=== PATIENT | female | born 1960 | race Caucasian/White ===

== ENCOUNTER 2024-11-16 14:03 | Observation (INO) | payer OTHER, SELFPAY ==
[2024-11-16 14:03] VITALS: BP 120/67; PULSE 85; RESP 14; TEMP 36.4; O2SAT 95
[2024-11-16 14:21] LABS: Absolute Lymphocyte Count 1.75 X10^3/uL (0.83-4.51); Absolute Neutrophil Count 6.4 X10^3/uL (2.0-7.7); Basophil# 0.04 X10^3/uL; Basophil% 0.4 % (0-1); Eosinophil# 0.04 X10^3/uL; Eosinophils% 0.4 % (0-5); Hematocrit 34.3 % (37-47); Hemoglobin 11.8 g/dL (12.0-15.0); Lymphocyte # 1.75 X10^3/ul (0.83-4.51); Lymphocyte % 19.5 % (19-41); Mean Corp Hgb Conc 34.4 g/dL (32-36); Mean Corpuscular Hgb 30.9 pg (27.0-32.0); Mean Corpuscular Volume 89.8 fL (81-99); Mean Platelet Vol. 9.3 fl (6.2-12.0); Monocyte# 0.75 X10^3/uL; Monocyte% 8.4 % (0-10); NRBC Flagged by Analyzer 0 % (0-5); Neutrophil # 6.36 X10^3/uL (2.7-7.7); Neutrophil % 70.9 % (47-70); Platelet Count 433 K/mm3 (150-450); RBC Distribution Width CV 12.9 % (11.6-14.6); RBC Distribution Width SD 42.4 fl (35.1-43.9); Red Blood Count 3.82 M/mm3 (4.2-5.4)
--- NOTE | 2024-11-16 14:33 | ED.VIS.BACK ---
HPI History of Present Illness Chief Complaint: Back PFSH PFS Home Medications ?Medication ?Instructions ?Recorded ?Last Taken ?Type amlodipine 5 mg tablet 5 mg PO DAILY 11/16/24 11/16/24 History losartan 50 mg tablet 50 mg PO DAILY 11/16/24 11/16/24 History pravastatin 40 mg tablet 40 mg PO QHS 11/16/24 11/15/24 History Allergy/AdvReac Type Severity Reaction Status Date / Time No Known Allergies Allergy Verified 11/16/24 14:07 Social History Smoking Status: Never smoker EXAM Physical Exam Const Vital Signs: 11/16/24 14:03 11/16/24 16:04 11/16/24 16:55 Temperature 97.5 F L 98.7 F Temperature Source Oral Pulse Rate 85 83 84 Respiratory Rate 14 19 H 25 H Blood Pressure 120/67 124/67 H 127/71 H Blood Pressure Mean 84 86 89 Pulse Ox 95 94 94 Oxygen Delivery Method Room Air Room Air MDM MDM MDM Narrative Medical decision making narrative: HISTORY OF PRESENT ILLNESS: 64-year-old female presents with concern for right mid upper back pain. She notes she had an abdominal surgery (colostomy) done 3 weeks ago in [place]. She notes last evening the pain started. She further states also last night she had right-sided back pain is located in the mid upper back along the inferior scapula. Is worse with a deep breath. Also no shortness of breath. Denies cough fever chills Patient denies any saddle anesthesia, urinary retention, bowel or bladder incontinence, lower extremity weakness, fever or IV drug use, no recent spinal manipulation or surgery, no recent urinary catheterization. The patient denies immobilization in the last 3 days, denies previous diagnosis of DVT or PE, hemoptysis, unilateral leg swelling or malignancy with treatment the last 6 months or palliative. No estrogen use noted. Does not recent surgery. REVIEW OF SYSTEMS: Pertinent positives: Back pain, right posterior rib pain, pleuritic pain Pertinent negatives: Syncope PHYSICAL EXAM: Nursing triage notes reviewed, Vital signs reviewed Constitutional: please see mdm HENT: MMM Eyes: Pupils equal round and reactive to light, Extraocular muscles intact Neck: No stridor, no JVD, full neck ROM Lungs: Clear to auscultation, No wheezing or rales. No increased work of breathing, no conversational dyspnea, no accessory muscle use, no nasal flaring. No respiratory distress noted Heart: Regular rate and rhythm, No murmurs, No rubs and No gallops, 2+ distal pulses (radial, femoral, posterior tibial) in all extremities Abdomen: Soft, there is no tenderness, rigidity, rebound or guarding, no obvious peritoneal signs, no palpable pulsatile abdominal masses, no auscultated abdominal bruit : No CVAT Extremities: No edema Back: No rashes noted. No midline step-offs deformities to the CT or L-spine. There is some slight tenderness palpation the infrascapular region Neuro: intact sensation L1-S1 dermatomal distributions. Intact 5/5 strength in hip flexion (T12-L3). Knee extension (L2-L4). Ankle dorsiflexion (L4-L5). Ankle plantar flexion (S1). Great toe extension (L5). 2+ patellar and Achilles DTRs. Skin: No rash or lesions noted MEDICAL DECISION MAKING: Chief Complaint: Back pain External records reviewed: No prior imaging studies noted in [facility]'s EMR Factors affecting care: History of hypertension, hyperlipidemia, history of colostomy Social determinants of health: none History obtained from others: none Consults: Internal medicine (Dr. Parker) discussed admitting to PCU as a observation admission. MDM Narrative: The patient was initially hemodynamically stable, afebrile and nontoxic-appearing. Exam without focal cardiopulmonary abnormalities. No signs of focal lower extremity neurologic deficits. No midline step-offs deformities. No sign of trauma or rashes. I considered the following differential diagnosis: Musculoskeletal back pain, nephrolithiasis, pyelonephritis, postsurgical abnormality, PE There is no CVA tenderness to suggest nephrolithiasis or pyelonephritis Triage labs were placed including CBC, CMP and urinalysis I obtained a broad lab and imaging workup to further elucidate etiology of patient's complaints. Given recent surgery, pleuritic pain and shortness of breath I was most concerned about a pulmonary embolism. ALL IMAGES (IF OBTAINED) HAVE BEEN PERSONALLY REVIEWED AND INTERPRETED BY MYSELF. EKG with normal sinus rhythm rate of 90, normal axis, normal intervals, QTc 440, no sign of STEMI, no sign of WPW, ARVD or Brugada syndrome. No sign of right heart strain. CBC with no leukocytosis, mild anemia, no thrombocytopenia High-sensitivity troponin is negative, no evidence of myocardial ischemia BNP within normal suggestive no significant heart strain No coagulopathy noted on coagulation studies CMP without evidence of acute kidney injury, significant electrolyte abnormality, anion gap to suggest end organ hypo-perfusion, no evidence of metabolic acidosis with a normal bicarbonate, no evidence of hepatobiliary obstructive pathology. CT of the chest shows evidence of bilateral PEs, right heart strain The synthesis of the patient's history, physical exam, labs images suggest likely pulmonary emboli. Given his right heart strain will start on heparin and admit for observation overnight. Discussed hospitalist who agreed. The patient and/or family, caregivers express understanding. The patient and/or family, caregivers agrees with the plan. Shared decision making: I will have a discussion with the patient and or visitors regarding risk/benefits of further testing or admission. They will be made aware of of the risk/benefits inherent in this decision they will be given the opportunity to voice understanding. Total critical care time today provided was at least 35 minutes. This excludes separately billable procedures. Critical care time (if documented) is secondary to the patient having high probability of clinically significant/life threatening deterioration in the patient's condition which required my urgent intervention. Impression: 1. Acute back pain 2. Acute pulmonary emboli Dispo: Admit to PCU This note was generated with [employer] dictation software. It may contain incorrect words, spelling, and punctuation that were not noted in review of the chart prior to signing. Lab Data Labs: Laboratory Results - last 24 hr 11/16/24 11/16/24 14:14 16:11 WBC 9.0 RBC 3.82 L Hgb 11.8 L Hct 34.3 L MCV 89.8 MCH 30.9 MCHC 34.4 RDW Std Deviation 42.4 RDW Coeff of Sea 12.9 Plt Count 433 MPV 9.3 Immature Gran % (Auto) 0.400 Neut % (Auto) 70.9 H Lymph % (Auto) 19.5 Mobile % (Auto) 8.4 Eos % (Auto) 0.4 Baso % (Auto) 0.4 Absolute Neuts (auto) 6.4 Absolute Lymphs (auto) 1.75 Nucleated RBC % 0 PT 16.2 H INR 1.3 APTT 34.6 Sodium 139 Potassium 3.9 Chloride 103 Carbon Dioxide 21.2 Anion Gap 15 BUN 12 Creatinine 0.69 L Est GFR (MDRD) Non-Af 98 BUN/Creatinine Ratio 17.5 Glucose 94 Calcium 9.4 Total Bilirubin 0.44 AST 28 ALT 29 Alkaline Phosphatase 101 Troponin T High Sens < 6 NT pro BNP II < 36 Total Protein 7.8 Albumin 3.5 Globulin 4.3 H Albumin/Globulin Ratio 0.8 L Lipase 22 Radiography Diagnostic Testing: Clinical Impression(s) from Imaging Studies Chest CTA 11/16/24 14:52 IMPRESSION: 1. Lobar, segmental and subsegmental pulmonary emboli involving the lower lobes bilaterally, as well as a small segmental pulmonary embolus in the right middle lobe. 2. Right heart strain present with an increased RV/LV ratio. 3. Bibasilar consolidative airspace opacities, possibly due to pulmonary edema, pneumonia or pulmonary infarct. 4. Trace bilateral pleural effusions. Findings discussed with Dr. Ramirez at 1545 hours on 11/16/2024 Reading Location: [facility] Discharge Plan Triage Chief Complaint: Back ED Provider: Uriel Ramirez Dx/Rx/DC Orders Prescriptions: No Action losartan 50 mg tablet 50 mg PO DAILY pravastatin 40 mg tablet 40 mg PO QHS amlodipine 5 mg tablet 5 mg PO DAILY Primary Care Provider: Corbin Archer Referrals: Corbin Archer, [Primary Care Provider] - Print Language: Vietnamese
--- NOTE | 2024-11-16 14:52 | CT_ITS ---
PROCEDURE: CTA CHEST W/WO CONTRAST 11/16/2024 REASON FOR EXAM: RIGHT SIDED PLEURITIC PAIN RECENT SURGERY R/O PE TECHNIQUE: CTA axial imaging of the chest with intravenous contrast. Coronal and Sagittal reconstruction series were provided. 3D, 3D post processing, 3D reconstructions, Maximum intensity projection (MIPs) Volume rendering and Shaded surface rendering was provided. One or more dose reduction techniques were used (e.g., Automated exposure control, adjustment of the mA and/or kV according to patient size, use of iterative reconstruction technique). COMPARISON: None. FINDINGS: Lungs/pleura: There are large consolidative airspace opacities in the lung bases bilaterally.Trace bilateral pleural effusions are present. Pulmonary arteries: Lobar, segmental and subsegmental PE are present in bilateral lower lobes. There is a segmental pulmonary embolus in the right middle lobe. Cardiovascular: The heart is normal in size.The RV/LV ratio is increased measuring 1.16.The aorta is unremarkable. Pericardium: No effusion. Mediastinum: Unremarkable. Lymph nodes: No lymph node enlargement by CT size criteria. Bones: No acute osseous abnormality. Soft tissues: Unremarkable. Upper abdomen: Hepatic steatosis is present. CT/CTA Chest W/WO Contrast IMPRESSION: 1. Lobar, segmental and subsegmental pulmonary emboli involving the lower lobes bilaterally, as well as a small segmental pulmonary embolus in the right middle lobe. 2. Right heart strain present with an increased RV/LV ratio. 3. Bibasilar consolidative airspace opacities, possibly due to pulmonary edema, pneumonia or pulmonary infarct. 4. Trace bilateral pleural effusions. Findings discussed with Dr. Ramirez at 1545 hours on 11/16/2024 Reading Location[facility]
--- NOTE | 2024-11-16 14:53 | EKG12_ITS ---
Test Reason : Blood Pressure : */* mmHG Vent. Rate : 90 BPM Atrial Rate : 90 BPM P-R Int : 170 ms QRS Dur : 90 ms QT Int : 360 ms P-R-T Axes : 48 11 64 degrees QTcB Int : 440 ms Normal sinus rhythm Normal ECG Confirmed by VI RAMOS, LAKIA ([id number]), publishing editor JENNY BOWIE ([id number]) on 11/17/2024 8:24:15 AM Referred By: DERICK Confirmed By: LAKIA LEBRON MD
[2024-11-16] MEDS: 0.9% Normal Saline (500mL Bag) 500 ML 1000 ML IV (15:05)
[2024-11-16] MEDS: Ketorolac 15 MG/ML Vial IV (15:06)
[2024-11-16] MEDS: Ondansetron 4 MG/2 ML Vial IV (15:06)
[2024-11-16] MEDS: Morphine 2 MG/ML Syringe IV (15:06)
[2024-11-16 15:09] LABS: ALB/GLOB Ratio 0.8 RATIO (0.9-2.4); AST(SGOT) 28 U/L (<=31); Alanine Aminotransfer ALT/SGPT 29 U/L (<=34); Albumin, Serum 3.5 g/dL (3.4-4.8); Alkaline Phosphatase 101 U/L (35-104); Anion Gap 15 (5-15); BUN 12 mg/dL (4-19); BUN/Creat Ratio 17.5 RATIO (10-20); Calcium,Total 9.4 mg/dL (7.6-11.0); Carbon Dioxide 21.2 mmol/L (21.0-32.0); Chloride 103 mmol/L (98-108); Creatinine, Serum 0.69 mg/dL (0.70-1.20); EST Glomerular Filtration Rate 98 (>60); Globulin 4.3 g/dL (2.2-4.2); Glucose 94 mg/dL (70-99); Potassium 3.9 mmol/L (3.3-5.1); Protein, Total 7.8 g/dL (5.9-8.4); Sodium Level 139 mmol/L (133-145); Total Bilirubin 0.44 mg/dL (0.00-1.30)
[2024-11-16 16:04] VITALS: BP 124/67; PULSE 83; RESP 19; O2SAT 94
[2024-11-16 16:07] VITALS: BMI 33.7
[2024-11-16] MEDS: Heparin Injection (Vial) 5,000 UNIT/ML VIAL 4000 UNIT IV (16:25)
[2024-11-16 16:26] LABS: Lipase 22 U/L (13-75)
[2024-11-16] MEDS: HEPARIN/D5w 25,000 UNITS 25,000 UNITS/250 ML IV.SOLN. 10 UNITS CONT INF (16:26)
[2024-11-16 16:28] LABS: Pro- Brain NATRIURETIC PEPTIDE < 36 pg/mL (<=900)
[2024-11-16 16:39] LABS: Troponin T High Sensitivity < 6 ng/L (<=14)
[2024-11-16 16:55] VITALS: BP 127/71; PULSE 84; RESP 25; TEMP 37.1; O2SAT 94
--- NOTE | 2024-11-16 16:58 | PCM.HP.STD ---
HPI - General General Date of Admission: 11/16/24 Date of Service: 11/16/24 Chief Complaint: Pleuritic pain, difficulty taking deep breaths HPI Narrative TIBURCIO DEL REAL, is a 64-year-old female with history of hypertension hyperlipidemia and recent perforated diverticulum in [place] requiring colostomy 3 weeks ago presented [facility] ED 11/16/2024 due to back pain. She was vitally stable and labs unremarkable aside from a hemoglobin of 11.8 however upon further discussion with the ED provider patient did report pain was worse with inspiration and felt deeper than a superficial back pain. CTA was obtained which showed multiple bilateral pulmonary emboli with concern for right heart strain and bibasilar consolidative opacities which were possibly due to pulmonary edema, pneumonia, or pulmonary infarct as well as trace bilateral pleural effusions. BNP and troponin within normal limits however given this concerns and the multiple emboli hospitalist contacted to admit under observation on blood thinners. Patient evaluated at bedside. She reports that she had been in her usual health until last night when she suddenly had a deep back pain with difficulty taking a deep breath, reports today it was not improving prompting her to come to the ED, denies any abdominal pain or problems with her ostomy, reports a little bit of a dry cough/clearing of her throat if she gets a tickle but no productive cough, no fevers or chills. Patient denies any swelling in her legs or any other problems since she left [facility] Home Medications ?Medication ?Instructions ?Recorded ?Last Taken ?Type amlodipine 5 mg tablet 5 mg PO DAILY 11/16/24 11/16/24 History losartan 50 mg tablet 50 mg PO DAILY 11/16/24 11/16/24 History pravastatin 40 mg tablet 40 mg PO QHS 11/16/24 11/15/24 History Allergy/AdvReac Type Severity Reaction Status Date / Time No Known Allergies Allergy Verified 11/16/24 14:07 Social History Smoking Status: Never smoker ROS ROS Narrative General: Denies fever/chills HENT: Denies headache, denies stuffy nose, denies sore throat EYES: Denies changes in vision Resp: Slight dry cough, difficulty taking a deep breath Cardiac: Denies chest pain GI: Denies abdominal pain, denies problem with ostomy, denies nausea/vomiting : Denies changes in urination Extremity: Denies swelling in her legs MSK: Denies weakness Neuro: Denies any numbness/tingling Heme: Denies any bleeding or bruising Skin: Denies rashes Psychiatric: No complaints voiced Vital Signs Vital Signs Vital Signs: 11/16/24 14:03 11/16/24 16:04 11/16/24 16:55 Temperature 97.5 F L 98.7 F Temperature Source Oral Pulse Rate 85 83 84 Respiratory Rate 14 19 H 25 H Blood Pressure 120/67 124/67 H 127/71 H Blood Pressure Mean 84 86 89 Pulse Ox 95 94 94 Oxygen Delivery Method Room Air Room Air Weight Weight: 89.2 kg Body Mass Index (BMI) 33.7 Physical Exam Narrative General: Alert, oriented, HEENT: Atraumatic, normocephalic Eyes: Anicteric, normal conjunctiva, extraocular movements grossly intact Neck: Supple Respiratory: Patient is slightly tachypneic as she has pain with taking a deep breath, patient diminished at the bases, too difficult for her to take a deep breath to have adequate auscultation of bases but no overt crackles, wheezes, rhonchi in the upper lung arteaga Cardiovascular: Regular rate and rhythm GI: Soft, nontender, nondistended Extremities: No edema Musculoskeletal: Moving all extremities Neuro: No overt focal neurological deficits Skin: No rashes appreciated Psych: Cooperative Results Lab / Micro Data 11/16/24 14:14 11/16/24 14:14 Labs: Laboratory Results - last 24 hr 11/16/24 14:14: WBC 9.0, RBC 3.82 L, Hgb 11.8 L, Hct 34.3 L, MCV 89.8, MCH 30.9, MCHC 34.4, RDW Std Deviation 42.4, RDW Coeff of Sea 12.9, Plt Count 433, MPV 9.3, Immature Gran % (Auto) 0.400, Neut % (Auto) 70.9 H, Lymph % (Auto) 19.5, Chase % (Auto) 8.4, Eos % (Auto) 0.4, Baso % (Auto) 0.4, Absolute Neuts (auto) 6.4, Absolute Lymphs (auto) 1.75, Nucleated RBC % 0, Sodium 139, Potassium 3.9, Chloride 103, Carbon Dioxide 21.2, Anion Gap 15, BUN 12, Creatinine 0.69 L, Est GFR (MDRD) Non-Af 98, BUN/Creatinine Ratio 17.5, Glucose 94, Calcium 9.4, Total Bilirubin 0.44, AST 28, ALT 29, Alkaline Phosphatase 101, Troponin T High Sens < 6, NT pro BNP II < 36, Total Protein 7.8, Albumin 3.5, Globulin 4.3 H, Albumin/Globulin Ratio 0.8 L, Lipase 22 Imaging Radiology Impression Chest CTA 11/16/24 14:52 IMPRESSION: 1. Lobar, segmental and subsegmental pulmonary emboli involving the lower lobes bilaterally, as well as a small segmental pulmonary embolus in the right middle lobe. 2. Right heart strain present with an increased RV/LV ratio. 3. Bibasilar consolidative airspace opacities, possibly due to pulmonary edema, pneumonia or pulmonary infarct. 4. Trace bilateral pleural effusions. Findings discussed with Dr. Ramirez at 1545 hours on 11/16/2024 Reading Location: [facility] Assessment & Plan Assessment/Plan (1) Bilateral pulmonary embolism: (2) HTN (hypertension): (3) Hyperlipidemia: (4) Colostomy in place: PLAN: Plan # New bilateral pulmonary emboli - CTA was obtained which showed multiple bilateral pulmonary emboli with concern for right heart strain and bibasilar consolidative opacities which were possibly due to pulmonary edema, pneumonia, or pulmonary infarct as well as trace bilateral pleural effusions. -Patient placed on heparin drip in the ED, will continue -Troponin and BNP within normal limits, patient presently hemodynamically stable but CT was concerned for possible right heart strain -Given patient's multiple clots with trace effusions and questionable pulmonary edema versus other etiology we will obtain echo -If patient remains stable may be able to DC tomorrow on oral anticoagulation. -May need to consider walking pulse ox prior to DC to verify patient does not desaturate on ambulation given CT findings -Incentive spirometer -Patient without fever, no productive cough, no elevated white blood cell counts do not think patient has concomitant pneumonia, hold off on antibiotics unless any of these were to manifest and there was high suspicion # Recent abdominal surgery status post colostomy -Reportedly patient had a perforated diverticulum in [place] roughly 3 weeks ago and required colostomy #Hypertension -Given concern for right heart strain holding losartan and amlodipine, resume when able # Hyperlipidemia -Continue pravastatin #DVT ppx: SCDs Melania Parker MD Charges/Coding Visit Charges Inpatient E&M: 42250 Init Hosp L2
[2024-11-16 17:11] LABS: International Normalized Ratio 1.3; Prothrombin Time (Protime)PT. 16.2 SECONDS (11.7-14.9)
[2024-11-16 17:21] LABS: Partial Thromboplast Time 34.6 Seconds (24.1-36.2)
[2024-11-16 17:59] VITALS: BMI 33.0
[2024-11-16 18:00] VITALS: BP 136/75; PULSE 83; RESP 17; TEMP 36.7; O2SAT 97
[2024-11-16 20:24] LABS: Troponin T High Sens 2 HR 9 ng/L (<=14)
[2024-11-16 21:00] VITALS: BP 130/65; PULSE 92; RESP 16; TEMP 36.5; O2SAT 95
[2024-11-16] MEDS: Acetaminophen 500 MG Tablet 1000 MG PO (21:56)
[2024-11-16] MEDS: Pravastatin 40 MG Tablet PO (21:56)
[2024-11-16] MEDS: Fenofibrate 145 MG Tablet PO (21:57)
[2024-11-16 22:26] VITALS: O2SAT 95
[2024-11-16 23:43] LABS: Troponin T High Sens 4 HR 7 ng/L (<=14)
[2024-11-17 00:45] LABS: Partial Thromboplast Time 49.7 Seconds (24.1-36.2)
[2024-11-17 03:09] VITALS: BP 130/74; PULSE 70; RESP 17; TEMP 36.6; O2SAT 94
[2024-11-17] MEDS: Acetaminophen 500 MG Tablet 1000 MG PO (05:51)
--- NOTE | 2024-11-17 05:55 | ECHOCS_ITS ---
Reason For Study Reason For Study: PULMONARY EMBOLISM Procedure This was a 2D Doppler, Color Flow transthoracic echocardiogram. The study was technically difficult. Contrast injection was performed. Exam performed portable in ED. Left Ventricle Normal LV size. Mild concentric left ventricular hypertrophy. Left ventricular systolic function is normal. The estimated ejection fraction is 60 %. Stage 1 diastolic dysfunction. No regional wall motion abnormalities noted. Right Ventricle Normal RV size. Normal systolic function. Atria The left and right atria are normal. Mitral Valve The mitral valve is structurally normal. No prolapse or stenosis seen. Mild (1+) mitral valve insufficiency. Tricuspid Valve Normal tricuspid valve. Mild (1+) tricuspid valve insufficiency. Pulmonary artery systolic pressure is 27 mmHg. Aortic Valve Trisinus/trileaflet aortic valve. Mild focal aortic valve calcification. There is no aortic stenosis. Pulmonic Valve The pulmonic valve is not well visualized. Great Vessels Normal sized aortic root. Pericardium/Pleural No pericardial effusion. Left pleural effusion. Medication Diluted definity 2ml given slow IV push to enhance endocardial definition. MMode/2D Measurements & Calculations LVIDd: 3.9 cm IVSd: 1.1 cm Ao root diam: 2.8 cm LVIDs: 2.8 cm LVPWd: 1.2 cm RVDd: 3.9 cm FS: 27.3 % LAV(MOD-bp): 39.3 ml LVAd ap4: 33.9 cm2 SV(MOD-sp4): 75.3 ml LAV(MOD-bp) Indexed: 20.4 ml/m2 LVLd ap4: 8.9 cm SI(MOD-sp4): 39.2 ml/m2 LAV(MOD-sp2): 52.9 ml EDV(MOD-sp4): 106.3 ml LAV(MOD-sp4): 29.3 ml EDV(sp4-el): 110.1 ml LVAs ap4: 15.3 cm2 LVLs ap4: 6.5 cm ESV(MOD-sp4): 31.0 ml ESV(sp4-el): 30.6 ml EF(MOD-sp4): 70.8 % EF(sp4-el): 72.2 % SV(sp4-el): 79.5 ml LA A4 area: 14.4 cm2 LA dimension(2D): 3.2 cm RA A4 area: 13.7 cm2 Time Measurements MV dec time: 0.19 sec Doppler Measurements & Calculations MV E max armando: 61.3 cm/sec Lat Peak E' Armando: 11.3 cm/sec Med Peak E' Armando: 10.4 cm/sec MV A max armando: 70.6 cm/sec E/E' lat: 5.4 E/E' med: 5.9 MV E/A: 0.87 MV V2 max: 76.9 cm/sec MV dec slope: 320.2 cm/sec2 Ao V2 max: 187.0 cm/sec MV max P.4 mmHg Ao max P.0 mmHg MV V2 mean: 55.3 cm/sec Ao V2 mean: 127.9 cm/sec MV mean P.3 mmHg Ao mean P.5 mmHg MV V2 VTI: 24.5 cm Ao V2 VTI: 38.6 cm AV (velocity ratio): 0.80 LV V1 max: 146.8 cm/sec PA V2 max: 96.7 cm/sec TR max armando: 247.1 cm/sec LV V1 max P.6 mmHg PA V2 mean: 68.5 cm/sec TR max P.4 mmHg LV V1 mean P.5 mmHg LV V1 mean: 99.6 cm/sec LV V1 VTI: 30.9 cm ECHO/Echo Complete W/ Contrast Interpretation Summary The estimated ejection fraction is 60 %. Mild concentric left ventricular hypertrophy. Mild (1+) mitral valve insufficiency. Mild (1+) tricuspid valve insufficiency. Stage 1 diastolic dysfunction. Contrast injection was performed. Ordering Physician: Melania Parker Referring Physician: RANDAL VIDAL Performed By: Lary Renteria RCS
[2024-11-17 07:27] LABS: Absolute Lymphocyte Count 1.81 X10^3/uL (0.83-4.51); Absolute Neutrophil Count 5.3 X10^3/uL (2.0-7.7); Basophil# 0.05 X10^3/uL; Basophil% 0.6 % (0-1); Eosinophil# 0.06 X10^3/uL; Eosinophils% 0.8 % (0-5); Hematocrit 29.7 % (37-47); Hemoglobin 10.4 g/dL (12.0-15.0); Lymphocyte # 1.81 X10^3/ul (0.83-4.51); Lymphocyte % 23.1 % (19-41); Mean Corpuscular Hgb 30.7 pg (27.0-32.0); Mean Corpuscular Volume 87.6 fL (81-99); Mean Platelet Vol. 9.3 fl (6.2-12.0); Monocyte# 0.63 X10^3/uL; NRBC Flagged by Analyzer 0 % (0-5); Neutrophil # 5.27 X10^3/uL (2.7-7.7); Neutrophil % 67.1 % (47-70); Platelet Count 386 K/mm3 (150-450); RBC Distribution Width CV 12.8 % (11.6-14.6); RBC Distribution Width SD 40.5 fl (35.1-43.9); Red Blood Count 3.39 M/mm3 (4.2-5.4); White Blood Count 7.9 K/mm3 (4.4-11.0)
[2024-11-17 07:29] LABS: Partial Thromboplast Time 54.9 Seconds (24.1-36.2)
[2024-11-17 08:55] LABS: Anion Gap 11 (5-15); BUN 15 mg/dL (4-19); BUN/Creat Ratio 23.7 RATIO (10-20); Calcium,Total 9.3 mg/dL (7.6-11.0); Chloride 106 mmol/L (98-108); Creatinine, Serum 0.64 mg/dL (0.70-1.20); EST Glomerular Filtration Rate 100 (>60); Estimated Creatinine Clearance 97.41 ml/min (50-250); Glucose 133 mg/dL (70-99); Potassium 3.8 mmol/L (3.3-5.1); Sodium Level 139 mmol/L (133-145)
[2024-11-17 09:41] VITALS: BP 133/84; PULSE 76; RESP 17; TEMP 36.6; O2SAT 95
[2024-11-17] MEDS: APIXABAN 5 MG TABLET 10 MG PO (09:42)
--- NOTE | 2024-11-17 10:00 | WOUNDNOTE ---
Was asked to see patient for ostomy. pt states she had surgery in [place] approx 3 weeks ago. noticed a small leak laterally. removed the appliance. some mild redness noted to the to the peristomal skin. cleansed with warm water. pat dry. lightly dusted with stoma powder and skin prep. applied a new 2 piece flat Horacio appliance with a paste ring. stoma is flush with skin and pink. pt tolerated well.
--- NOTE | 2024-11-17 10:30 | CASEMGMT ---
Addendum entered by Ailyn Lin 11/17/24 11:54: Discussed cost of refills on Eliquis. They state they can afford to pay for refills. They may f/u with [facility] to inquire if they will reimburse for this. They were made aware if it does become too expensive for the refills to f/u with PCP to discuss other possible options. They voice understanding. Home O2 amb testing has been completed. Pt does not qualify for home O2. Original Note: MARE NAIR NOTE: MARE CM to room. Pt resting in bed, @ bedside. Introduced self and role. Pt's PCP is Dr Corbin Archer. She had a recent colostomy surgery in [place] on vacation [address] Moseley in [place]. She plans to return for a reversal in the future. She manages her own colostomy and has supplies for 3 months. Pt to discharge home on Eliquis. Pt and made aware of 30-day free trial offer card and made aware this is a [id number]-lifetime use card. They would like to get new Rx's from [facility] [place] and would like [id number]. They were made aware the Eliquis trial offer card will be applied. Pt to have home O2 amb testing done prior to discharge. Discussed possible need of home o2 @ dc. Questions answered. Pt has access to electricity and a generator. Verbal list of local DME co's provided. They choose [employer], should pt qualify for home O2. Pt and deny having other dc concerns, needs, or questions. Noted that Rx for Eliquis has been sent to [facility] in [place]. Call placed to Jenny in [facility] retail pharmacy and she was made aware pt would like to get meds from them. She states she will call [facility] and have Rx transferred. She was notified pt would like [id number] as well. Haylee ELLIOTT RN, CM
--- NOTE | 2024-11-17 10:34 | PCM.DC ---
Discharge Instructions Diet Discharge Diet: Low fat / Low cholesterol DC O2, CPAP, BIPAP needs Home O2 Discharge instructions: No Dressing / Incision Discharge Activity: Return to Normal Activity Dressing / Incision Call your doctor if you observe: Fever of 101 or Higher, Shortness of breath, Dizziness, Fainting spells, Swelling in the ankles, Chest pain and Increased palpitations (irregular heartbeat) Follow Up Care Test Results: Test results from this visit will be discussed in further detail at your follow-up appointment, if applicable. Discharge Plan Admission Admit Date/Time: 11/16/24 17:01 Attending Provider: Faizan Mckenzie Primary Care Provider: Corbin Archer Consulting Providers: Melania Parker Instructions Patient Instructions: Embolism Pulmonary Dc, DVT/PE Discharge instruction sheet Discharge Orders/Prescriptions Prescriptions: New Eliquis DVT-PE Treat 30D Start 5 mg (74 tabs) tablets,dose pack See Rx Instructions .ROUTE .COMPLEX Qty: 74 0RF Rx Instructions: orally per package directions Continued losartan 50 mg tablet 50 mg PO DAILY pravastatin 40 mg tablet 40 mg PO QHS amlodipine 5 mg tablet 5 mg PO DAILY fenofibrate 160 mg tablet 160 mg PO DAILY Referrals / Follow Up: Kristie Monique MD [Med Staff - Active Staff] - Within 3 Months Corbin Archer DO [Primary Care Provider] - Within 1 Week Disposition Disposition (needs filled in before D/C Order can be placed): Home, Self Care
[2024-11-17 11:00] VITALS: O2SAT 92; O2SAT 94
--- NOTE | 2024-11-17 13:08 | PCM.DC.SUM ---
Providers Date of Admission: 11/16/24 Primary Care Physician: Dr. 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 Comment: Reason for Consult:: pt has ostomy Reason For Visit: NEW BILATERAL PE Diagnosis Discharge Diagnosis (1) Bilateral pulmonary embolism: Status: Acute Code(s): I26.99 - Other pulmonary embolism without acute cor pulmonale (2) HTN (hypertension): Status: Chronic Code(s): I10 - Essential (primary) hypertension (3) Hyperlipidemia: Status: Acute Code(s): E78.5 - Hyperlipidemia, unspecified (4) Colostomy in place: Status: Acute Code(s): Z93.3 - Colostomy status Medications at Discharge Home Medications amlodipine 5 mg tablet 5 mg PO DAILY blood pressure 11/16/24 fenofibrate 160 mg tablet 160 mg PO DAILY cholesterol 11/16/24 losartan 50 mg tablet 50 mg PO DAILY blood pressure 11/16/24 pravastatin 40 mg tablet 40 mg PO QHS cholesterol 11/16/24 apixaban 5 mg (74 tabs) tablets in a dose pack (Eliquis DVT-PE Treat 30D Start) See Rx Instructions PO .COMPLEX #74 tabs 11/17/24 Hospital Course Operations None Procedures 2-D Echocardiogram Summary of Care Provided Minutes Spent on Discharge: 36 Hospital Course: Per HPI: TIBURCIO DEL REAL, is a 64-year-old female with history of hypertension hyperlipidemia and recent perforated diverticulum in [place] requiring colostomy 3 weeks ago presented [facility] ED 11/16/2024 due to back pain. She was vitally stable and labs unremarkable aside from a hemoglobin of 11.8 however upon further discussion with the ED provider patient did report pain was worse with inspiration and felt deeper than a superficial back pain. CTA was obtained which showed multiple bilateral pulmonary emboli with concern for right heart strain and bibasilar consolidative opacities which were possibly due to pulmonary edema, pneumonia, or pulmonary infarct as well as trace bilateral pleural effusions. BNP and troponin within normal limits however given this concerns and the multiple emboli hospitalist contacted to admit under observation on blood thinners. Patient evaluated at bedside. She reports that she had been in her usual health until last night when she suddenly had a deep back pain with difficulty taking a deep breath, reports today it was not improving prompting her to come to the ED, denies any abdominal pain or problems with her ostomy, reports a little bit of a dry cough/clearing of her throat if she gets a tickle but no productive cough, no fevers or chills. Patient denies any swelling in her legs or any other problems since she left [place]. Hospital Course: 1. Bilateral pulmonary embolism?64-year-old female presents to the hospital with increasing shortness of breath and back pain. She was found to have bilateral pulmonary embolisms on CTA that was demonstrating possible right heart strain despite no troponin elevation or tachycardia and a normal proBNP. This is likely provoked as she rode the bus from home down to [place] and then while in [place] had a perforated diverticulum that required colectomy and colostomy and then they flew back home. Colostomy was about 3 weeks ago. This morning she was on room air at rest and did not require any oxygen with ambulation. She denied any further chest pain, lightheadedness, dizziness. She was transitioned to p.o. Eliquis. I discussed with her the plan for possible discharge today and she and her expressed understanding of the risk and benefits to going home and would like to go home today. An echo is pending but I do not feel he will elucidate much given her stability. CTA does demonstrate possible pulmonary infarct versus pulmonary edema however given her stable vital signs and her being anticoagulated these will resolve in time. Will continue with incentive spirometry on discharge as well. She remains afebrile without a leukocytosis. I will have her follow-up with hematology as an outpatient in a couple months as well. 2. Essential hypertension, hyperlipidemia are all chronic medical conditions which complicate her care. Her home medications were continued where appropriate Physical Exam Narrative General: Alert, Oriented x3, Cooperative, No apparent distress HEENT: Atraumatic, PERRLA, EOMI, Normocephalic Oral: Moist Mucosa Neck: Supple, No JVD Lungs: Diminished, Normal air movement, No rhonchi, No wheeze, No rales Cardiovascular: Regular rate, Regular Rhythm, Normal S1, Normal S2, No murmurs Abdomen: Soft, Non Tender, Non-Distended, No Hepato-splenomegaly, colostomy Extremities: No edema, Capillary Refill Less than 3 Seconds Skin: No rashes, No breakdown Musculoskeletal: No Tenderness to Palpation of Joints or Extremities Neurological: No focal neurological deficits, Motor Exam 5/5 strength throughout, Sensory exam intact to light touch and pain Psych/Mental Status: Normal Affect, Appropriate Weight / BMI Weight Weight: 192 lb 3.889 oz Body Mass Index (BMI) 33.0 ABG / Lab / Microbiology Data 11/17/24 06:58 11/17/24 06:58 Laboratory: Laboratory Results - last 24 hr 11/16/24 14:14: WBC 9.0, RBC 3.82 L, Hgb 11.8 L, Hct 34.3 L, MCV 89.8, MCH 30.9, MCHC 34.4, RDW Std Deviation 42.4, RDW Coeff of Sea 12.9, Plt Count 433, MPV 9.3, Immature Gran % (Auto) 0.400, Neut % (Auto) 70.9 H, Lymph % (Auto) 19.5, [place] % (Auto) 8.4, Eos % (Auto) 0.4, Baso % (Auto) 0.4, Absolute Neuts (auto) 6.4, Absolute Lymphs (auto) 1.75, Nucleated RBC % 0, Sodium 139, Potassium 3.9, Chloride 103, Carbon Dioxide 21.2, Anion Gap 15, BUN 12, Creatinine 0.69 L, Est GFR (MDRD) Non-Af 98, BUN/Creatinine Ratio 17.5, Glucose 94, Calcium 9.4, Total Bilirubin 0.44, AST 28, ALT 29, Alkaline Phosphatase 101, Troponin T High Sens < 6, NT pro BNP II < 36, Total Protein 7.8, Albumin 3.5, Globulin 4.3 H, Albumin/Globulin Ratio 0.8 L, Lipase 22 11/16/24 16:11: PT 16.2 H, INR 1.3, APTT 34.6 11/16/24 18:55: Troponin T Hi Sens 2 Hr 9 11/16/24 22:59: Troponin T Hi Sens 4Hr 7 11/17/24 00:09: APTT 49.7 H 11/17/24 06:58: WBC 7.9, RBC 3.39 L, Hgb 10.4 L, Hct 29.7 L, MCV 87.6, MCH 30.7, MCHC 35.0, RDW Std Deviation 40.5, RDW Coeff of Sea 12.8, Plt Count 386, MPV 9.3, Immature Gran % (Auto) 0.400, Neut % (Auto) 67.1, Lymph % (Auto) 23.1, [place] % (Auto) 8.0, Eos % (Auto) 0.8, Baso % (Auto) 0.6, Absolute Neuts (auto) 5.3, Absolute Lymphs (auto) 1.81, Nucleated RBC % 0, APTT 54.9 H, Sodium 139, Potassium 3.8, Chloride 106, Carbon Dioxide 22.0, Anion Gap 11, BUN 15, Creatinine 0.64 L, Estim Creat Clear Calc 97.41, Est GFR (MDRD) Non-Af 100, BUN/Creatinine Ratio 23.7 H, Glucose 133 H, Calcium 9.3 Radiography Diagnostic Testing: Radiology Impression Chest CTA 11/16/24 14:52 IMPRESSION: 1. Lobar, segmental and subsegmental pulmonary emboli involving the lower lobes bilaterally, as well as a small segmental pulmonary embolus in the right middle lobe. 2. Right heart strain present with an increased RV/LV ratio. 3. Bibasilar consolidative airspace opacities, possibly due to pulmonary edema, pneumonia or pulmonary infarct. 4. Trace bilateral pleural effusions. Findings discussed with Dr. Ramirez at 1545 hours on 11/16/2024 Reading Location: [facility] Instructions Discharge Diet: Low fat / Low cholesterol Call your doctor if you observe: Fever of 101 or Higher, Shortness of breath, Dizziness, Fainting spells, Swelling in the ankles, Chest pain and Increased palpitations (irregular heartbeat) DC O2, CPAP, BIPAP Needs Home O2 Discharge instructions: No Meaningful Use Info Meaningful Use Meaningful Use Diagnoses (Choose all that apply): None applicable Ischemic Stroke Statin Dosing Therapy Reference: STATIN DOSE THERAPY REFERENCE: * Patients > 75 years receive moderate or high dose statin therapy. * Patients 75 years or YOUNGER should receive HIGH intensity statin dose unless contraindicated. You will be required to document reason for non-treatment if statin daily dose does not meet guidelines. HIGH DOSE STATIN THERAPY DAILY Atorvastatin > than or = to 40 mg Rosuvastatin > than or = to 20 mg Amlodipine + Atorvastatin > than or = to 2.5/40 mg Ezetimibe + Simvastatin 10/80 mg Simvastatin 80mg Discharge Plan Admission Admit Date/Time: 11/16/24 17:01 Attending Provider: Faizan Mckenzie Primary Care Provider: Corbin Archer Consulting Providers: Melania Parker Instructions Patient Instructions: DVT/PE Discharge instruction sheet, Embolism Pulmonary Dc Discharge Orders/Prescriptions Prescriptions: New Eliquis DVT-PE Treat 30D Start 5 mg (74 tabs) tablets,dose pack See Rx Instructions .ROUTE .COMPLEX Qty: 74 0RF Rx Instructions: orally per package directions Continued losartan 50 mg tablet 50 mg PO DAILY pravastatin 40 mg tablet 40 mg PO QHS amlodipine 5 mg tablet 5 mg PO DAILY fenofibrate 160 mg tablet 160 mg PO DAILY Referrals / Follow Up: Kristie Monique MD [Med Staff - Active Staff] - Within 3 Months Corbin Archer DO [Primary Care Provider] - Within 1 Week Disposition Disposition (needs filled in before D/C Order can be placed): Home, Self Care Charges/Coding Visit Charges Inpatient E&M: 13106 Disch Hosp >30min
--- NOTE | 2024-11-17 14:22 | CHAPLAIN ---
Type of Pastoral Visit ___ Initial Visit ___ Follow-up Visit ___ On-call Visit ___ General Patient Visit ___ Spiritual Assessment ___ Family Conference ___ Bereavement ___ Rapid Response ___ Code Blue ___ Other (describe below) Pastoral Care Referral From ___ Patient ___ Family ___ Nurse ___ Physician ___ Box Sealing Machine Operator ___ Outsole Beveler ___ Other (describe below) Sacrament/Intervention ___ Active listening ___ Anointing ___ Orthodox ___ Bereavement ___ Communion ___ Carole exploration ___ ___ Life review ___ Prayer ___ Reconciliation ___ Sacrament of Sick ___ Supportive presence ___ Wedding ___ Other (describe below) Pastoral Comments patient was discharged before seen by this glass inserter
== END 2024-11-17 10:40 | disposition home or self-care (01) ==
LOC: ED 14:40 → PCU 17:41
PROVIDERS: Admitting Provider Internal Medicine; Emergency Provider Emergency Medicine; PCP Family Medicine; Visit Provider Family Medicine
DX: I26.99 Other pulmonary embolism without acute cor pulmonale (principal); Z93.3 Colostomy status; I26.94 Multiple subsegmental thrombotic pulmonary emboli without acute cor pulmonale; T81.718A Complication of other artery following a procedure, not elsewhere classified, initial encounter; I10 Essential (primary) hypertension; E78.5 Hyperlipidemia, unspecified; M54.9 Dorsalgia, unspecified; Y83.8 Other surgical procedures as the cause of abnormal reaction of the patient, or of later complication, without mention of misadventure at the time of the procedure
CPT/HCPCS: 36415; 71275; 80048; 80053; 83690; 83880; 84484; 85025; 85610; 85730; 93005; 93306; 96365; 96366; 96375; 99283; Q9957; Q9967; A4216; C8929; J2405

== ENCOUNTER 2024-12-29 09:23 | Emergency (ER) | payer OTHER, SELFPAY ==
[2024-12-29 09:24] VITALS: BP 134/82; PULSE 71; RESP 19; TEMP 36.6; O2SAT 98; BMI 33.6
--- NOTE | 2024-12-29 10:59 | CT_ITS ---
EXAM: CT Abdomen and Pelvis With Intravenous Contrast CLINICAL INDICATION: COLOSTOMY ABNORMALITY TECHNIQUE: Axial computed tomography images of the abdomen and pelvis with intravenous contrast. This CT exam was performed using one or more of the following dose reduction techniques: automated exposure control, adjustment of the mA and/or kV according to patient size, and/or use of iterative reconstruction technique. COMPARISON: No relevant prior studies available. FINDINGS: LUNG BASES: Left basilar atelectasis or scarring. ABDOMEN: LIVER: Hepatomegaly with fatty infiltration. GALLBLADDER AND BILE DUCTS: Cholelithiasis. No ductal dilation. PANCREAS: Unremarkable. No mass. No ductal dilation. SPLEEN: Unremarkable. No splenomegaly. ADRENALS: Unremarkable. No mass. KIDNEYS AND URETERS: Unremarkable. No solid mass. No hydronephrosis. STOMACH AND BOWEL: Fecal retention in the colon consistent with constipation. Left lower abdominal quadrant colostomy. No obstruction. No mucosal thickening. PELVIS: APPENDIX: No findings to suggest acute appendicitis. BLADDER: Unremarkable. No mass. REPRODUCTIVE: Unremarkable as visualized. ABDOMEN and PELVIS: INTRAPERITONEAL SPACE: Unremarkable. No free air. No significant fluid collection. BONES/JOINTS: No acute fracture. No dislocation. SOFT TISSUES: Umbilical hernia containing fat. VASCULATURE: Scattered calcified atherosclerotic disease of aorta. No abdominal aortic aneurysm. LYMPH NODES: Unremarkable. No enlarged lymph nodes. CT/Abdomen/Pelvis WITH Contrast IMPRESSION: 1. Hepatomegaly with fatty infiltration. 2. Cholelithiasis. 3. Fecal retention in the colon consistent with constipation. 4. Umbilical hernia containing fat. Reading [facility]
[2024-12-29 11:36] LABS: Absolute Lymphocyte Count 2.73 X10^3/uL (0.83-4.51); Absolute Neutrophil Count 2.8 X10^3/uL (2.0-7.7); Basophil# 0.03 X10^3/uL; Basophil% 0.5 % (0-1); Eosinophil# 0.11 X10^3/uL; Eosinophils% 1.8 % (0-5); Hematocrit 34.5 % (37-47); Lymphocyte # 2.73 X10^3/ul (0.83-4.51); Lymphocyte % 44.8 % (19-41); Mean Corp Hgb Conc 34.8 g/dL (32-36); Mean Corpuscular Volume 89.1 fL (81-99); Mean Platelet Vol. 9.2 fl (6.2-12.0); Monocyte% 6.6 % (0-10); NRBC Flagged by Analyzer 0 % (0-5); Neutrophil # 2.82 X10^3/uL (2.7-7.7); Neutrophil % 46.1 % (47-70); Platelet Count 300 K/mm3 (150-450); RBC Distribution Width CV 13.5 % (11.6-14.6); RBC Distribution Width SD 44.5 fl (35.1-43.9); Red Blood Count 3.87 M/mm3 (4.2-5.4); White Blood Count 6.1 K/mm3 (4.4-11.0)
[2024-12-29 11:37] VITALS: BP 124/69; PULSE 57; RESP 14; O2SAT 99
[2024-12-29 11:57] LABS: Anion Gap 10 (5-15); BUN 17 mg/dL (4-19); Calcium,Total 9.5 mg/dL (7.6-11.0); Carbon Dioxide 22.9 mmol/L (21.0-32.0); Chloride 108 mmol/L (98-108); Creatinine, Serum 0.73 mg/dL (0.70-1.20); EST Glomerular Filtration Rate 93 (>60); Estimated Creatinine Clearance 86.21 ml/min (50-250); Glucose 98 mg/dL (70-99); Potassium 3.8 mmol/L (3.3-5.1); Sodium Level 141 mmol/L (133-145)
--- NOTE | 2024-12-29 12:47 | EDS_ITS ---
HPI History of Present Illness Chief Complaint: Wound Informant: patient Narrative Narrative: Patient is a 64-year-old female with history of PE (on Eliquis) as well as perforated diverticulitis status post resection and anastomosis with colostomy. This was performed and [facility] in October of this year. She is presenting today for of this last week her who normally changes her bags noticed that her stoma is getting smaller. Her stools have been more like ribbon. She feels that she is maybe had some decrease stool output but is still passing stool and gas. She started to feel little bloated but nothing too bad. No associated nausea and vomiting. Came in for further evaluation. She is hopeful to have her ostomy reversed in May. Came in for further evaluation. Denies any fever or chills. Denies any black or blood in her stool. Has no abdominal pain. Notes that last week she did take some MiraLAX. [facility] Medical History History of diverticulitis of colon Colostomy in place Hyperlipidemia HTN (hypertension) Home Medications ?Medication ?Instructions ?Recorded ?Last Taken ?Type amlodipine 5 mg tablet 5 mg PO DAILY blood pressure 11/16/24 11/16/24 History fenofibrate 160 mg tablet 160 mg PO DAILY cholesterol 11/16/24 Unknown History losartan 50 mg tablet 50 mg PO DAILY blood pressur e 11/16/24 11/16/24 History pravastatin 40 mg tablet 40 mg PO QHS cholesterol 11/15/24 History apixaban 5 mg (74 tabs) tablets in See Rx Instructions PO .COMPLEX 11/17/24 Unknown Rx a dose pack (Eliquis DVT-PE Treat #74 tabs 30D Start) Allergy/AdvReac Type Severity Reaction Status Date / Time No Known Allergies Allergy Verified 12/29/24 09:24 Social History Smoking Status: Never smoker ROS ROS ED Constitutional Constitutional ED: Denies chills or fever(s) Respiratory/Chest Respiratory/Chest: Denies cough Gastrointestinal Gastrointestinal: Reports other Details: Narrowing of her stoma, slightly decreased stool output ; Denies abdominal pain, diarrhea, nausea or vomiting Musculoskeletal Musculoskeletal: Denies arthralgias or myalgias Neurologic Neurologic: Denies weakness Hematologic/Lymphatic Hematologic/Lymphatic: Reports easy bleeding, easy bruising and other Details: On Eliquis EXAM Physical Exam Const Vital Signs: 12/29/24 09:24 12/29/24 11:37 12/29/24 13:00 Temperature 97.8 F Temperature Source Oral Pulse Rate 71 57 L 60 Respiratory Rate 19 H 14 15 Blood Pressure 134/82 H 124/69 H 125/78 H Blood Pressure Mean 99 87 93 Pulse Ox 98 99 98 Oxygen Delivery Method Room Air Room Air 12/29/24 15:00 Temperature Temperature Source Pulse Rate 60 Respiratory Rate 14 Blood Pressure 119/78 Blood Pressure Mean 91 Pulse Ox 99 Oxygen Delivery Method Positive well nourished and well developed General Appearance ED: well developed and NAD HEENT Reports moist mucous membranes Neck supple Chest Wall inspection of chest normal and palpation of chest normal Resp normal respiratory effort and clear to auscultation bilaterally Cardio regular rate and regular rhythm GI non-tender and non-distended GI Narrative: Colostomy in place on the left side of the abdomen. Bag is removed. The stoma appears slightly prolapsed and is quite narrow. I cannot even fit my pinky through it. There is brown stool in her ostomy bag. It is nontender. No active bleeding. Surrounding skin is soft and nontender. Abdomen is soft and nontender. Neuro oriented x3 Sensorium / Orientation: alert Motor Exam: Negative for general weakness Psych mental status grossly normal Skin no rashes or lesions noted and no wounds MDM MDM MDM Narrative Medical decision making narrative: Patient evaluated for concern of closure of her stoma at her colostomy site. She continues stool output but has had decreased output and states it has been more ribbonlike. The colostomy was placed in October of this year so relatively new. She does not have associated tenderness. Physical exam largely benign however the stoma is very tight. I did speak with Dr. Woo, general surgery. He requested CT abdomen pelvis with IV and oral contrast to ensure there is no obstruction. He will come down into evaluate the patient. CT shows degree of constipation with no signs of obstruction or other acute process. He evaluated the patient at the bedside. He is able to dilate her stoma. Will have her follow-up with colorectal at [facility], Dr. Cisneros. She will follow-up this coming Wednesday. In the meantime stick to a liquid diet. Counseled on return precautions including decreased stool output, abdominal pain, nausea, vomiting or any other concerns. They are in agreement. Discharged home in stable condition. Lab Data Attestation: I reviewed the patient's lab results. Labs: Laboratory Results - last 24 hr 12/29/24 11:13 WBC 6.1 RBC 3.87 L Hgb 12.0 Hct 34.5 L MCV 89.1 MCH 31.0 MCHC 34.8 RDW Std Deviation 44.5 H RDW Coeff of Sea 13.5 Plt Count 300 MPV 9.2 Immature Gran % (Auto) 0.200 Neut % (Auto) 46.1 L Lymph % (Auto) 44.8 H [place] % (Auto) 6.6 Eos % (Auto) 1.8 Baso % (Auto) 0.5 Absolute Neuts (auto) 2.8 Absolute Lymphs (auto) 2.73 Nucleated RBC % 0 Sodium 141 Potassium 3.8 Chloride 108 Carbon Dioxide 22.9 Anion Gap 10 BUN 17 Creatinine 0.73 Estim Creat Clear Calc 86.21 Est GFR (MDRD) Non-Af 93 BUN/Creatinine Ratio 23.0 H Glucose 98 Calcium 9.5 Radiography Diagnostic Testing: Clinical Impression(s) from Imaging Studies Abdomen/Pelvis CT 12/29/24 10:59 IMPRESSION: 1. Hepatomegaly with fatty infiltration. 2. Cholelithiasis. 3. Fecal retention in the colon consistent with constipation. 4. Umbilical hernia containing fat. Reading Location: [facility] Discharge Plan Triage Chief Complaint: Wound ED Provider: Taylor Sanz Dx/Rx/DC Orders Clinical Impression: Colostomy dysfunction Prescriptions: No Action losartan 50 mg tablet 50 mg PO DAILY pravastatin 40 mg tablet 40 mg PO QHS amlodipine 5 mg tablet 5 mg PO DAILY fenofibrate 160 mg tablet 160 mg PO DAILY Eliquis DVT-PE Treat 30D Start 5 mg (74 tabs) tablets,dose pack See Rx Instructions .ROUTE .COMPLEX Qty: 74 0RF Rx Instructions: orally per package directions Primary Care Provider: Corbin Archer Referrals: Corbin Archer DO [Primary Care Provider] - Anastacio Cisneros MD [Non-Staff] - Activity Restrictions/Additional Instructions: Please follow-up with colorectal surgery on Wednesday as discussed with Dr. Woo. If you develop any abdominal pain, difficulty passing stool, nausea or vomiting please return to the emergency room. In the meantime stick to a liquid diet. Print Language: Portuguese Disposition Disposition: Home, Self Care
[2024-12-29 13:00] VITALS: BP 125/78; PULSE 60; RESP 15; O2SAT 98
[2024-12-29 15:00] VITALS: BP 119/78; PULSE 60; RESP 14; O2SAT 99
[2024-12-29 16:52] VITALS: BP 127/74; PULSE 77; RESP 17; TEMP 36.1; O2SAT 99
--- NOTE | 2024-12-29 16:53 | HP.PCM_ITS ---
HPI - General General Date of Service: 12/29/24 Chief Complaint: Decreasing size of colostomy HPI Narrative TIBURCIO DEL REAL, is a 64 F who presents to [facility] ER with complaints of rapidly decreasing stoma size. She presents today with her and he shares that over the last 4 days he observed a rapid decrease in the size of her stoma as he is the primary person that performs the ostomy care. Mrs. Del Real reports that she has had ongoing bowel movements but the overall size has seemed smaller. Patient reports that she underwent a colon resection with a colostomy creation on 10/28/2024 after she had perforated diverticulitis while in [place]. She unfortunately experienced a perioperative pulmonary embolus and was placed on Eliquis. I was contacted by emergency department after emergency medicine was unable to digitize the stoma with their little finger. I requested CT imaging of the abdomen pelvis be performed with both oral and IV contrast. This study showed fecal retention in the distal colon but no evidence of obstruction. [facility] Medical History History of diverticulitis of colon Colostomy in place Hyperlipidemia HTN (hypertension) Home Medications ?Medication ?Instructions ?Recorded ?Last Taken ?Type amlodipine 5 mg tablet 5 mg PO DAILY blood pressure 11/16/24 11/16/24 History fenofibrate 160 mg tablet 160 mg PO DAILY cholesterol 11/16/24 Unknown History losartan 50 mg tablet 50 mg PO DAILY blood pressur e 11/16/24 11/16/24 History pravastatin 40 mg tablet 40 mg PO QHS cholesterol 11/15/24 History apixaban 5 mg (74 tabs) tablets in See Rx Instructions PO .COMPLEX 11/17/24 Unknown Rx a dose pack (Eliquis DVT-PE Treat #74 tabs 30D Start) Allergy/AdvReac Type Severity Reaction Status Date / Time No Known Allergies Allergy Verified 12/29/24 09:24 Social History Smoking Status: Never smoker Vital Signs Vital Signs Vital Signs: 12/29/24 09:24 12/29/24 11:37 12/29/24 13:00 Temperature 97.8 F Temperature Source Oral Pulse Rate 71 57 L 60 Respiratory Rate 19 H 14 15 Blood Pressure 134/82 H 124/69 H 125/78 H Blood Pressure Mean 99 87 93 Pulse Ox 98 99 98 Oxygen Delivery Method Room Air Room Air 12/29/24 15:00 12/29/24 16:52 Temperature 96.9 F L Temperature Source Pulse Rate 60 77 Respiratory Rate 14 17 Blood Pressure 119/78 127/74 H Blood Pressure Mean 91 91 Pulse Ox 99 99 Oxygen Delivery Method Weight Weight: 195 lb 12.8 oz Body Mass Index (BMI) 33.6 Physical Exam Const alert, oriented x3, no apparent distress and well nourished Resp normal respiratory effort GI GI Narrative: Mildly obese, well-healed midline laparotomy incision, no visible herniation, nondistended, soft, left lower quadrant colostomy located with exceptionally small stoma estimated no more than 2 cm in diameter. Mucosa is visible but there is certainly an appearance of stomal retraction. I attempted to digitized the opening with my little finger but was unable to completely intubate the area. Thin ribbonlike stool was witnessed coming from the ostomy at several points during the exam. Results Lab / Micro Data 12/29/24 11:13 12/29/24 11:13 Labs: Laboratory Results - last 24 hr 12/29/24 11:13: WBC 6.1, RBC 3.87 L, Hgb 12.0, Hct 34.5 L, MCV 89.1, MCH 31.0, MCHC 34.8, RDW Std Deviation 44.5 H, RDW Coeff of Sea 13.5, Plt Count 300, MPV 9.2, Immature Gran % (Auto) 0.200, Neut % (Auto) 46.1 L, Lymph % (Auto) 44.8 H, Martin % (Auto) 6.6, Eos % (Auto) 1.8, Baso % (Auto) 0.5, Absolute Neuts (auto) 2.8, Absolute Lymphs (auto) 2.73, Nucleated RBC % 0, Sodium 141, Potassium 3.8, Chloride 108, Carbon Dioxide 22.9, Anion Gap 10, BUN 17, Creatinine 0.73, Estim Creat Clear Calc 86.21, Est GFR (MDRD) Non-Af 93, BUN/Creatinine Ratio 23.0 H, Glucose 98, Calcium 9.5 Imaging Radiology Impression Abdomen/Pelvis CT 12/29/24 10:59 IMPRESSION: 1. Hepatomegaly with fatty infiltration. 2. Cholelithiasis. 3. Fecal retention in the colon consistent with constipation. 4. Umbilical hernia containing fat. Reading Location: [facility] Assessment & Plan Assessment/Plan (1) Colostomy dysfunction: PLAN: Patient is 64-year-old female 2-month status post Lind's procedure who presents with evidence of stomal retraction and contraction of the skin about the site such that it no longer accommodates even the breath of the little finger. This has resulted in some caliber loss for the stool coming through the ostomy appliance but there is no evidence of obstruction. When I was unsuccessful in digitizing the ostomy I first performed limited dilation using a lubricated 16 Lebanese Gutierrez catheter and inflating the balloon with saline. However, this did not fully work as the balloon stopped either proceed further into the stoma or back out depending on its location relative to the stenotic area. Therefore I requested ureteral sound dilators and using these tools I very gently serially dilated the opening starting at 16 Lebanese slowly advancing until I was able to reliably obtain passage of the 24 Lebanese dilator. A small amount of mucosal bleeding was noted superior medially but the bleeding stopped after the stimulus was removed. Outside of the above I found no emergent indication for inpatient admission and given both the unique situation presented above as well as patient's concurrent anticoagulation therapy for her pulmonary embolus I recommended evaluation at a tertiary center with colorectal expertise. I believe Mrs. Del Real may be a candidate for colostomy reversal but that this process may be more complex than usual given the above situation. I felt that although the patient did not require inpatient admission she should be evaluated rather urgently on an outpatient basis. With this in mind I contacted [facility] colorectal surgery office and presented the situation. Their master scheduler worked with me to establish a clinic visit for patient on January [address] Cisneros. Process was further set in motion by beginning financial clearance for the appointment through social work. Patient was made aware of this appointment and I then spent some time discussing red flag warning signs which they should he did not present to emergency attention if witnessed in the interim before their appointment. They confirmed understanding and comfort with the plan. Stu Woo MD General Surgery Endocrine Surgery Pager: [facility] [address] [place] [address], [facility], [address] [place] [address] Office: [phone] Charges/Coding Visit Charges Office Visits / Consults: 85034 ED Visit; Moderate Severity
--- NOTE | 2024-12-29 17:17 | CM.ED ---
Social work This SW was approached by Dr. Woo with request to start the process for patient to gain financial clearance with [facility] due to patient needing to have a procedure done next 01/03/25. This SW called Natty [facility] [employer] Liaison, to make sure Natty was not already involved and Natty confirmed this. Per Natty, the [employer] should be accepted at many of the local facilities. Called [facility]'s Metal Pourer (ph: [phone]) to receive financial clearance. Provided the financial quantitative analyst with necessary patient information who stated the [employer] is in network with both [facility] and [facility]. This financial quantitative analyst forwarded this SW to [facility] scheduling line to help register patient for appointment (ph: [phone]). Per this [facility] staff, patient would need to be registered with the colorectal department, but they were closed for the day. Patient's appointment reportedly not scheduled until Wednesday01/03/25 so there is time to verify financial coverage. Plan: this SW or Nat[facility] [employer] [facility]ia[facility], to follow up with [facility] on Wednesday01/01/25. Mehreen Reyes, LEAD MEDICAL TECHNOLOGIST, SOLUTION DESIGNER
== END 2024-12-29 16:52 | disposition home or self-care (01) ==
PROVIDERS: Emergency Provider Emergency Medicine; PCP Family Medicine; Visit Provider Emergency Medicine
DX: Z93.3 Colostomy status (principal); I10 Essential (primary) hypertension; E78.5 Hyperlipidemia, unspecified; Z79.899 Other long term (current) drug therapy; Z79.01 Long term (current) use of anticoagulants
CPT/HCPCS: 74177; 80048; 85025; 99283; Q9967; A4216

== ENCOUNTER 2025-07-11 12:39 | Emergency (ER) | payer OTHER, SELFPAY ==
[2025-07-11 12:40] VITALS: BP 151/85; PULSE 66; RESP 18; TEMP 36.1; O2SAT 100
--- NOTE | 2025-07-11 12:57 | RAD_ITS ---
PROCEDURE: KNEE 4 OR MORE VIEWS 07/11/2025 REASON FOR EXAM: INJURY TECHNIQUE: Procedure Code: RADKN Modality: DX Procedure: KNEE 4 OR MORE VIEWS Laterality: Left COMPARISON: None FINDINGS: Bones: No fracture. No suspicious bone lesion. Joints: Mild degree of joint space narrowing involving the medial compartment of the knee joint. Effusion: No effusion. Soft tissues: Soft tissues are unremarkable. Other: RAD/Knee 4 or More Views IMPRESSION: Mild degree of joint space narrowing involving the medial compartment of the kn ee joint. Reading Location: [id number]
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
--- NOTE | 2025-07-11 13:00 | RAD_ITS ---
PROCEDURE: KNEE 4 OR MORE VIEWS 07/11/2025 REASON FOR EXAM: INJURY TECHNIQUE: Procedure Code: RADKN Modality: DX Procedure: KNEE 4 OR MORE VIEWS Right knee three views COMPARISON: None FINDINGS: There is linear lucency in the lateral tibial plateau which may represent nondisplaced or slightly impacted fracture. Minimal spurring is noted at the medial femoral condyle. There is a visible joint effusion. Mineralization is normal. There is no visible atherosclerosis. RAD/Knee 4 or More Views IMPRESSION: There is linear lucency in the lateral tibial plateau which may represent nondi splaced or slightly impacted fracture. There is a visible joint effusion. Critical results were discussed with Dr. Rapp by Dr. Pete at the time o f dictation. Reading Location: [facility]
--- NOTE | 2025-07-11 13:15 | RAD_ITS ---
PROCEDURE: FEMUR MIN 2 VIEWS 07/11/2025 REASON FOR EXAM: INJURY TECHNIQUE: Procedure Code: RADFEM Modality: DX Procedure: FEMUR MIN 2 VIEWS Laterality: Right femur. COMPARISON: None FINDINGS: Bones: No fracture is seen. Joints: Normal alignment at the hip and knee. Soft tissues: Soft tissues are unremarkable. Other: RAD/Femur Min 2 Views IMPRESSION: No acute abnormality is seen. Reading Location: [id number]
[2025-07-11 13:49] VITALS: O2SAT 98; BMI 36.6
--- NOTE | 2025-07-11 13:57 | CT_ITS ---
PROCEDURE: EXTREMITY LOWER WITHOUT CONTRA 07/11/2025 REASON FOR EXAM: TIBIAL PLATEAU FRACTURE TECHNIQUE: Procedure Code: CTELWO Modality: CT Procedure: EXTREMITY LOWER WITHOUT CONTRA Coronal and Sagittal reconstruction series were provided. One or more dose reduction techniques were used (e.g., Automated exposure control, adjustment of the mA and/or kV according to patient size, use of iterative reconstruction technique). RADIATION DOSE SUMMARY: CTDlvol: 15.35 mGy DLP: 484.25 mGycm COMPARISON: Right humeral x-ray 07/11/2025. FINDINGS: Bones: Acute 1 x 1.5 cm fractures at the lateral aspect of the medial plate. Acute cortical fracture at the posterior medial aspect of the lateral tibial plate. No compression of the tibial plate. Joints: Small knee effusion. Soft Tissues: No soft tissue abnormalities. CT/Extremity Lower without Contra IMPRESSION: Acute 1 x 1.5 cm fractures at the lateral aspect of the medial plate. Acute cortical fracture at the posterior medial aspect of the lateral tibial pl ate. No compression of the tibial plate. Reading Location: [id number]
[2025-07-11 15:14] VITALS: BP 143/73; PULSE 116; RESP 18; TEMP 37.1; O2SAT 98
--- OUTSIDE RECORDS SUMMARY | 2025-07-11 15:26 | XMS RPT_ITS | CCD ---
Author Organization [facility] Care Team Providers Care Director Orange Name Role Phone Dr. Corbin Vidal DO Primary Care Provider Dr. Uriel Ramirez DO Emergency Provider [phone] Keith RAMOS, Dr. Velázquez Attending Provider Keith RAMOS, Dr. Velázquez Admit Provider Dr. Melania Parker MD Other Provider Jonah RAMOS, Dr. Faizan Lazo Attending Provider Dr. Luzma Morel MD Attending Provider Dr. Faizan Mckenzie MD Other Provider Dr. Taylor Sanz DO Emergency Provider Anastacio Cisneros MD Unavailable [facility] Primary [facility] Provider Pradip RAMOS, [place] [facility] Luzma Morel MD Attending Provider Dr. Taylor Sanz DO Attending Provider Dr. Taylor Sanz DO Referring Provider [phone] Chilo RAMOS, Dr. Peraza Attending Provider Dr. Jamie Castañeda MD Attending Provider Dr. Faizan Mckenzie MD Referring Provider Dr. Jamie Castañeda MD Referring Provider [phone] Corbin Vidal DO Referring Provider Suzi, Corbin Primary Care Unavailable Adriel Alfredomarcia Attending Unavailable Melania Parker Attending Unavailable Suzi, Corbin Primary Care Unavailable Faizan Mckenzie Attending Unavailable Melania Parker Admitting Unavailable Parker, Melania Consulting Unavailable Suzi, Corbin Primary Care Unavailable Faizan Mckenzie Consulting Unavailable Suzi, Corbin Primary Care Unavailable Stu Woo Attending Unavailable Taylor Sanz Referring Unavailable Pramirna, Jamie Attending Unavailable Suzi, Corbin Referring Unavailable Suzi, Corbin Primary Care Unavailable Prah, Jamie Attending Unavailable Suzi, Corbin Referring Unavailable Suzi, Corbin Primary Care Unavailable Suzi, Corbin Primary Care Unavailable Taylor Sanz Attending Unavailable Maddy, Jamie Attending Unavailable Pramirna, Jamie Referring Unavailable Suzi, Corbin Primary Care Unavailable Faizan Mckenzie Attending Unavailable Keith, Melania Admitting Unavailable Parker, Melania Consulting Unavailable Suzi, Corbin Primary Care Unavailable ANASTACIO CISNEROS Admitting Unavailabl e BRANDSTETTER, ANASTACIO Attending Unavailabl e BRANDSTETTER, ANASTACIO Referring Unavailabl e MOSELEY, HARRISON Primary Care Unavailable [facility]STACIO PARK [facility] Unav ailable BRANDSTNUR, ANASTACIO Attending Unavailabl e BRANDSTETTER, ANASTACIO Referring Unavailabl e MOSELEY, HARRISON Primary Care Unavailable BRANDSTETTER, ANASTACIO Attending Unavailabl e MOSELEY, HARRISON Primary Care Unavailable Medications Current Medications Medication Drug Class(es) Dates Sig (Normalized) Sig (Original) amLODIPine 5 mg oral tablet (13 sources) Dihydropyridine Calcium Channel Samy Start: 10-09-2024 take 1 tablet by mouth once daily amLODIPine (NORVASC) 5 mg tablet Take 1 tablet by mouth once daily. 10/09/2024 Active apixaban 5 mg oral tablet (14 sources) Factor Xa Inhibitor Start: 02-01-2025 take 1 tablet by mouth twice daily Apixaban (Eliquis) 5 mg tablet Active 5 mg PO TWICE A DAY February 01, 2025 12:00am Start: 01-12-2025 take 1 tablet by tutu th every twelve hours ELIQUIS 5 mg tab(s) Take 1 tablet by mouth every 12 hours. Patient should start on January 12, 2025. 01/12/2025 Active Start: 12-07-2024 take 1 tablet by tutu th every twelve hours ELIQUIS 5 mg tab(s) Take 1 tablet by mouth every 12 hours. 12/07/2024 Active Start: 11-17-2024 End: 02-01-2025 take 1 tablet by mouth once Apixaban (Eliquis Dvt-Pe T reat 30d Start) 5 mg (74 tabs) tablets,dose pack Discontinued 0 PO .COMPLEX 74 November 17, 2024 12:00am February 01, 2025 3:00pm orally per package directions fenofibrate 160 mg oral tablet (5 sources) Peroxisome Proliferator Receptor alpha Agonist Start: 11-16-2024 take 1 tablet by mouth once daily Fenofibrate 160 mg tablet Active 160 mg PO DAILY November 16, 2024 12:00am take 1 tablet by mouth once matthew y fenofibrate nanocrystallized (TRICOR) 48 mg tablet Take 48 mg by mouth once daily. Pt unsure of dose Active losartan potassium 50 mg oral tablet (18 sources) Angiotensin 2 Receptor Samy Start: 10-09-2024 take 1 tablet by mouth once daily losartan (COZAAR) 50 mg tablet Take 1 tablet by mouth once daily. 10/09/2024 Active Start: 08-25-2016 End: 11-16-2024 take 1 tablet by mouth once daily Losartan 25 MG tablet Discontinued 25 mg PO DAILY August 25, 2016 1:00am November 16, 2024 4:36pm polyethylene glycol 3350 [id number] mg / potassium chloride 2970 mg / sodium bicarbonate 6740 mg / sodium chloride 5860 mg / sodium sulfate 25961 mg powder for oral solution (3 sources) Osmotic Laxative Start: 01-03-2025 End: 01-03-2025 peg 3350-Electrolytes (GOLYTELY) 236-22.74-6.74 -5.86 gram suspension Indications: Diverticulitis Take 4,000 mL by mouth one time only for 1 dose. Refer to printed prep instructions from your provider. 4000 mL 01/03/2025 01/03/2025 Active Polyethylene Glycols (8 sources) polyethylene gly col 3350 (MIRALAX ORAL) Take by mouth as needed. Active polyethylene gly col 3350 (MIRALAX ORAL) Take by mouth. Active pravastatin sodium 40 mg oral tablet (18 sources) HMG-CoA Reductase Inhibitor Start: 10-09-2024 take 1 tablet by mouth once daily at bedtime pravastatin (PRAVACHOL) 40 mg tablet Take 40 mg by mouth daily at bedtime. 10/09/2024 Active Start: 08-25-2016 End: 11-16-2024 take 1 tablet by mouth at bedtime Pravastatin 20 MG tablet Discontinued 20 mg PO AT BEDTIME August 25, 2016 1:00am November 16, 2024 4:37pm Completed/Discontinued Medications Medication Drug Class(es) Dates Sig (Normalized) Sig (Original) calcium chloride 0.0014 meq/ml / potassium chloride 0.004 meq/ml / sodium chloride 0.103 meq/ml / sodium lactate 0.028 meq/ml injectable solution (1 source) Start: 04-16-2025 End: 04-16-2025 take 30 mL intravenously every hour 30 mL/hr, INTRAVENOUS, CONTINUOUS, Starting on Wed04/16/25 at 0930, Until Wed04/16/25 at 1138, Preprocedure Problems Active Problems Problem Classification Problem Date Documented Da te Episodic/Chronic Complications of surgical procedures or medical care (8 sources) Colostomy malfunction; Translations: [Colostomy malfunction] Onset: 01-10-2025 12-29-2024 Chronic Disorders of lipid metabolism (14 sources) Hyperlipidemia; Translations: [Hyperlipidemia, unspecified] Onset: 11-17-2024 11-16-2024 Chronic Diverticulosis and diverticulitis (4 sources) Diverticulitis; Translations: [Diverticulitis of intestine, part unspecified, without perforation or abscess without bleeding] Onset: 01-03-2025 01-03-2025 Chronic Essential hypertension (14 sources) Hypertensive disorder; Translations: [Essential (primary) hypertension] Onset: 11-17-2024 11-16-2024 Chronic Other gastrointestinal disorders (15 sources) Colostomy present; Translations: [Colostomy status] Onset: 01-10-2025 11-16-2024 Chronic Other gastrointestinal disorders (2 sources) Colostomy status; Translations: [Colostomy status] Onset: 11-17-2024 Chronic Other gastrointestinal disorders (1 source) Encounter for attention to colostomy; Translations: [Attention to colostomy (HCC)] Onset: 01-10-2025 Chronic Other nutritional; endocrine; and metabolic disorders (9 sources) Obese class I; Translations: [Obesity, Class I, BMI 30-34.9] Onset: 01-03-2025 01-03-2025 Chronic Other screening for suspected conditions (not mental disorders or infectious disease) (4 sources) Patient encounter status; Translations: [Encounter for screening for malignant neoplasm of colon] Onset: 04-16-2025 02-02-2025 Episodic Phlebitis; thrombophlebitis and thromboembolism (3 sources) Personal history of other venous thrombosis and embolism; Translations: [H/O: Deep vein thrombosis] Onset: 04-16-2025 04-16-2025 Episodic Pulmonary heart disease (15 sources) Pulmonary embolism; Translations: [Other pulmonary embolism without acute cor pulmonale] Onset: 02-15-2025 11-16-2024 Episodic Comment on above: Provoked, had Bilate ral lung involvement.Discussed Provoked PE, bilateral lung disease, Provoked, had Bilate ral lung involvement.Discussed Provoked PE, bilateral lung disease, patient wants to stop after 3 months.D-dimers are normal. Unclassified (1 source) Obesity, Class I, BMI 30-34.9; Translations: [Obesity, Class I, BMI 30-34.9] Onset: 01-03-2025 Past or Other Problems Problem Classification Problem Date Documented Da te Episodic/Chronic Unclassified (2 sources) Patient encounter status 02-02-2025 Results Test Name Value Interpretation Reference Range Facility ANES POSTPROC EVALon 025 ANES POSTPROC EVAL HNO ID: [id number] Author: JANESSA MCKEE MD Service: Anesthesiology Author Type: Anesthesiologist Type: Anesthesia Postprocedure Evaluation Filed: 04/16/2025 10:57 Note Text: POST ANESTHESIA EVALUATION NOTE : 1960 Procedure Summary Date: 04/16/25 Room / Location: [facility] Anesthesia Start: 1012 Anesthesia Stop: 1045 Procedure: COLONOSCOPY SCREENING Diagnosis: Colon cancer screening (Screening for colorectal malignant neoplasm) Scheduled Providers: Anastacio Cisneros MD Responsible Provider: Janessa Mckee MD Anesthesia Type: MAC ASA Status: 2 Anesthesia Type: MAC Last Vitals Vitals Value Taken Time BP 111/68 04/16/25 10:45 Temp 36.5 ?C (97.7 ?F) 04/16/25 10:45 Pulse 59 04/16/25 10:57 Resp 19 04/16/25 10:57 SpO2 98 % 04/16/25 10:57 Vitals shown include unfiled device data. Post Anesthesia Patient Status Patient Evaluation: bedside. Neurological Status: aware and responsive. Pulmonary Status: breathing comfortably on room air Airway Control: returned to baseline unsupported. Cardiovascular Status: stable. Pain Management: clinically adequate Postoperative Hydration: acceptable. Intraoperative Events: no significant anesthesia events Post Operative Nausea/Vomiting Status: no significant post operative nausea or vomiting Recommendation: continue current plan of care. Anesthesia Observations No Documentation SIGNATURE: Janessa Mckee MD PATIENT NAME: Reina Malloy DATE: April 16, 2025 TIME: 10:57 AM CSN: [id number] [facility] ANES PRE-OPon 04-16-2025 ANES PRE-OP HNO ID: [id number] Author: JANESSA MCKEE MD Service: Anesthesiology Author Type: Anesthesiologist Type: Anesthesia Preprocedure Evaluation Filed: 04/16/2025 09:49 Note Text: ANESTHESIOLOGY DAY OF SURGERY NOTE : 1960 Procedure Information Date/Time: 04/16/25929 Scheduled providers: Anastacio Cisneros MD Procedure: COLONOSCOPY SCREENING Location: [facility] Estimated body mass index is 34.37 kg/m? as calculated from the following: Height as of 01/31/25: 160 cm (5' 3). Weight as of 01/31/25: 88 kg (194 lb). Most recent hematocrit and potassium results: Hematocrit 32.9 01/11/2025 Potassium 3.8 01/11/2025 Hx of provoked DVT - off of eliquis now HTN - on amlodipine and losartan (last took both yesterday). Relevant Problems CARDIO (+) HTN (hypertension) Cardiovascular (+) HLD (hyperlipidemia) Other (+) Obesity, Class I, BMI 30-34.9 I - PHYSICAL EVALUATION AIRWAY Patient intubated: No. Tracheostomy tube not present Mallampati: II. TM distance: >3 FB. Neck ROM: full ROM without neurological symptoms. Mouth opening: adequate. Short neck: no. Thick neck: no DENTAL Dentures, upper: complete. Dentures, lower: complete. II - ANESTHESIA PLAN ASA Score: 2 Anesthetic Plan: MAC NPO Status: adequate Beta Samy Monitoring Plan Monitoring plan: standard ASA. Post Procedure Analgesic Plan Postoperative analgesic plan: multimodal analgesia. Informed Consent Anesthetic risks, benefits, alternatives, personnel and consent discussed: yes. Patient / Responsible [employer] Party agrees to proceed: yes Patient / Surrogate agrees to blood products: blood products not planned Potential Anesthesia issues that may suggest increased risk of complications or contraindication to planned procedure: none. No vitals data found for the desired time range. Outpatient Medications as of 04/16/2025 Medication Sig amLODIPine (NORVASC) 5 mg tablet Take 1 tablet by mouth once daily. ELIQUIS 5 mg tab(s) Take 1 tablet by mouth every 12 hours. Patient should start on January 12, 2025. losartan (COZAAR) 50 mg tablet Take 1 tablet by mouth once daily. pravastatin (PRAVACHOL) 40 mg tablet Take 40 mg by mouth daily at bedtime. polyethylene glycol 3350 (MIRALAX ORAL) Take by mouth as needed. No current facility-administered medications on file as of 04/16/2025. I have interviewed and examined the patient. I have reviewed the medical record and/or the pre-anesthesia evaluation, pertinent labs, and test results. This contains updated information obtained within 48 hours of Surgery/Procedure. SIGNATURE: Janessa Mckee MD PATIENT NAME: Reina Malloy DATE: April 16, 2025 TIME: 9:02 AM CSN: [id number] Normal [facility] Colonoscopyon 04-16-2025 Colonoscopy [facility] Gastrointestinal Endoscopy Patient Name: Reina Malloy Procedure Date: 04/16/2025 10:00 AM Date of : 1960 Admit Type: Outpatient Room: [place] [address] Gender: Female Note Status: Finalized Attending MD: Anastacio Cisneros MD, [id number] Procedure: Colonoscopy Indications: Screening for colorectal malignant neoplasm Providers: Anastacio Cisenros MD Patient Profile: This is a 64 year old female. Refer to note in patient chart for documentation of history and physical. Last Colonoscopy: none. The patient's first colonoscopy is today. Referring Physician: Anastacio Cisneros MD (Referring MD) Medicines: Monitored Anesthesia Care Complications: No immediate complications. Procedure: Pre-Anesthesia Assessment: - Prior to the procedure, a History and Physical was performed, and patient medications and allergies were reviewed. The patient's tolerance of previous anesthesia was also reviewed. The risks and benefits of the procedure and the sedation options and risks were discussed with the patient. All questions were answered, and informed consent was obtained. Prior Anticoagulants: The patient has taken Eliquis (apixaban), last dose was 2 days prior to procedure. ASA Grade Assessment: I - A normal, healthy patient. After reviewing the risks and benefits, the patient was deemed in satisfactory condition to undergo the procedure. After I obtained informed consent, the scope was passed under direct vision. Throughout the procedure, the patient's blood pressure, pulse, and oxygen saturations were monitored continuously. The Colonoscope was introduced through the anus and advanced to the end of the rebeka's pouch at 22 cm. After careful withdrawal with retroflexion, it was inserted in the descending colostomy and advanced to the terminal ileum, with identification of the appendiceal orifice and IC valve. I was present and participated during the entire procedure, including non-weldon portions, and during the administration and monitoring of Moderate Sedation. The colonoscopy was performed without difficulty. The patient tolerated the procedure well. The patient tolerated the procedure well. The terminal ileum, ileocecal valve, appendiceal orifice, and rectum were photographed. The quality of the bowel preparation was good. Scope Withdrawal Time: 0 hours 8 minutes 18 seconds Moderate Sedation: Exam was performed under monitored anesthesia care (MAC) Findings: The perianal and digital rectal examinations were normal. The entire examined colon appeared normal on direct and retroflexion views. Estimated Blood Loss: Estimated blood loss: none. Impression: - The entire examined colon is normal on direct and retroflexion views. - No specimens collected. Recommendation: - Discharge patient to home. - Resume previous diet. - Continue present medications. - Repeat colonoscopy in 10 years for surveillance. - Patient has a contact number available for emergencies. The signs and symptoms of potential delayed complications were discussed with the patient. Return to normal activities tomorrow. Written discharge instructions were provided to the patient. - Resume Eliquis (apixaban) at prior dose tomorrow. Procedure Code(s): --- Professional --- 56119, Colonoscopy, flexible; diagnostic, including collection of specimen(s) by brushing or washing, when performed (separate procedure) --- Technical --- 75948, Colonoscopy, flexible; diagnostic, including collection of specimen(s) by brushing or washing, when performed (separate procedure) Diagnosis Code(s): --- Professional --- Z12.11, Encounter for screening for malignant neoplasm of colon --- Technical --- Z12.11, Encounter for screening for malignant neoplasm of colon CPT copyright 2020 [employer]. All rights reserved. The codes documented in this report are preliminary and upon admissions manager review may be revised to meet current compliance requirements. Attending Participation: I personally performed the entire procedure. Scope In: 10:19:08 AM Scope Out: 10:38:59 AM MD Anastacio Brown MD 04/16/2025 10:55:44 AM This report has been signed electronically by Anastacio Cisneros MD Number of Addenda: 0 Note Initiated On: 04/16/2025 10:00 AM Normal [facility] Colonoscopy Study observatio non 04-16-2025 [facility] Gastrointestinal Endoscopy Patient Name: Reina Malloy Procedure Date: 04/16/2025 10:00 AM Date of : 1960 Admit Type: Outpatient Room: [place] [address] Gender: Female Note Status: Finalized Attending MD: Anastacio Cisneros MD, [id number] Procedure: Colonoscopy Indications: Screening for colorectal malignant neoplasm Providers: Anastacio Cisneros MD Patient Profile: This is a 64 year old female. Refer to note in patient chart for documentation of history and physical. Last Colonoscopy: none. The patient's first colonoscopy is today. Referring Physician: Anastacio Cisneros MD (Referring MD) Medicines: Monitored Anesthesia Care Complications: No immediate complications. Procedure: Pre-Anesthesia Assessment: - Prior to the procedure, a History and Physical was performed, and patient medications and allergies were reviewed. The patient's tolerance of previous anesthesia was also reviewed. The risks and benefits of the procedure and the sedation options and risks were discussed with the patient. All questions were answered, and informed consent was obtained. Prior Anticoagulants: The patient has taken Eliquis (apixaban), last dose was 2 days prior to procedure. ASA Grade Assessment: I - A normal, healthy patient. After reviewing the risks and benefits, the patient was deemed in satisfactory condition to undergo the procedure. After I obtained informed consent, the scope was passed under direct vision. Throughout the procedure, the patient's blood pressure, pulse, and oxygen saturations were monitored continuously. The Colonoscope was introduced through the anus and advanced to the end of the rebeka's pouch at 22 cm. After careful withdrawal with retroflexion, it was inserted in the descending colostomy and advanced to the terminal ileum, with identification of the appendiceal orifice and IC valve. I was present and participated during the entire procedure, including non-weldon portions, and during the administration and monitoring of Moderate Sedation. The colonoscopy was performed without difficulty. The patient tolerated the procedure well. The patient tolerated the procedure well. The terminal ileum, ileocecal valve, appendiceal orifice, and rectum were photographed. The quality of the bowel preparation was good. Scope Withdrawal Time: 0 hours 8 minutes 18 seconds Moderate Sedation: Exam was performed under monitored anesthesia care (MAC) Findings: The perianal and digital rectal examinations were normal. The entire examined colon appeared normal on direct and retroflexion views. Estimated Blood Loss: Estimated blood loss: none. Impression: - The entire examined colon is normal on direct and retroflexion views. - No specimens collected. Recommendation: - Discharge patient to home. - Resume previous diet. - Continue present medications. - Repeat colonoscopy in 10 years for surveillance. - Patient has a contact number available for emergencies. The signs and symptoms of potential delayed complications were discussed with the patient. Return to normal activities tomorrow. Written discharge instructions were provided to the patient. - Resume Eliquis (apixaban) at prior dose tomorrow. Procedure Code(s): --- Professional --- 42907, Colonoscopy, flexible; diagnostic, including collection of specimen(s) by brushing or washing, when performed (separate procedure) --- Technic (more content not included)... [employer]OVATION [facility] Radiology Study observation (narrative) [facility] HISTORY PHYSICALon HISTORY PHYSICAL HNO ID: [id number] Author: DEYANIRA HUBER APRN.DIRECT MAIL COORDINATOR Service: ? Author Type: Nurse Practitioner Type: H&P Filed: 04/16/2025 09:13 Note Text: HISTORY AND PHYSICAL EXAMINATION SERVICE DATE: 04/16/2025 SERVICE TIME: 8:31 AM PRIMARY CARE PHYSICIAN: Harrison Moseley MD REASON FOR VISIT: Reina Malloy is a 64 year old female who is scheduled for colonoscopy at the request of Dr. Cisneros for routine HANDP. The reason for this visit is to perform a comprehensive review of the patient's past medical history, assess their current health status and obtain any additional testing required based on anesthesia guidelines. We will also identify any potential anesthesia problems or contraindications to the planned procedure. The patient has the following: ACTIVE PROBLEM LIST Obesity, Class I, Bmi 30-34.9 Colostomy Stenosis (Hcc) Attention to Colostomy (Hcc) Preop Examination Htn (Hypertension) Hld (Hyperlipidemia) History of Dvt (Deep Vein Thrombosis) Colon Cancer Screening Subjective CHIEF COMPLAINT: screening for colorectal cancer HPI: Patient is a 64 year old female who presents to [facility] for the above procedure. Pt has a history of diverticulitis with perforation, sigmoid colectomy with colostomy. This is her first colonoscopy. Denies family history of colon cancer. No issues with colostomy. Denies abdominal pain, Nausea, vomiting, constipation, diarrhea, hemtochezia at this time. Patient agrees to proceed with procedure. PAST MEDICAL HISTORY Diagnosis Date Diverticulitis 11/2024 w/ perforation requiring simoid colectomy DVT (deep venous thrombosis) (HCC) after surgery and travel 12/2024 HLD (hyperlipidemia) HTN (hypertension) Known medical problems 10/2024 blood clot in lung, started on eliquis per pt PAST SURGICAL HISTORY Procedure Laterality Date COLOSTOMY 10/28/2024 [place] No family history on file. SOCIAL HISTORY: SOCIAL HISTORY[1] Prior to Admission medications as of 04/16/25 0904 Medication Sig Last Dose Taking fenofibrate nanocrystallized (TRICOR) 48 mg tablet Take 48 mg by mouth once daily. Pt unsure of dose 04/15/2025 Evening Yes amLODIPine (NORVASC) 5 mg tablet Take 1 tablet by mouth once daily. 04/15/2025 Evening Yes losartan (COZAAR) 50 mg tablet Take 1 tablet by mouth once daily. 04/15/2025 Morning Yes pravastatin (PRAVACHOL) 40 mg tablet Take 40 mg by mouth daily at bedtime. 04/15/2025 Evening Yes ELIQUIS 5 mg tab(s) Take 1 tablet by mouth every 12 hours. Patient should start on January 12, 2025. polyethylene glycol 3350 (MIRALAX ORAL) Take by mouth as needed. No medication comments found. ALLERGIES No Known Allergies REVIEW OF SYSTEMS: PAIN ASSESSMENT: Pain Pain Assessment: Assessment Tool: Verbal (Numeric Rating or Visual Analog Scale) General: Denies fever, chills, and unexpected weight change. Neuro: Denies dizziness and headaches. Respiratory: Denies SOB or productive cough Cardiovascular: Denies CP and palpitations. +HTN, +HLD GI: see HPI : Denies dysuria. Endocrine: No history of diabetes or thyroid conditions. Hematology: Denies history of bleeding or clotting disorder. No known autoimmune disorders H/O DVT Musculoskeletal: Denies joint pain and swelling. Skin: Denies open sores and rashes. Objective PHYSICAL EXAM: VITALS: BP 124/70 Pulse 63 Temp (Src) 98.4 (Temporal) Resp 15 SpO2 96% O2 Therapy: Room Air General: NAD. Cooperative. Skin: Skin is warm, no rashes, and no open sores. HEENT: Normocephalic. Cardiovascular: Normal S1 AND S2. RRR, No murmur. Lungs: CTA Bilaterally. No respiratory distress. Abdomen: Soft, nontender, non-distended. Bowel sounds normal in all four quadrants. Extremities: No edema. Neurological: Alert and oriented to person, place, and time. Pulses: radial pulses +2 Diagnostic tests reviewed for today's visit: Lab Value Units Date High Low HB 11.4 g/dL 01/11/2025 15.5 11.5 HCT 32.9 % 01/11/2025 46.0 36.0 WBC 8.70 k/uL 01/11/2025 11.00 3.70 PLT 271 k/uL 01/11/2025 400 150 NA 140 mmol/L 01/11/2025 144 136 K 3.8 mmol/L 01/11/2025 5.1 3.7 GLUC 167 mg/dL 01/11/2025 99 74 BUN 14 mg/dL 01/11/2025 21 7 CREAT 0.60 mg/dL 01/11/2025 0.96 0.58 PTSEC No results within date range. INR No results within date range. APTT No results within date range. ALT No results within date range. AST No results within date range. TBILI No results within date range. TSH No results within date range. Lab Value Units Date High Low HCGQT No results within date range. UHCG No results within date range. HCG, BODY* No results within date range. Lab Value Units Date High Low ABORHD No results within date range. ABSCREEN No results within date range. Assessment/Plan ANESTHESIA FINDINGS: Significant Anesthesia Considerations: None Patient has the following medical conditions which may affect adria-operative course Problem List Items Addressed This Visit Car (more content not included)... Normal [facility] Oncology Visit Reporton 01-22 Oncology Visit Report [facility] [address] [place] [address] OFFICE VISIT Date of Service: 02/15/25 1246 MR#: [id number] Acct: [id number] Name: REINA MALLOY Rep #: [id number] : 1960 From: Jamie Castañeda MD Age/Sex: 64/F Location: [facility] Status: Signed HPI Subjective Date of Service 02/15/25 Chief Complaint F/u for PE. History of Present Illness 64y.o.woman had colostomy done on 10/28/2024 in [place] for perforated bowel. She returned to [place], developed difficulty breathing and chest pain on 11/16/2024. CTA showed bilateral pulmonary emboli with consolidation in the lower lobes. She was started on IV heparin and then changed to Eliquis 5 mg twice daily. She came to the clinic to assess if she should continue Eliquis beyond 3 months. Had D-dimers done and comes for follow up. She feels well, denies shortness of breath, weight loss fever or night sweats. Has no family history of clots. [facility] Medical History History of diverticulitis of colon Hyperlipidemia HTN (hypertension) Surgical History H/O section Colostomy in place Social History Smoking Status: Never smoker alcohol intake: never substance use type: does not use Intake Vital Signs 02/01/25 15:03 02/15/25 12:46 Height 5 ft 4 in 5 ft 4 in Weight: 90.775 kg BMI 34.3 BP 118/69 Blood Pressure Location Lt brachial Position Sitting Respiration 16 Pulse 77 Pulse Source Monitor Temp 96.9 F L Temperature Source Temporal Artery Pulse Oximetry (%) 97 Oxygen Delivery Method room air Intake Is patient in pain?: No Allergies No Known Allergies Allergy (Verified 02/15/25 12:50) Medications ???Medication ???Instructions ???Recorded ???Confirmed ???Type amlodipine 5 mg tablet 5 mg PO DAILY blood pressure 11/1602/15/25 History fenofibrate 160 mg tablet 160 mg PO DAILY cholesterol 02/15/25 History losartan 50 mg tablet 50 mg PO DAILY blood pressure 10/2202/15/25 History pravastatin 40 mg tablet 40 mg PO QHS cholesterol 11/16/24 02/15/25 History apixaban 5 mg tablet (Eliquis) 5 mg PO BID 02/01/25 02/15/25 Hist ory Central Venous Access Central Venous Access: No Laboratory Tests 02/01/25 15:44 D-Dimer Quant (PE/DVT) 0.27 Exam Physical Exam Const alert, oriented x3, no apparent distress and average body habitus Coding Level of Care Code Off vis,est,level 3 Exam Problem Focused Diagnoses Bilateral pulmonary embolism I26.99 Assessment and Plan Assessment and Plan (1) Bilateral pulmonary embolism: Status: Chronic Comment: Provoked, had Bilateral lung involvement. Discussed Provoked PE, bilateral lung disease, patient wants to stop after 3 months. D-dimers are normal. Plan: To change to Prophylactic Dose of Eliquis 2.5mg bid. Follow up with PCP. 02/15/25 2125 Date Jamie Liang Signature: Date (if applicable) CC: Dr. Corbin Vidal, DO [facility] 02-02-2025 [facility] Telephone (AGGENS3) REINA MALLOY ([id number]) 1960 F Date Time Provider Department 02/02/25 ANASTACIO CISNEROS During your visit today, we recorded the following information about you: Charity Schaefer 02/02/2025 11:30 AM Signed Surgery Checklist Type: COLONOSCOPY Admission Type: outpatient Anesthesia: MAC Date: 04/16/25 Arrival Time: 9:00 AM Surgery Time: 10:00 AM Location: [facility] Colonoscopy Prep mailed to the patient. Charity Schaefer Allergies As of Date: 02/02/2025 (No Known Allergies) Date Reviewed: 01/31/2025 Reviewed by: Anastacio Cisneros MD - Fully Assessed Reason for Visit: Procedure [88] Cmt: COLONOSCOPY Prescriptions as of 02/06/2025 - ELIQUIS 5 mg tab(s) Take 1 tablet by mouth every 12 hours. Patient should start on January 12, 2025. - amLODIPine (NORVASC) 5 mg tablet Take 1 tablet by mouth once daily. - losartan (COZAAR) 50 mg tablet Take 1 tablet by mouth once daily. - pravastatin (PRAVACHOL) 40 mg tablet Take 40 mg by mouth daily at bedtime. - polyethylene glycol 3350 (MIRALAX ORAL) Take by mouth as needed. 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 Performed By: #### L 300.8000 #### [facility] [address] [place], [address] Oncology Visit Reporton 01-21 Oncology Visit Report [facility] [address] [place] [address] OFFICE VISIT Date of Service: 02/01/25 1458 MR#: [id number] Acct: [id number] Name: REINA MALLOY Rep #: [id number] : 1960 From: Jamie Castañeda MD Age/Sex: 64/F Location: [facility] Status: Signed HPI Subjective Date of Service 02/01/25 Chief Complaint Referred for PE. History of Present Illness 64y.o.woman had colostomy done on 10/28/2024 in [place] for perforated bowel. She returned to [place], developed difficulty breathing and chest pain on 11/16/2024. CTA showed bilateral pulmonary emboli with consolidation in the lower lobes. She was started on IV heparin and then changed to Eliquis and now on 5 mg twice daily. She comes to the clinic today to assess if she should continue Eliquis beyond 3 months. She feels well, denies shortness of breath, weight loss fever or night sweats. Has no family history of clots. [facility] Medical History History of diverticulitis of colon Hyperlipidemia HTN (hypertension) Surgical History H/O section Colostomy in place Social History Smoking Status: Never smoker alcohol intake: never substance use type: does not use ROS Constitutional Constitutional: Reports systems reviewed and no addt'l complaints, except as documented Eyes Eyes: Reports systems reviewed and no addt'l complaints, except as documented ENT HEENT: Reports systems reviewed and no addt'l complaints, except as documented Cardiovascular Cardiovascular: Reports systems reviewed and no addt'l complaints, except as documented Respiratory/Chest Respiratory/Chest: Reports systems reviewed and no addt'l complaints, except as documented Gastrointestinal Gastrointestinal: Reports systems reviewed and no addt'l complaints, except as documented Genitourinary Genitourinary: Reports systems reviewed and no addt'l complaints, except as documented Musculoskeletal Musculoskeletal: Reports systems reviewed and no addt'l complaints, except as documented Integumentary Integumentary: Reports systems reviewed and no addt'l complaints, except as documented Neurologic Neurologic: Reports systems reviewed and no addt'l complaints, except as documented Psychiatric Psychiatric: Reports systems reviewed and no addt'l complaints, except as documented Endocrine Endocrinology: Reports systems reviewed and no addt'l complaints, except as documented Hematologic/Lymphatic Hematologic/Lymphatic : Reports systems reviewed and no addt'l complaints, except as documented Allergic/Immunologic Allergic/Immunologic: Reports systems reviewed and no addt'l complaints, except as documented Intake Vital Signs 11/16/24 17:59 12/29/24 09:24 02/01/25 14:58 02/01/25 15:03 Height 5 ft 4 in 5 ft 4 in 5 ft 4 in 5 ft 4 in Weight: 90.747 kg BMI 34.3 BP 105/66 Blood Pressure Location Lt brachial Position Sitting Respiration 18 Pulse 74 Pulse Source Monitor Temp 98.9 F Temperature Source Temporal Artery Pulse Oximetry (%) 97 Oxygen Delivery Method room air Intake Accompanied by: Is patient in pain?: No Allergies No Known Allergies Allergy (Verified 02/01/25 14:59) Medications ???Medication ???Instructions ???Recorded ???Confirmed ???Type amlodipine 5 mg tablet 5 mg PO DAILY blood pressure 11/1602/01/25 History fenofibrate 160 mg tablet 160 mg PO DAILY cholesterol 02/01/25 History losartan 50 mg tablet 50 mg PO DAILY blood pressure 10/2202/01/25 History pravastatin 40 mg tablet 40 mg PO QHS cholesterol 11/16/24 02/01/25 History apixaban 5 mg tablet (Eliquis) 5 mg PO BID 02/01/25 02/01/25 Hist ory Central Venous Access Central Venous Access: No Exam Physical Exam Const alert, oriented x3 and no apparent distress HEENT normocephalic, external ears normal and external nose normal Eyes PERRL, EOMs intact bilaterally and conjunctivae normal Neck supple Resp normal respiratory effort and clear to auscultation bilaterally Cardio regular rate, regular rhythm, S1 normal heart sound and S2 normal heart sound GI normal to inspection, nondistended, normoactive bowel sounds no CVA tenderness Back/Spine thoracic and lumbar spine normal to inspection Extremity no clubbing, cyanosis or edema Skin no rashes or lesions noted Neuro oriented x3, CN's II-XII intact bilaterally and moves all extremities Psych mental status grossly normal Coding Level of Care Code Off vis,new,level 3 Exam Problem Focused Diagnoses Bilateral pulmonary embolism I26.99 Assessment and Plan Assessment and Plan (1) Bilateral pulmonary embolis (more content not included)... [facility] (AGGENS3) REINA MALLOY ([id number]) 1960 F Date Time Provider Department 01/31/25 11:00 AM ANASTACIO CISNEROS3 During your visit today, we recorded the following information about you: Pulse Blood pressure Weight Height 64/minute 123/82 88 kg 1.6 m Anastacio Cisneros MD 01/31/2025 12:01 PM Signed Anastacio Cisneros M.D. Colon AND Rectal Surgery [address] [facility], [address] [place] [id number] SUBJECTIVE Reina Triston Mellissa is a 64 year old White female s/p colostomy revision HPI She is generally doing well noting that the ostomy is open like it was after the first surgery with good output. She still has some discomfort in the abdomen and going back and both flanks which is bothersome but not severe. She also describes some bleeding from the ostomy which has sometimes been a significant amount but is intermittent. She has not yet had a colonoscopy. Review of Systems Constitutional: Negative for chills and fever. HENT: Negative for congestion, ear pain, hearing loss, sinus pain and sore throat. Eyes: Negative for blurred vision, double vision and pain. Respiratory: Negative for cough, shortness of breath and wheezing. Cardiovascular: Negative for chest pain, palpitations and leg swelling. Gastrointestinal: Negative for abdominal pain, constipation, diarrhea, heartburn, nausea and vomiting. Genitourinary: Negative for dysuria, frequency and urgency. Musculoskeletal: Negative for back pain, joint pain and neck pain. Skin: Negative for itching and rash. Neurological: Negative for dizziness, weakness and headaches. Endo/Heme/Allergies: Negative for environmental allergies. Does not bruise/bleed easily. Psychiatric/Behaviora l: Negative for depression and memory loss. The patient is not nervous/anxious and does not have insomnia. PAST MEDICAL HISTORY Diagnosis Date Diverticulitis 11/2024 w/ perforation requiring simoid colectomy HLD (hyperlipidemia) HTN (hypertension) Known medical problems 10/2024 blood clot in lung, started on eliquis per pt PAST SURGICAL HISTORY Procedure Laterality Date COLOSTOMY 10/28/2024 [place] Social History Tobacco Use Smoking status: Former Types: Cigarettes Passive exposure: Past Smokeless tobacco: Never Substance Use Topics Alcohol use: Not Currently Drug use: Never No family history on file. The ROS, medical, surgical, family, and social history were reviewed by Anastacio Cisneros MD ALLERGIES No Known Allergies Current Outpatient Medications Medication Sig ELIQUIS 5 mg tab(s) Take 1 tablet by mouth every 12 hours. Patient should start on January 12, 2025. amLODIPine (NORVASC) 5 mg tablet Take 1 tablet by mouth once daily. losartan (COZAAR) 50 mg tablet Take 1 tablet by mouth once daily. pravastatin (PRAVACHOL) 40 mg tablet Take 40 mg by mouth daily at bedtime. polyethylene glycol 3350 (MIRALAX ORAL) Take by mouth as needed. No current facility-administered medications for this visit. OBJECTIVE BP 123/82 (BP Site: Right Arm, BP Cuff Size: Large Adult) Pulse 64 Ht 160 cm (5' 3) Wt 88 kg (194 lb) BMI 34.37 kg/m? BMI 34.37 kg/(m2) Physical Exam Constitutional: General: She is not in acute distress. Appearance: Normal appearance. She is not ill-appearing. Abdominal: General: There is no distension. Palpations: Abdomen is soft. Tenderness: There is no abdominal tenderness. Neurological: Mental Status: She is alert and oriented to person, place, and time. Psychiatric: Mood and Affect: Mood and affect normal. Judgment: Judgment normal. Hemoglobin (g/dL) Date Value 01/11/2025 11.4 Hematocrit (%) Date Value 01/11/2025 32.9 WBC (k/uL) Date Value 01/11/2025 8.70 Platelet Count (k/uL) Date Value 01/11/2025 271 Creatinine Date Value Ref Range Status 01/11/2025 0.60 0.58 - 0.96 mg/dL Final No results found for: AST No results found for: ALT WBC (k/uL) Date Value 01/11/2025 8.70 RBC (m/uL) Date Value 01/11/2025 3.65 (L) %DIG,%DBS Plan ASSESSMENT/PLAN: 1. Diverticulitis - ICD9: 562.11, ICD10: K57.92 She is doing well, no stenosis at this point and she does need a colonoscopy before she would have reversal surgery in the fall and would like to do this here so we will set this up in March. Risks, alternatives and benefits of the planned procedure were fully discussed with the patient. Risks include but are not limited to perforation, bleeding potentially requiring transfusion with inherent risks, enteric leak, and . Also discussed cardiovascular risks and pulmonary risks. The patient seems to understand and agrees to proceed. All questions answered. Informed consent obtained. Follow up: Return for Colonoscopy. Anastacio Cisneros M.D. Please Note: This office note has been created using Sjapper (more content not included)... Normal [facility] Basic metabolic 2000 panelon 01-11-2025 Anion gap [Moles/Vol] 12 mmol/L Normal 8-15 [facility] Comment on above: Order Comment: Speci men Type: BLOOD SPECIMEN Ordering Facility: [facility] Address: [address] [place] [address] Performed By: #### 2 4321-2 #### [facility] CLIA [id number] 1 [place] [address] [place] Calcium [Mass/Vol] 8.7 mg/dL Normal 8.5-10.2 [facility] Comment on above: Order Comment: Speci men Type: BLOOD SPECIMEN Ordering Facility: [facility] Address: [address] [place] [address] Performed By: #### 2 4321-2 #### [facility] CLIA [id number] [address] [place] Chloride [Moles/Vol] 108 mmol/L High 98-107 [facility] Comment on above: Order Comment: Speci men Type: BLOOD SPECIMEN Ordering Facility: [facility] Address: [address] [place] [address] Performed By: #### 2 4321-2 #### [facility] CLIA [id number] [address] [place] CO2 [Moles/Vol] 20 mmol/L Low 22-30 [facility] Comment on above: Order Comment: Speci men Type: BLOOD SPECIMEN Ordering Facility: [facility] Address: [address] [place] [address] Performed By: #### 2 4321-2 #### [facility] CLIA [id number] [address] [place] Creatinine [Mass/Vol] 0.60 mg/dL Normal 0.58-0.96 [facility] Comment on above: Order Comment: Speci men Type: BLOOD SPECIMEN Ordering Facility: [facility] Address: [address] [place] [address] Performed By: #### 2 4321-2 #### [facility] CLIA [id number] [address] [place] Creatinine and Glomerular filtration rate.predicted panel (S/P/Bld) 102 mL/min/1.73m??? Normal >=60 [facility] Comment on above: Order Comment: Speci men Type: BLOOD SPECIMEN Ordering Facility: [facility] Address: [address] [place] [address] Result Comment: Treasure mated Glomerular Filtration Rate (eGFR) is calculated using the 2020 CKD-EPI creatinine equation. This equation utilizes serum creatinine, sex, and age as parameters. The creatinine assay has traceable calibration to isotope dilution-mass spectrometry. Refer to KDIGO guidelines for clinical interpretation. In patients with unstable renal function, e.g. those with acute kidney injury, the eGFR may not accurately reflect actual GFR. Performed By: #### 2 4321-2 #### [facility] CLIA [id number] 1 [place] [address] [place] Glucose [Mass/Vol] 167 mg/dL High 74-99 [facility] Comment on above: Order Comment: Speci men Type: BLOOD SPECIMEN Ordering Facility: [facility] Address: [address] [place] [address] Result Comment: The Citizen [place] Diabetes Association (ADA) provides guidance for cutoff values for fasting glucose and random glucose. The ADA defines fasting as no caloric intake for at least 8 hours. Fasting plasma glucose results between 100 to 125 mg/dL indicate increased risk for diabetes (prediabetes). Fasting plasma glucose results greater than or equal to 126 mg/dL meet the criteria for diagnosis of diabetes. In the absence of unequivocal hyperglycemia, results should be confirmed by repeat testing. In a patient with classic symptoms of hyperglycemia or hyperglycemic crisis, random plasma glucose results greater than or equal to 200 mg/dL meet the criteria for diagnosis of diabetes. Reference: Standards of Medical Care in Diabetes 2016, Citizen [place] Diabetes Association. Diabetes Care. 2016.39(Suppl 1). Performed By: #### 2 4321-2 #### [facility] CLIA [id number] [address] [place] [address] [place] Potassium [Moles/Vol] 3.8 mmol/L Normal 3.7-5.1 [facility] Comment on above: Order Comment: Chrisi men Type: BLOOD SPECIMEN Ordering Facility: [facility] Address: [address] [place] [id number] Performed By: #### 2 4321-2 #### [facility] CLIA [id number] [address] [place] Sodium [Moles/Vol] 140 mmol/L Normal 136-144 [facility] Comment on above: Order Comment: Speci men Type: BLOOD SPECIMEN Ordering Facility: [facility] Address: [address] [place] [address] Performed By: #### 2 4321-2 #### [facility] CLIA [id number] [address] [place] [facility] Urea nitrogen [Mass/Vol] 14 mg/dL Normal 7-21 [facility] Comment on above: Order Comment: Speci men Type: BLOOD SPECIMEN Ordering Facility: [facility] Address: [address] [place] [address] Performed By: #### 2 4321-2 #### [facility] CLIA [id number] [address] CBC panel Auto (Bld)on 01-11 Erythrocyte distribution width (RBC) [Ratio] 12.7 % Normal 11.5-15.0 [facility] Comment on above: Order Comment: Speci men Type: BLOOD SPECIMEN Ordering Facility: [facility] Address: [address] [place] [address] Performed By: #### 5 8410-2 #### [facility] CLIA [id number] [address] Hematocrit (Bld) [Volume fraction] 32.9 % Low 36.0-46.0 [facility] Comment on above: Order Comment: Speci men Type: BLOOD SPECIMEN Ordering Facility: [facility] Address: [address] [place] [address] Performed By: #### 5 8410-2 #### [facility] CLIA [id number] [address] Hemoglobin (Bld) [Mass/Vol] 11.4 g/dL Low 11.5-15.5 [facility] Comment on above: Order Comment: Speci men Type: BLOOD SPECIMEN Ordering Facility: [facility] Address: [address] [place] [address] Performed By: #### 5 8410-2 #### [facility] CLIA [id number] [address] MCH (RBC) [Entitic mass] 31.2 pg Normal 26.0-34.0 [facility] Comment on above: Order Comment: Speci men Type: BLOOD SPECIMEN Ordering Facility: [facility] Address: [address] [place] [address] Performed By: #### 5 8410-2 #### [facility] CLIA [id number] [address] MCHC (RBC) [Mass/Vol] 34.7 g/dL Normal 30.5-36.0 [facility] Comment on above: Order Comment: Speci men Type: BLOOD SPECIMEN Ordering Facility: [facility] Address: [address] [place] [address] Performed By: #### 5 8410-2 #### [facility] CLIA [id number] [address] MCV (RBC) [Entitic vol] 90.1 fL Normal 80.0-100.0 [facility] Comment on above: Order Comment: Speci men Type: BLOOD SPECIMEN Ordering Facility: [facility] Address: [address] [place] [address] Performed By: #### 5 8410-2 #### [facility] CLIA [id number] [address] Nucleated RBC (Bld) [#/Vol] 10*3/uL Normal <0.01 [facility] Comment on above: Order Comment: Speci men Type: BLOOD SPECIMEN Ordering Facility: [facility] Address: [address] [place] [address] Performed By: #### 5 8410-2 #### [facility] CLIA [id number] [address] Platelet mean volume (Bld) [Entitic vol] 9.4 fL Normal 9.0-12.7 [facility] Comment on above: Order Comment: Speci men Type: BLOOD SPECIMEN Ordering Facility: [facility] Address: [address] [place] [address] Performed By: #### 5 8410-2 #### [facility] CLIA [id number] [address] Platelets (Bld) [#/Vol] 271 10*3/uL Normal 150-400 [facility] Comment on above: Order Comment: Speci men Type: BLOOD SPECIMEN Ordering Facility: [facility] Address: [address] [place] [address] Performed By: #### 5 8410-2 #### [facility] CLIA [id number] [address] RBC (Bld) [#/Vol] 3.65 10*6/uL Low 3.90-5.20 [facility] Comment on above: Order Comment: Speci men Type: BLOOD SPECIMEN Ordering Facility: [facility] Address: [address] [place] [address] Performed By: #### 5 8410-2 #### [facility] CLIA [id number] [address] WBC (Bld) [#/Vol] 8.70 10*3/uL Normal 3.70-11.00 [facility] Comment on above: Order Comment: Speci men Type: BLOOD SPECIMEN Ordering Facility: [facility] Address: [address] [place] [address] Performed By: #### 5 8410-2 #### [facility] CLIA [id number] [address] CNDSon 01-11-2025 [facility] HNO ID: [id number] Author: ANASTACIO CISNEROS MD Service: General Surgery Author Type: Resident Type: Discharge Summary Filed: 01/11/2025 11:12 Note Text: Attestation signed by Anastacio Cisneros MD at 01/11/2025 11:12 AM I reviewed resident's discharge summary note. I agree with his assessment, plan and recommendations unless otherwise noted. Anastacio Cisneros MD 11:12 AM 01/11/25 DISCHARGE SUMMARY PATIENT NAME: Reina Malloy Code Status: Not on file Highest Readmission Risk Score: 6 The 30 day readmissions risk score is derived from an internally validated risk model which evaluates patient level characteristics, utilization history, medication orders and lab results up until the day of discharge. Patients with a score of 39 or above are considered highest risk for readmission. Specific patient level drivers will be listed at the bottom of the summary. Activity When You Leave the Hospital Go home and rest. Resume normal activity after: 24 hrs May bathe and shower May use stairs No driving for: While on pain medications. No prolonged bedrest, longer than 8 hours in a 24 hour period No walking restrictions Diet Instructions After general anesthetic, your stomach may be sensitive. Begin slowly by drinking water, then clear liquids, and then a light meal Drink 6 to 8 glasses of fluids per day Resume your pre-hospital diet For Pain When You Leave the Hospital Continue taking previously prescribed pain medications as directed If you become constipated, you may use any frex-bza-ueozyjf treatment such as Milk of Magnesia, Sennakot, Prune Juice, Suppositories, etc. in addition to the stool softener/fiber supplement No alcohol or driving while on pain medication Some muscle ache can be expected for a day or two Use acetaminophen (Tylenol) as recommended on the bottle Use the dispensed medication (see prescription) You should use an uycs-scs-rcbygrz stool softener (Docusate sodium) and/or a fiber supplement (Metamucil, Fiber Con) every day while taking prescribed pain medication Call Your Doctor If There is severe pain at the operative site You have persistent nausea/vomiting over 24 hours You have persistent or heavy bleeding You have redness, swelling, pus or drainage from the wound Your temperature is greater than 101F Follow Up Appointments Follow-up Appointment When: In 2 weeks Patient/Parents to call for appointment?: Yes Anastacio Cisneros MD [phone] [address] PCP Requested Referral Additional Provider to Provider Information: No notes on file Exogenous Class 1 Obesity Treatment Team: Attending Provider: Anastacio Cisneros MD FINAL DIAGNOSIS: None Active Hospital Problems Diagnosis POA Attention to colostomy (HCC) Yes Colostomy stenosis (HCC) Unknown Obesity, Class I, BMI 30-34.9 Unknown Resolved Hospital Problems No resolved problems to display. Transitions of Care Critical Issues: None LABS AND PROCEDURES PENDING AT DISCHARGE: No pending results. FOLLOW-UP APPOINTMENTS ALREADY SCHEDULED WITH A [facility] PROVIDER: Future Appointments Date Time Provider Department Center 01/31/2025 11:00 AM Anastacio Cisneros MD AGGENS3 [facility] ALLERGIES No Known Allergies DISCHARGE MEDICATION: Medication List START taking these medications traMADol 50 mg tablet Commonly known as: ULTRAM Take 1 tablet by mouth every 8 hours as needed for pain for up to 3 days. CHANGE how you take these medications ELIQUIS 5 mg tab(s) Generic drug: apixaban Take 1 tablet by mouth every 12 hours. Patient should start on January 12, 2025. Start taking on: January 12, 2025 What changed: how much to take CONTINUE taking these medications amLODIPine 5 mg tablet Commonly known as: NORVASC losartan 50 mg tablet Commonly known as: COZAAR MIRALAX ORAL pravastatin 40 mg tablet Commonly known as: PRAVACHOL Where to Get Your Medications These medications were sent to [facility] [address] [place] [address] Hours: Wednesday-Wednesday, 8am-7pm, Wednesday 9am-1pm traMADol 50 mg tablet See progress note for physical exam The patient's risk for 30-day readmission is determined using the following contributing factors: Predictive Model Details 6% (Low) Factor Value Calculated 01/11/2025 05:21 -17% Diagnosis Count 3 [facility] READMISSION RISK Model -14% Admissions (365d) 1 -12% Hospital Unit [facility] GENERAL SURGERY -10% ED visits (365d) 0 -9% [facility] -9% RDW (Max) 12.7 9% Admission Provider Speciality GENERAL SURGERY -7% Observations (365d) 0 -7% Discharge Disposition HOME -7% ED Encounter No SIGNATURE: Yrn Tapia, DATE (more content not included)... 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 Requested new convex product for patient, [place] one piece with convexity #[id number]. [employer] requesting phone call from patient to verify and to be able to send the product to her. I spoke with Mrs. Malloy, asked her or her daughter to call [employer], she will today or tomorrow. [facility] CONSULT PROG HNO ID: [id number] Author: FLAQUITA BLACK RN Service: Ostomy Author Type: Registered Nurse Type: Consult Progress Note Filed: 01/11/2025 11:32 Note Text: Summary: lease picker consult, appliance change OSTOMY NURSE INITIAL CONSULT NOTE SERVICE DATE: 01/11/2025 SERVICE TIME: 09:19 AM Consultation requested by Dr. Kacie Cisneros for colostomy revision. Surgery: Colostomy creation , end Lind's procedure Date of Surgery: 10/28/2024 Surgeon: [facility] Surgery: Colostomy revision Date of Surgery: 01/10/2025 Surgeon: Dr. Kacie Cisneros Colostomy 01/10/25 LLQ (Active) Placement Date: 01/10/25 Location: LLQ Assessments 01/11/2025 9:35 AM Wound Image Stomal Appliance Other (Comment) Stomal Appliance Status Intact Stoma Construction End Stoma Color [place];Red Mucocutaneous Junction Sutures;Intact Stoma Appearance Moist Stoma Shape Oval Stoma Protrusion At Skin (Flush) Stoma Size 20 x 28 mm Lumen Location Central Peristomal Assessment Clean;Intact Peristomal Skin Plane Changes Firm abdomen Type of Effluent Minimal;Soft;Ribbon shaped Treatment Adhesive removed;Cleanse with water;Integrated convexity No associated orders. at the bedside. Stoma assessed, there was small amount ribbon shaped soft brown stool. Applied a [place] 2 1/4 convex wafer with a drainable pouch. OSTOMY CARE EDUCATION: Today's Teaching Consisted of: how to apply convexity and reason behind, discussed ostomy belt and provided patient with one if needed., Method of Instruction: Individual instruction Verbal instruction Demonstration/Hands on Learning Factors Affecting Learning: None Instruction Provided To: Patient and Spouse Patient and spouse report that they do have a few convex pouches at home. . [place] one piece with convexity, #0718 PLAN: Recommend discharge with home care for ostomy teaching needs: no. Thank you for including the ostomy service in the care of this patient. SIGNATURE: LEXI Camilo,RN,CWON PATIENT NAME: Reina Malloy DATE: January 11, 2025 TIME: 10:00 AM [facility] ANES POSTPROC EVALon 025 ANES POSTPROC EVAL HNO ID: [id number] Author: VINEET ELDER MD Service: Anesthesiology Author Type: Anesthesiologist Type: Anesthesia Postprocedure Evaluation Filed: 01/12/2025 07:15 Note Text: POST ANESTHESIA EVALUATION NOTE : 1960 Procedure Summary Date: 01/10/25 Room / Location: PA OR 03 / PA OR Anesthesia Start: 1418 Anesthesia Stop: 152 Procedure: REVISION COLOSTOMY, SIMPLE Diagnosis: Attention to colostomy (HCC) (Attention to colostomy (HCC) [Z43.3]) Surgeons: Anastacio Cisneros MD Responsible Provider: Vineet Elder MD Anesthesia Type: general ASA Status: 2 Anesthesia Type: general Airway Type: ETT Last Vitals Vitals Value Taken Time BP 111/72 01/10/25 1615 Temp 36.1 ?C (97 ?F) 01/10/25 1600 HR SpO2 65 01/10/25 1624 Resp 17 01/10/25 1624 SpO2 97 % 01/10/25 1624 Vitals shown include unfiled device data. Post Anesthesia Patient Status Patient Evaluation: PACU. PACU/ICU Patient Condition: stable. Anticipated Disposition: inpatient floor planned admission. Neurological Status: aware and responsive. Pulmonary Status: breathing comfortably on room air Airway Control: returned to baseline unsupported. Cardiovascular Status: stable. Pain Management: clinically adequate Postoperative Hydration: acceptable. Intraoperative Events: no significant anesthesia events Post Operative Nausea/Vomiting Status: no significant post operative nausea or vomiting Recommendation: continue current plan of care. Anesthesia Observations No Documentation SIGNATURE: Vineet Elder MD PATIENT NAME: Reina Malloy DATE: January 12, 2025 TIME: 7:14 AM CSN: [id number] [facility] ANES PRE-OPon 01-10-2025 ANES PRE-OP HNO ID: [id number] Author: VINEET ELDER MD Service: Anesthesiology Author Type: Anesthesiologist Type: Anesthesia Preprocedure Evaluation Filed: 01/10/2025 13:42 Note Text: ANESTHESIOLOGY DAY OF SURGERY NOTE : 1960 Procedure Information Date/Time: 01/10/25 1505 Procedure: COLOSTOMY REVISION SIMPLE Location: [place] OR 03 / [place] OR Surgeons: Anastacio Cisneros MD Estimated body mass index is 33.66 kg/m? as calculated from the following: Height as of 01/03/25: 160 cm (5' 3). Weight as of 01/03/25: 86.2 kg (190 lb). Most recent hematocrit and potassium results: No results found for this basename: HCT,HEMATOCRIT,K,POTA SSIUM Relevant Problems No relevant active problems H/o PE on eliquis, held today I - PHYSICAL EVALUATION AIRWAY Patient intubated: No. Tracheostomy tube not present Mallampati: II. TM distance: >3 FB. Neck ROM: full ROM without neurological symptoms. Mouth opening: adequate. Short neck: no. Thick neck: no DENTAL Dental findings: teeth intact. Additional exam findings: yes. CARDIOVASCULAR Rhythm: regular Rate: normal PULMONARY Breath sounds clear to auscultation. II - ANESTHESIA PLAN ASA Score: 2 Anesthetic Plan: general Airway type: LMA The patient is not a current smoker. NPO Status: adequate Beta Samy Monitoring Plan Monitoring plan: standard ASA. Post Procedure Analgesic Plan Postoperative analgesic plan: multimodal analgesia. Informed Consent Anesthetic risks, benefits, alternatives, personnel and consent discussed: yes. Patient / Responsible [employer] Party agrees to proceed: yes Patient / Surrogate agrees to blood products: blood products not planned Vitals Value Taken Time BP 134/85 01/10/25 1234 Pulse 68 01/10/25 1234 Resp 16 01/10/25 1234 Temp 36.2 ?C (97.2 ?F) 01/10/25 1234 SpO2 97 % 01/10/25 1234 Facility-Administered Medications as of 01/10/2025 Medication Dose Route Frequency lidocaine (PF) 10 mg/mL (1 %) 1-2 mg injection (XYLOCAINE) 0.1-0.2 mL INTRADERMAL PRN lactated ringers iv infusion 5-30 mL/hr INTRAVENOUS CONTINUOUS NaCl 0.9% iv flush bag 20 mL INTRAVENOUS PRN ceFAZolin iv piggyback 2 g in D5W (iso-osmotic) 100 mL (ANCEF) 2 g INTRAVENOUS Pre-Op Once Outpatient Medications as of 01/10/2025 Medication Sig amLODIPine (NORVASC) 5 mg tablet Take 1 tablet by mouth once daily. ELIQUIS 5 mg tab(s) Take 1 tablet by mouth every 12 hours. losartan (COZAAR) 50 mg tablet Take 1 tablet by mouth once daily. pravastatin (PRAVACHOL) 40 mg tablet Take 40 mg by mouth daily at bedtime. I have interviewed and examined the patient. I have reviewed the medical record and/or the pre-anesthesia evaluation, pertinent labs, and test results. This contains updated information obtained within 48 hours of Surgery/Procedure. SIGNATURE: Vineet Elder MD PATIENT NAME: Reina Malloy DATE: January 10, 2025 TIME: 1:03 PM CSN: [id number] [facility] HISTORY PHYSICALon HISTORY PHYSICAL HNO ID: [id number] Author: ANASTACIO CISNEROS MD Service: General Surgery Author Type: Resident Type: H&P Filed: 01/10/2025 14:24 Note Text: Attestation signed by Anastacio Cisneros MD at 01/10/2025 2:24 PM I personally saw and examined the patient on 01/10/2025. I reviewed the resident?s note. I agree with the resident?s assessment and plan unless otherwise noted Anastacio Cisneros MD 2:24 PM 01/10/25 Please Note: This office note has been created using Fanplayr, a speech recognition software program, and may contain errors including punctuation, grammar, spelling, gender, and inappropriate words or phrases that pertain to the sytem. UPDATED HISTORY AND PHYSICAL EXAMINATION SERVICE DATE: 01/10/2025 SERVICE TIME: 1:40 PM PHYSICAL EXAM MUST BE COMPLETED ON ADMISSION The History and Physical (completed in the past 30 days) has been reviewed and the patient has been examined. The contents accurately reflect the patient's condition with the following additions or revisions since the HANDP was completed. Examination indicates: No Changes This HANDP can be found in the Electronic Medical Record. SIGNATURE: Delta Arenas DO PATIENT NAME: Reina Malloy DATE: 01/10/2025 TIME: 1:40 PM [facility] OPERATIVE NOon 01-10-2025 OPERATIVE NO HNO ID: [id number] Author: ANASTACIO CISNEROS MD Service: General Surgery Author Type: Physician Type: Operative Report Filed: 01/10/2025 16:05 Note Text: DEPARTMENT OF SURGERY OPERATIVE NOTE Log ID: [id number] Surgery Date: 01/10/2025 Incision/Procedure Start Time: 2:35 PM Incision Close/Procedure End Time: 3:02 PM Surgeon(s) and Shipping Clerk/Admin(s): Surgeons and Role: * Anastacio Cisneros MD - Primary * Delta Arenas DO - Resident - Assisting Preoperative Diagnosis: Attention to colostomy (HCC) [Z43.3] Postoperative Diagnosis: Same PROCEDURE AND ANESTHESIA TYPE: Procedure(s) and Anesthesia Type: * COLOSTOMY REVISION- General EBL: 5 ml OPERATIVE INDICATIONS: The patient is a 64 year old female with a history of diverticulitis for which she underwent emergency surgery with an end colostomy. The stoma retracted and she has developed significant stenosis to the point that the narrowing is becoming obstructed. Since her surgery was relatively recently, we did not think it was best to go back in the abdomen yet but discussed revision of the skin aperture. A discussusion of the risks and benefits of surgery was undertaken, at the end of which the patient understood the benefits and risks, and desired to proceed. Findings: We had to remove a bit of scar and granulation tissue to get back to a healthy area of the bowel which was about half a centimeter below the skin surface. We freed the stoma up down to the fascia. We then reconnected the skin down to the stoma after excising the distal 0.5 cm of the colostomy. Description of Procedure: Patient was placed in supine . Timeout was completed x 2. The abdomen was prepped and draped in the usual fashion. We began by excising an area of skin about 3 mm outside of the stenotic skin hole from her colostomy. We excised down into the subcutaneous fat and continued freeing this down toward the fascia. Once we had freed this off all the way down, we were not able to pull it up anymore, but we were able to place a hemostat and and feel that this widened out about half a centimeter down. We came through the scar and: At this point about half a centimeter below the surface and carefully cut off the colostomy and circumferentially. This was passed off as colostomy. We then began to sew the skin in place, bringing the skin edge down to the bowel edge. This was done with 3-0 Vicryl sutures circumferentially and at the lateral aspect we used one 3-0 subcutaneous stitch narrow the aperture slightly. Once this was fully closed, we noted good hemostasis. We were able to place a pinky finger through the colon down to the level of the fascia. We then completed the case and placed a stoma appliance over the colostomy. All counts of sponges and instruments were correct x 2. The patient was taken to the recovery room in good condition. I/primary surgeon/proceduralist performed the procedure with assistance. Anastacio Cisneros MD January 10, 2025 3:47 PM [facility] Pathology biopsy report Parth (Tiss)on 01-10-2025 AP DISCLAIMER [facility] Comment on above: Order Comment: Speci men Type: TISSUE SPECIMENOrdering Facility: [facility] Address: [address] [place] [address] Result Comment: Dale horne Developed Test (LDT) Disclaimer: Performance characteristics of immunohistochemical, immunofluorescent, and chromogenic in-situ hybridization tests have been determined by the performing laboratory within [facility]'s Sarabjit Abreu Pathology and Laboratory Medicine Department ([facility], [facility], [facility], [facility], [facility], [facility], or [facility]) in a manner consistent with CLIA requirements. One or more of these tests may not have been cleared or approved by the FDA. [facility] is regulated under CLIA as qualified to perform high-complexity testing. These tests are used for clinical purposes. These should not be regarded as investigational or for research. Positive and negative controls stain appropriately. Performed By: #### 6 6121-5 ####[facility] LABORATORYCLIA [id number] [address] CASE REPORT [facility] Comment on above: Order Comment: Speci shellie Type: TISSUE SPECIMENOrdering Facility: [facility] Address: [address] [place] [address] Result Comment: Surg [facility] Pathology Report Case: [id number] Authorizing Provider: Anastacio Cisneros MD Collected: 01/10/2025 03:03 PM Ordering Location: [place] [facility] Received: 01/11/2025 07:19 AM Pathologist: Majo Yusuf MD Specimen: Colon, Colostomy Performed By: #### 6 6121-5 ####[facility] [id number] [address] CLINICAL HISTORY [facility] Comment on above: Order Comment: Speci shellie Type: TISSUE SPECIMENOrdering Facility: [facility] Address: [address] [place] [address] Result Comment: Pre- op diagnosis: Attention to colostomy (HCC) [Z43.3] Performed By: #### 6 6121-5 ####[facility] LABORATORYCLIA [id number] [address] FINAL DIAGNOSIS [facility] Comment on above: Order Comment: Specavery hensley Type: TISSUE SPECIMENOrdering Facility: [facility] Address: [address] [place] [address] Result Comment: Edmond stomy, revision: - Focally inflamed squamous epithelium with lymphoplasmacytic infiltrate and multinucleate giant cells in the fibroadipose tissue. at 1233 EDT Performed By: #### 6 6121-5 ####[facility] LABORATORYCLIA [id number] [address] FINAL PERFORMING LAB Normal [facility] Comment on above: Order Comment: Speci men Type: TISSUE SPECIMENOrdering Facility: [facility] Address: [address] [place] [address] Result Comment: Diag nostic interpretation performed at: [facility], [address] [place] [address] CLIA# [id number] Legal Department Manager: Al Jernigan MD Performed By: #### 6 6121-5 ####[facility] LABORATORYCLIA [id number] [address] GROSS DESCRIPTION [facility] Comment on above: Order Comment: Speci men Type: TISSUE SPECIMENOrdering Facility: [facility] Address: [address] [place] [address] Result Comment: Hi pretty, Colostomy Received in formalin labeled colostomy are 2 irregular fragments of mucosa covered cauterized tissue aggregating to 2.5 x 2 x 1 cm. [place] Turner sections are submitted in A1. Gross examination performed at [facility], [address] [place] [address] CLIA#[id number] OLS January 11, 2025 8:06 AM Performed By: #### 6 6121-5 ####[facility] LABORATORYCLIA [id number] [address] NURSING PROGon 01-09-2025 NURSING PROG HNO ID: [id number] Author: REUBEN BOOKER RN Service: Nursing Author Type: Registered Nurse Type: Nursing Progress Note Filed: 01/09/2025 09:40 Note Text: Pt has questions regarding eliquis usage prior to surgery and there is a medication listed on her sheet called lytes and she doesn't know what that is or what it is for. Transferred pt to surgeon's office to have questions answered. [facility] CNOVon 01-03-2025 CNOV Office Visit (AGGENS3) REINA MALLOY ([id number]) 1960 F Date Time Provider Department 01/03/25 11:15 AM ANASTACIO CISNEROS During your visit today, we recorded the following information about you: Pulse Blood pressure Weight Height 71/minute 106/67 86.2 kg 1.6 m Anastacio Cisneros MD 01/03/2025 12:21 PM Signed Anastacio Cisneros M.D. Colon AND Rectal Surgery [address] [facility], [address] [place] [address] SUBJECTIVE Reinapenny Malloy is a 64 year old White female s/p Lind's procedure for diverticulitis with colostomy stenosis HPI The patient was referred by [address] [address] for my consultation regarding colostomy stenosis. My final recommendations will be communicated back to the requesting physician by way of shared Medical record or letter to requesting physician via electronic or US mail. The patient is a pleasant 64-year-old female who in October was taking a vacation in [place] and developed her first ever episode of diverticulitis, presenting to the hospital with perforation and undergoing an emergent surgery which included sigmoid colectomy and creation of a colostomy. She denies any pain at this point and generally feels things healed well. Her stoma had been pretty functional but over the last few weeks she has noticed the aperture closing down significantly to the point that she is worried she will not be able to eat and drink. She has plans to go back for reversal surgery with her surgeon in May, trying to get to 6 months time point. She has never had a prior colonoscopy and there was discussion of getting this while she is home Review of Systems Constitutional: Negative for chills, fever and weight loss. HENT: Negative for congestion, ear pain, hearing loss, sinus pain and sore throat. Eyes: Negative for blurred vision, double vision and pain. Respiratory: Negative for cough, shortness of breath and wheezing. Cardiovascular: Negative for chest pain, palpitations and leg swelling. Gastrointestinal: Positive for constipation. Negative for abdominal pain, blood in stool, diarrhea, heartburn, nausea and vomiting. Genitourinary: Negative for dysuria, frequency and urgency. Musculoskeletal: Negative for back pain, joint pain and neck pain. Skin: Negative for itching and rash. Neurological: Positive for dizziness. Negative for weakness and headaches. Endo/Heme/Allergies: Negative for environmental allergies. Does not bruise/bleed easily. Psychiatric/Behaviora l: Negative for depression and memory loss. The patient is not nervous/anxious and does not have insomnia. No past medical history on file. PAST SURGICAL HISTORY Procedure Laterality Date COLOSTOMY 10/28/2024 [place] Social History Tobacco Use Smoking status: Former Types: Cigarettes Passive exposure: Past Smokeless tobacco: Never Substance Use Topics Alcohol use: Not Currently Drug use: Never No family history on file. The ROS, medical, surgical, family, and social history were reviewed by Anastacio Cisneros MD ALLERGIES Not on File Current Outpatient Medications Medication Sig amLODIPine (NORVASC) 5 mg tablet Take 1 tablet by mouth once daily. ELIQUIS 5 mg tab(s) Take 1 tablet by mouth every 12 hours. losartan (COZAAR) 50 mg tablet Take 1 tablet by mouth once daily. pravastatin (PRAVACHOL) 40 mg tablet Take 40 mg by mouth daily at bedtime. polyethylene glycol 3350 (MIRALAX ORAL) Take by mouth. peg 3350-Electrolytes (GOLYTELY) 236-22.74-6.74 -5.86 gram suspension Take 4,000 mL by mouth one time only for 1 dose. Refer to printed prep instructions from your provider. No current facility-administered medications for this visit. OBJECTIVE BP 106/67 (BP Site: Right Arm, BP Position: Sitting, BP Cuff Size: Regular Adult) Pulse 71 Ht 160 cm (5' 3) Wt 86.2 kg (190 lb) BMI 33.66 kg/m? BMI 33.66 kg/(m2) Physical Exam Constitutional: General: She is not in acute distress. Appearance: Normal appearance. She is not ill-appearing. Cardiovascular: Rate and Rhythm: Normal rate and regular rhythm. Heart sounds: Normal heart sounds. No murmur heard. No friction rub. No gallop. Pulmonary: Effort: Pulmonary effort is normal. No respiratory distress. Breath sounds: Normal breath sounds. No wheezing or rales. Abdominal: General: There is no distension. Palpations: Abdomen is soft. There is no hepatomegaly. Tenderness: There is no abdominal tenderness. Comments: Midline incision is well-healed. Her colostomy is in the left lower quadrant, with the aperture narrowed too small to accommodate a pinky finger, about 7 mm Musculoskeletal: General: No deformity. Normal range of motion. Skin: General: Skin is warm and dry. Findings: No rash. Neurological: Mental Status: She is alert. Co (more content not included)... Normal [facility] CNPN Telephone ([id number]) REINA MALLOY ([id number]) 1960 F Date Time Provider Department 01/03/25 ANASTACIO CISNEROS AGG3 During your visit today, we recorded the following information about you: Charity Schaefer 01/03/2025 3:32 PM Signed Surgery Checklist Type: COLOSTOMY REVISION SIMPLE Admission Type: inpatient Anesthesia: General Date: 01/10/25 Arrival Time: 1:00 PM Surgery Time: 3:00 PM Location: [facility] Surgery information given at appointment. Charity Schaefer Allergies As of Date: 01/03/2025 (Not on File) Date Reviewed: 01/03/2025 Reviewed by: Anastacio Cisneros MD - Fully Assessed Reason for Visit: Procedure [88] Cmt: COLOSTOMY REVISION SIMPLE Prescriptions as of 01/03/2025 - amLODIPine (NORVASC) 5 mg tablet Take 1 tablet by mouth once daily. - ELIQUIS 5 mg tab(s) Take 1 tablet by mouth every 12 hours. - losartan (COZAAR) 50 mg tablet Take 1 tablet by mouth once daily. - pravastatin (PRAVACHOL) 40 mg tablet Take 40 mg by mouth daily at bedtime. - polyethylene glycol 3350 (MIRALAX ORAL) Take by mouth. - peg 3350-Electrolytes (GOLYTELY) 236-22.74-6.74 -5.86 gram suspension Take 4,000 mL by mouth one time only for 1 dose. Refer to printed prep instructions from your provider. Problem List As Of Date: 01/03/2025 (None) Encounter Status:Closed by CHARITY SCHAEFER on 01/03/25 Normal [facility] Abdomen/Pelvis WITH Contrast on 12-29-2024 Abdomen/Pelvis WITH Contrast [facility] Imaging Services [address] [place], [place] [address] Abdomen/Pelvis WITH Contrast MR#: [id number] Acct: [id number] Name: REINA MALLOY Rep #: [id number] : 1960 F 64 From: Chris Solis MD PCP: Dr. Corbin Vidal, DO Status: REG ER Study: Abdomen/Pelvis WITH Contrast Date of Exam: 05/17 Exam# [id number] Ordering Dr: Taylor Sanz DO EXAM: CT Abdomen and Pelvis With Intravenous Contrast CLINICAL INDICATION: COLOSTOMY ABNORMALITY TECHNIQUE: Axial computed tomography images of the abdomen and pelvis with intravenous contrast. This CT exam was performed using one or more of the following dose reduction techniques: automated exposure control, adjustment of the mA and/or kV according to patient size, and/or use of iterative reconstruction technique. COMPARISON: No relevant prior studies available. FINDINGS: LUNG BASES: Left basilar atelectasis or scarring. ABDOMEN: LIVER: Hepatomegaly with fatty infiltration. GALLBLADDER AND BILE DUCTS: Cholelithiasis. No ductal dilation. PANCREAS: Unremarkable. No mass. No ductal dilation. SPLEEN: Unremarkable. No splenomegaly. ADRENALS: Unremarkable. No mass. KIDNEYS AND URETERS: Unremarkable. No solid mass. No hydronephrosis. STOMACH AND BOWEL: Fecal retention in the colon consistent with constipation. Left lower abdominal quadrant colostomy. No obstruction. No mucosal thickening. PELVIS: APPENDIX: No findings to suggest acute appendicitis. BLADDER: Unremarkable. No mass. REPRODUCTIVE: Unremarkable as visualized. ABDOMEN and PELVIS: INTRAPERITONEAL SPACE: Unremarkable. No free air. No significant fluid collection. BONES/JOINTS: No acute fracture. No dislocation. SOFT TISSUES: Umbilical hernia containing fat. VASCULATURE: Scattered calcified atherosclerotic disease of aorta. No abdominal aortic aneurysm. LYMPH NODES: Unremarkable. No enlarged lymph nodes. CT/Abdomen/Pelvis WITH Contrast IMPRESSION: 1. Hepatomegaly with fatty infiltration. 2. Cholelithiasis. 3. Fecal retention in the colon consistent with constipation. 4. Umbilical hernia containing fat. Reading Location: [facility] CC: Dr. Taylor Sanz DO; Dr. 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 Normal [facility] Absolute lymphocyte countOrd ered By: Taylor Sanz on 12-29-2024 Lymphocytes Auto (Unsp spec) [#/Vol] 2.73 10*3/uL 0.83-4.51 [facility] Absolute neutrophil countOrd ered By: Taylor Sanz on 12-29-2024 Neutrophils (Bld) [#/Vol] 2.8 10*3/uL 2.0-7.7 [facility] Anion gap in Serum or Plasma Ordered By: Taylor Sanz on 12-29-2024 Anion gap [Moles/Vol] 10 mmol/L 5-15 [facility] Automated lymphocyte count a s percentage of total leukocytesOrdered By: Taylor Sanz on 12-29-2024 Lymphocytes/100 WBC Auto (Unsp spec) 44.8 % High 19-41 [facility] BUN/creatinine ratioOrdered By: Taylor Sanz on 12-29-2024 Urea nitrogen/Creatinine [Mass ratio] 23.0 mg/mg High 10-20 [facility] Basic Metabolic Profile (BMP )on 12-29-2024 BUN/CRE 23.0 RATIO High 10-20 [facility] Comment on above: Performed By: #### L 300.8000 #### [facility] [address] [place], [address] Calcium [Mass/Vol] 9.5 mg/dL Normal 7.6-11.0 [facility] Comment on above: Performed By: #### L 300.8000 #### [facility] [address] [place], [address] Chloride [Moles/Vol] 108 mmol/L Normal 98-108 [facility] Comment on above: Performed By: #### L 300.8000 #### [facility] [address] [place], [address] CO2 [Moles/Vol] 22.9 mmol/L Normal 21.0-32.0 [facility] Comment on above: Performed By: #### L 300.8000 #### [facility] [address] [place], [address] Creatinine [Mass/Vol] 0.73 mg/dL Normal 0.70-1.20 [facility] Comment on above: Performed By: #### L 300.8000 #### [facility] [address] [place], [address] ECRCL 86.21 ml/min Normal 50-250 [facility] Comment on above: Performed By: #### L 300.8000 #### [facility] [address] [place], [address] GAP 10 Normal 5-15 [facility] Comment on above: Performed By: #### L 300.8000 #### [facility] [address] [place], [address] GFR/1.73 sq M.predicted among non-blacks MDRD (S/P/Bld) [Vol rate/Area] 93 mL/min/{1.73_m2} Normal >60 [facility] Comment on above: Result Comment: mL/m in/1.73m2 CKD-EPI Creatinine Equation (2020) Performed By: #### L 300.8000 #### [facility] [address] [place], [address] Glucose [Mass/Vol] 98 mg/dL Normal 70-99 [facility] Comment on above: Performed By: #### L 300.8000 #### [facility] [address] [place], [address] Potassium [Moles/Vol] 3.8 mmol/L Normal 3.3-5.1 [facility] Comment on above: Performed By: #### L 300.8000 #### [facility] [address] [place], [address] Sodium [Moles/Vol] 141 mmol/L Normal 133-145 [facility] Comment on above: Performed By: #### L 300.8000 #### [facility] [address] [place], [address] Urea nitrogen [Mass/Vol] 17 mg/dL Normal 4-19 [facility] Comment on above: Performed By: #### L 300.8000 #### [facility] [address] [place], [address] Basophil percentageOrdered B y: Taylor Sanz on 12-29-2024 Basophils/100 WBC (Bld) 0.5 % 0-1 [facility] CBC W/Diff, Automatedon Absolute Lymph 2.73 X10 3/uL Normal 0.83-4.51 [facility] Comment on above: Performed By: #### L 300.8000 #### [facility] [address] [place], [address] Absolute Neut 2.8 X10 3/uL Normal 2.0-7.7 [facility] Comment on above: Performed By: #### L 300.8000 #### [facility] [address] [place], [address] Basophils/100 WBC (Bld) 0.5 % Normal 0-1 [facility] Comment on above: Performed By: #### L 300.8000 #### [facility] [address] [place], [address] Eosinophils/100 WBC (Bld) 1.8 % Normal 0-5 [facility] Comment on above: Performed By: #### L 300.8000 #### [facility] [address] [place], [address] Erythrocyte distribution width (RBC) [Ratio] 13.5 % Normal 11.6-14.6 [facility] Comment on above: Performed By: #### L 300.8000 #### [facility] [address] [place], [address] Hematocrit (Bld) [Volume fraction] 34.5 % Low 37-47 [facility] Comment on above: Performed By: #### L 300.8000 #### [facility] [address] [place], [address] Hemoglobin (Bld) [Mass/Vol] 12.0 g/dL Normal 12.0-15.0 [facility] Comment on above: Performed By: #### L 300.8000 #### [facility] [address] [place], [address] IG% 0.200 Normal 0.0-0.9 [facility] Comment on above: Result Comment: IG% - Immature Granulocytes (promyelocytes, myelocytes and metamyelocytes) > 1% indicates that a LEFT SHIFT is Present. Performed By: #### L 300.8000 #### [facility] [address] [place], [address] Lymphocytes/100 WBC (Bld) 44.8 % High 19-41 [facility] Comment on above: Performed By: #### L 300.8000 #### [facility] [address] [place], [address] MCH (RBC) [Entitic mass] 31.0 pg Normal 27.0-32.0 [facility] Comment on above: Performed By: #### L 300.8000 #### [facility] [address] [place], [address] MCHC (RBC) [Mass/Vol] 34.8 g/dL Normal 32-36 [facility] Comment on above: Performed By: #### L 300.8000 #### [facility] [address] [place], [address] MCV (RBC) [Entitic vol] 89.1 fL Normal 81-99 [facility] Comment on above: Performed By: #### L 300.8000 #### [facility] [address] [place], [address] Monocytes/100 WBC (Bld) 6.6 % Normal 0-10 [facility] Comment on above: Performed By: #### L 300.8000 #### [facility] [address] [place], [address] Neutrophils/100 WBC (Bld) 46.1 % Low 47-70 [facility] Comment on above: Performed By: #### L 300.8000 #### [facility] [address] [place], [address] Nucleated RBC (Bld) [#/Vol] 0 10*3/uL Normal 0-5 [facility] Comment on above: Performed By: #### L 300.8000 #### [facility] [address] [place], [address] Platelet mean volume (Bld) [Entitic vol] 9.2 fL Normal 6.2-12.0 [facility] Comment on above: Performed By: #### L 300.8000 #### [facility] [address] [place], [address] Platelets (Bld) [#/Vol] 300 10*3/uL Normal 150-450 [facility] Comment on above: Performed By: #### L 300.8000 #### [facility] [address] [place], [address] RBC (Bld) [#/Vol] 3.87 10*6/uL Low 4.2-5.4 [facility] Comment on above: Performed By: #### L 300.8000 #### [facility] [address] [place], [address] RDW SD 44.5 fl High 35.1-43.9 [facility] Comment on above: Performed By: #### L 300.8000 #### [facility] [address] [place], [address] WBC (Bld) [#/Vol] 6.1 10*3/uL Normal 4.4-11.0 [facility] Comment on above: Performed By: #### L 300.8000 #### [facility] [address] [place], [address] Carbon dioxide, total [Moles /volume] in Central venous bloodOrdered By: Taylor Sanz on 12-29-2024 CO2 [Moles/Vol] 22.9 mmol/L 21.0-32.0 [facility] Chloride assayOrdered By: Terrance Sanz on 12-29-2024 Chloride [Moles/Vol] 108 mmol/L 98-108 [facility] Emergency Department Summary on 12-29-2024 Emergency Department Summary [facility] Medical Records Department [address] [place] [address] Emergency Department Summary 12/29/24 MR#: [id number] Acct: [id number] Name: REINA MALLOY Rep #: [id number] : 1960 64 From: Taylor Sanz DO PCP: Dr. 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 This was performed and [facility] in October of this year. She is presenting today for of this last week her who normally changes her bags noticed that her stoma is getting smaller. Her stools have been more like ribbon. She feels that she is maybe had some decrease stool output but is still passing stool and gas. She started to feel little bloated but nothing too bad. No associated nausea and vomiting. Came in for further evaluation. She is hopeful to have her ostomy reversed in May. Came in for further evaluation. Denies any fever or chills. Denies any black or blood in her stool. Has no abdominal pain. Notes that last week she did take some MiraLAX. [facility] Medical History History of diverticulitis of colon Colostomy in place Hyperlipidemia HTN (hypertension) Home Medications ???Medication ???Instructions ???Recorded ???Last Taken ???Type amlodipine 5 mg tablet 5 mg PO DAILY blood pressure 11/1611/16/24 History fenofibrate 160 mg tablet 160 mg PO DAILY cholesterol Unknown History losartan 50 mg tablet 50 mg PO DAILY blood pressure 10/2211/16/24 History pravastatin 40 mg tablet 40 mg PO QHS cholesterol 11/16/24 11/15/24 History apixaban 5 mg (74 tabs) tablets in See Rx Instructions PO .COMPLEX 11/17/24 Unknown Rx a dose pack ([employer] DVT-PE Treat #74 tabs 30D Start) Allergy/AdvReac Type Severity Reaction Status Date / Time No Known Allergies Allergy Verified 12/29/24 09:24 Social History Smoking Status: Never smoker ROS ROS ED Constitutional Constitutional ED: Denies chills or fever(s) Respiratory/Chest Respiratory/Chest: Denies cough Gastrointestinal Gastrointestinal: Reports other Details: Narrowing of her stoma, slightly decreased stool output ; Denies abdominal pain, diarrhea, nausea or vomiting Musculoskeletal Musculoskeletal: Denies arthralgias or myalgias Neurologic Neurologic: Denies weakness Hematologic/Lymphatic Hematologic/Lymphatic : Reports easy bleeding, easy bruising and other Details: On Eliquis EXAM Physical Exam Const Vital Signs: 12/29/24 09:24 12/29/24 11:37 12/29/24 13:00 Temperature 97.8 F Temperature Source Oral Pulse Rate 71 57 L 60 Respiratory Rate 19 H 14 15 Blood Pressure 134/82 H 124/69 H 125/78 H Blood Pressure Mean 99 87 93 Pulse Ox 98 99 98 Oxygen Delivery Method Room Air Room Air 12/29/24 15:00 Temperature Temperature Source Pulse Rate 60 Respiratory Rate 14 Blood Pressure 119/78 Blood Pressure Mean 91 Pulse Ox 99 Oxygen Delivery Method Positive well nourished and well developed General Appearance ED: well developed and NAD HEENT Reports moist mucous membranes Neck supple Chest Wall inspection of chest normal and palpation of chest normal Resp normal respiratory effort and clear to auscultation bilaterally Cardio regular rate and regular rhythm GI non-tender and non-distended GI Narrative: Colostomy in place on the left side of the abdomen. Bag is removed. The stoma appears slightly prolapsed and is quite narrow. I cannot even fit my pinky through it. There is brown stool in her ostomy bag. It is nontender. No active bleeding. Surrounding skin is soft and nontender. Abdomen is soft and nontender. Neuro oriented x3 Sensorium / Orientation: alert Motor Exam: Negative for general weakness Psych mental status grossly normal Skin no rashes or lesions noted and no wounds MDM MDM MDM Narrative Medical decision making narrative: Patient evaluated for concern of closure of her stoma at her colostomy site. She continues stool output but has had decreased output and states it has been more ribbonlike. The colostomy was placed in October of this year so relatively new. She does not have associated tenderness. Physical exam largely benign however the stoma is very tight. I did speak with Dr. Woo, general surgery. He requested CT abdomen pelvis with IV and oral contrast to ensure there is no obstruction. He will come down into evaluate the patient. CT shows degree of constipation with no signs of obstruction or other a (more content not included)... Normal [facility] Eosinophil percentageOrdered By: Taylor Sanz on 12-29-2024 Eosinophils/100 WBC (Bld) 1.8 % 0-5 [facility] Erythrocyte distribution wid th ratioOrdered By: Taylor Sanz on 12-29-2024 Erythrocyte distribution width (RBC) [Ratio] 13.5 % 11.6-14.6 [facility] Erythrocyte distribution wid th standard deviationOrdered By: Taylor Sanz on 12-29-2024 Erythrocyte distribution width (RBC) [Ratio] 44.5 fl High 35.1-43.9 [facility] Glomerular filtration rate ( GFR) estimation/1.73 sq m using serum, plasma, or whole bOrdered By: Taylor Sanz on 12-29-2024 GFR/1.73 sq M.predicted among non-blacks MDRD (S/P/Bld) [Vol rate/Area] 93 mL/min/{1.73_m2} >60 [facility] Comment on above: mL/min/1.73m2 CKD-EP I Creatinine Equation (2020) Hematocrit Auto (Bld) [Volum e fraction]Ordered By: Taylor Sanz on 12-29-2024 Hematocrit (Bld) [Volume fraction] 34.5 % Low 37-47 [facility] Hemoglobin measurementOrdere d By: Taylor Sanz on 12-29-2024 Hemoglobin (Bld) [Mass/Vol] 12.0 g/dL 12.0-15.0 [facility] Immature granulocytes/100 WB C Auto (Bld)Ordered By: Taylor Sanz on 12-29-2024 Immature granulocytes/100 WBC (Bld) 0.200 % 0.0-0.9 [facility] Comment on above: IG% - Immature Granu locytes (promyelocytes, myelocytes and metamyelocytes) > 1% indicates that a LEFT SHIFT is Present. MCV (mean corpuscular volume ) determinationOrdered By: Taylor Sanz on 12-29-2024 MCV (RBC) [Entitic vol] 89.1 fL 81-99 [facility] Mean corpuscular hemoglobin (MCH) determinationOrdered By: Taylor Sanz on 12-29-2024 MCH (RBC) [Entitic mass] 31.0 pg 27.0-32.0 [facility] Mean corpuscular hemoglobin concentration (MCHC) determinationOrdered By: Taylor Sanz on 12-29-2024 MCHC (RBC) [Mass/Vol] 34.8 g/dL 32-36 [facility] Mean platelet volume determi nationOrdered By: Taylor Sanz on 12-29-2024 Platelet mean volume (Bld) [Entitic vol] 9.2 fL 6.2-12.0 [facility] Monocyte percentageOrdered B y: Taylor Sanz on 12-29-2024 Monocytes/100 WBC (Bld) 6.6 % 0-10 [facility] Neutrophil percentageOrdered By: Taylor Sanz on 12-29-2024 Neutrophils/100 WBC (Bld) 46.1 % Low 47-70 [facility] Nucleated red blood cell per centageOrdered By: Taylor Sanz on 12-29-2024 Nucleated RBC/100 WBC (Bld) [Ratio] 0 % 0-5 [facility] Platelet countOrdered By: Terrance Sanz on 12-29-2024 Platelets (Bld) [#/Vol] 300 10*3/uL 150-450 [facility] Potassium measurement (mass/ volume)Ordered By: Taylor Sanz on 12-29-2024 Potassium (Unsp spec) [Mass/Vol] 3.8 mmol/L 3.3-5.1 [facility] RBC Auto (Bld) [#/Vol]Ordere d By: Taylor Sanz on 12-29-2024 RBC (Bld) [#/Vol] 3.87 10*6/uL Low 4.2-5.4 [facility] Serum creatinine measurement (mass/volume)Ordered By: Taylor Sanz on 12-29-2024 Creatinine [Mass/Vol] 0.73 mg/dL 0.70-1.20 [facility] Serum glucose measurement (m ass/volume)Ordered By: Taylor Sanz on 12-29-2024 Glucose [Mass/Vol] 98 mg/dL 70-99 [facility] Serum or plasma calcium galileo urement (mass/volume)Ordered By: Taylor Sanz on 12-29-2024 Calcium [Mass/Vol] 9.5 mg/dL 7.6-11.0 [facility] Serum or plasma urea nitroge n measurement (mass/volume)Ordered By: Taylor Sanz on 12-29-2024 Urea nitrogen [Mass/Vol] 17 mg/dL 4-19 [facility] Sodium levelOrdered By: Haris Sanz on 12-29-2024 Sodium [Moles/Vol] 141 mmol/L 133-145 [facility] White blood cell (WBC) count Ordered By: Taylor Sanz on 12-29-2024 WBC (Bld) [#/Vol] 6.1 10*3/uL 4.4-11.0 [facility] Absolute lymphocyte countOrd ered By: Melania Parker on 11-17-2024 Lymphocytes Auto (Unsp spec) [#/Vol] 1.81 10*3/uL 0.83-4.51 [facility] Absolute neutrophil countOrd ered By: Melania Parker on 11-17-2024 Neutrophils (Bld) [#/Vol] 5.3 10*3/uL 2.0-7.7 [facility] Activated partial thrombopla stin time (aPTT) in platelet poor plasma by coagulation aOrdered By: Melania Parker on 11-17-2024 aPTT Coag (PPP) [Time] 54.9 s High 24.1-36.2 [facility] Anion gap in Serum or Plasma Ordered By: Melania Parker on 11-17-2024 Anion gap [Moles/Vol] 11 mmol/L 5-15 [facility] Automated lymphocyte count a s percentage of total leukocytesOrdered By: Melania Parker on 11-17-2024 Lymphocytes/100 WBC Auto (Unsp spec) 23.1 % 19-41 [facility] BUN/creatinine ratioOrdered By: Melania Parker on 11-17-2024 Urea nitrogen/Creatinine [Mass ratio] 23.7 mg/mg High 10-20 [facility] Basic Metabolic Profile (BMP )on 11-17-2024 BUN/CRE 23.7 RATIO High 10-20 [facility] Comment on above: Performed By: #### L 100.0100, L500.2500 #### [facility] [address] [place], [address] Calcium [Mass/Vol] 9.3 mg/dL Normal 7.6-11.0 [facility] Comment on above: Performed By: #### L 100.0100, L500.2500 #### [facility] [address] [place], [address] Chloride [Moles/Vol] 106 mmol/L Normal 98-108 [facility] Comment on above: Performed By: #### L 100.0100, L500.2500 #### [facility] [address] [place], [address] CO2 [Moles/Vol] 22.0 mmol/L Normal 21.0-32.0 [facility] Comment on above: Performed By: #### L 100.0100, L500.2500 #### [facility] [address] [place], [address] Creatinine [Mass/Vol] 0.64 mg/dL Low 0.70-1.20 [facility] Comment on above: Performed By: #### L 100.0100, L500.2500 #### [facility] [address] [place], [address] ECRCL 97.41 ml/min Normal 50-250 [facility] Comment on above: Performed By: #### L 100.0100, L500.2500 #### [facility] [address] [place], [address] GAP 11 Normal 5-15 [facility] Comment on above: Performed By: #### L 100.0100, L500.2500 #### [facility] [address] [place], [address] GFR/1.73 sq M.predicted among non-blacks MDRD (S/P/Bld) [Vol rate/Area] 100 mL/min/{1.73_m2} Normal >60 [facility] Comment on above: Result Comment: mL/m in/1.73m2 CKD-EPI Creatinine Equation (2020) Performed By: #### L 100.0100, L500.2500 #### [facility] [address] [place], [address] Glucose [Mass/Vol] 133 mg/dL High 70-99 [facility] Comment on above: Performed By: #### L 100.0100, L500.2500 #### [facility] [address] [place], [address] Potassium [Moles/Vol] 3.8 mmol/L Normal 3.3-5.1 [facility] Comment on above: Performed By: #### L 100.0100, L500.2500 #### [facility] [address] [place], [address] Sodium [Moles/Vol] 139 mmol/L Normal 133-145 [facility] Comment on above: Performed By: #### L 100.0100, L500.2500 #### [facility] [address] [place], [address] Urea nitrogen [Mass/Vol] 15 mg/dL Normal 4-19 [facility] Comment on above: Performed By: #### L 100.0100, L500.2500 #### [facility] [address] [place], [address] Basophil percentageOrdered B y: Melania Parker on 11-17-2024 Basophils/100 WBC (Bld) 0.6 % 0-1 [facility] CBC W/Diff, Automatedon 10-22 Absolute Lymph 1.81 X10 3/uL Normal 0.83-4.51 [facility] Comment on above: Performed By: #### L 100.0100, L500.2500 #### [facility] [address] [place], [address] Absolute Neut 5.3 X10 3/uL Normal 2.0-7.7 [facility] Comment on above: Performed By: #### L 100.0100, L500.2500 #### [facility] [address] [place], [address] Basophils/100 WBC (Bld) 0.6 % Normal 0-1 [facility] Comment on above: Performed By: #### L 100.0100, L500.2500 #### [facility] [address] [place], [address] Eosinophils/100 WBC (Bld) 0.8 % Normal 0-5 [facility] Comment on above: Performed By: #### L 100.0100, L500.2500 #### [facility] [address] [place], [address] Erythrocyte distribution width (RBC) [Ratio] 12.8 % Normal 11.6-14.6 [facility] Comment on above: Performed By: #### L 100.0100, L500.2500 #### [facility] [address] [place], [address] Hematocrit (Bld) [Volume fraction] 29.7 % Low 37-47 [facility] Comment on above: Performed By: #### L 100.0100, L500.2500 #### [facility] [address] [place], [address] Hemoglobin (Bld) [Mass/Vol] 10.4 g/dL Low 12.0-15.0 [facility] Comment on above: Performed By: #### L 100.0100, L500.2500 #### [facility] [address] [place], [address] IG% 0.400 Normal 0.0-0.9 [facility] Comment on above: Result Comment: IG% - Immature Granulocytes (promyelocytes, myelocytes and metamyelocytes) > 1% indicates that a LEFT SHIFT is Present. Performed By: #### L 100.0100, L500.2500 #### [facility] [address] [place], [address] Lymphocytes/100 WBC (Bld) 23.1 % Normal 19-41 [facility] Comment on above: Performed By: #### L 100.0100, L500.2500 #### [facility] [address] [place], [address] MCH (RBC) [Entitic mass] 30.7 pg Normal 27.0-32.0 [facility] Comment on above: Performed By: #### L 100.0100, L500.2500 #### [facility] [address] [place], [address] MCHC (RBC) [Mass/Vol] 35.0 g/dL Normal 32-36 [facility] Comment on above: Performed By: #### L 100.0100, L500.2500 #### [facility] [address] [place], [address] MCV (RBC) [Entitic vol] 87.6 fL Normal 81-99 [facility] Comment on above: Performed By: #### L 100.0100, L500.2500 #### [facility] [address] [place], [address] Monocytes/100 WBC (Bld) 8.0 % Normal 0-10 [facility] Comment on above: Performed By: #### L 100.0100, L500.2500 #### [facility] [address] [place], [address] Neutrophils/100 WBC (Bld) 67.1 % Normal 47-70 [facility] Comment on above: Performed By: #### L 100.0100, L500.2500 #### [facility] [address] [place], [address] Nucleated RBC (Bld) [#/Vol] 0 10*3/uL Normal 0-5 [facility] Comment on above: Performed By: #### L 100.0100, L500.2500 #### [facility] [address] [place], [address] Platelet mean volume (Bld) [Entitic vol] 9.3 fL Normal 6.2-12.0 [facility] Comment on above: Performed By: #### L 100.0100, L500.2500 #### [facility] [address] [place], [address] Platelets (Bld) [#/Vol] 386 10*3/uL Normal 150-450 [facility] Comment on above: Performed By: #### L 100.0100, L500.2500 #### [facility] [address] [place], [address] RBC (Bld) [#/Vol] 3.39 10*6/uL Low 4.2-5.4 [facility] Comment on above: Performed By: #### L 100.0100, L500.2500 #### [facility] [address] [place], [address] RDW SD 40.5 fl Normal 35.1-43.9 [facility] Comment on above: Performed By: #### L 100.0100, L500.2500 #### [facility] [address] [place], [address] WBC (Bld) [#/Vol] 7.9 10*3/uL Normal 4.4-11.0 [facility] Comment on above: Performed By: #### L 100.0100, L500.2500 #### [facility] [address] [place], [address] Carbon dioxide, total [Moles /volume] in Central venous bloodOrdered By: Melania Parker on 11-17-2024 CO2 [Moles/Vol] 22.0 mmol/L 21.0-32.0 [facility] Chloride assayOrdered By: Alfredo Parker on 11-17-2024 Chloride [Moles/Vol] 106 mmol/L 98-108 [facility] Discharge Instructionon 10-22 Discharge Instruction [facility] Medical Records Department [address] [place] [address] Instructions for Home/Discharge Instructions 11/17/24 1034 MR#: [id number] Acct: [id number] Name: REINA MALLOY Rep #: [id number] : 1960 64 From: Faizan Mckenzie MD PCP: Dr. Corbin Vidal, DO Status:ADM MOMO Discharge Instructions Diet Discharge Diet: Low fat / Low cholesterol DC O2, CPAP, BIPAP needs Home O2 Discharge instructions: No Dressing / Incision Discharge Activity: Return to Normal Activity Dressing / Incision Call your doctor if you observe: Fever of 101 or Higher, Shortness of breath, Dizziness, Fainting spells, Swelling in the ankles, Chest pain and Increased palpitations (irregular heartbeat) Follow Up Care Test Results: Test results from this visit will be discussed in further detail at your follow-up appointment, if applicable. Discharge Plan Admission Admit Date/Time: 11/16/24 17:01 Attending Provider: Faizan Mckenzie Primary Care Provider: Corbin Vidal Consulting Providers: Melania Parker Instructions Patient Instructions: Embolism Pulmonary Dc, DVT/PE Discharge instruction sheet Discharge Orders/Prescriptions Prescriptions: New Eliquis DVT-PE Treat 30D Start 5 mg (74 tabs) tablets,dose pack See Rx Instructions .ROUTE .COMPLEX Qty: 74 0RF Rx Instructions: orally per package directions Continued losartan 50 mg tablet 50 mg PO DAILY pravastatin 40 mg tablet 40 mg PO QHS amlodipine 5 mg tablet 5 mg PO DAILY fenofibrate 160 mg tablet 160 mg PO DAILY Referrals / Follow Up: Kristie Monique MD [Med Staff - Active Staff] - Within 3 Months Corbin Vidal DO [Primary Care Provider] - Within 1 Week Disposition Disposition (needs filled in before D/C Order can be placed): Home, Self Care 11/17/24 1041 Faizan Mckenzie MD CC: Dr. Corbin Vidal DO; Dr. Melania Parker MD Signed Normal [facility] Echo Complete W/ Contraston 11-17-2024 Echo Complete W/ Contrast [facility] Cardiovascular Services [address] [place] [id number] Echo Complete W/ Contrast 11/17/24 0857 MR#: [id number] Acct: [id number] Name: REINA MALLOY Rep #: [id number] : 1960 64 From: Luzma Morel MD Attending Dr: Dr. Faizan Mckenzie MD Status : DIS MOMO Ordering Dr: Melania Parker MD Date: 11/17/24 Location: [facility] Sex: F C Admitted: 11/16/24 Reason For Study Reason For Study: PULMONARY EMBOLISM Procedure This was a 2D Doppler, Color Flow transthoracic echocardiogram. The study was technically difficult. Contrast injection was performed. Exam performed portable in ED. Left Ventricle Normal LV size. Mild concentric left ventricular hypertrophy. Left ventricular systolic function is normal. The estimated ejection fraction is 60 %. Stage 1 diastolic dysfunction. No regional wall motion abnormalities noted. Right Ventricle Normal RV size. Normal systolic function. Atria The left and right atria are normal. Mitral Valve The mitral valve is structurally normal. No prolapse or stenosis seen. Mild (1+) mitral valve insufficiency. Tricuspid Valve Normal tricuspid valve. Mild (1+) tricuspid valve insufficiency. Pulmonary artery systolic pressure is 27 mmHg. Aortic Valve Trisinus/trileaflet aortic valve. Mild focal aortic valve calcification. There is no aortic stenosis. Pulmonic Valve The pulmonic valve is not well visualized. Great Vessels Normal sized aortic root. Pericardium/Pleural No pericardial effusion. Left pleural effusion. Medication Diluted definity 2ml given slow IV push to enhance endocardial definition. MMode/2D Measurements Calculations LVIDd: 3.9 cm IVSd: 1.1 cm Ao root diam: 2.8 cm LVIDs: 2.8 cm LVPWd: 1.2 cm RVDd: 3.9 cm FS: 27.3 % LAV(MOD-bp): 39.3 ml LVAd ap4: 33.9 cm2 SV(MOD-sp4): 75.3 ml LAV(MOD-bp) Indexed: 20.4 ml/m2 LVLd ap4: 8.9 cm SI(MOD-sp4): 39.2 ml/m2 LAV(MOD-sp2): 52.9 ml EDV(MOD-sp4): 106.3 ml LAV(MOD-sp4): 29.3 ml EDV(sp4-el): 110.1 ml LVAs ap4: 15.3 cm2 LVLs ap4: 6.5 cm ESV(MOD-sp4): 31.0 ml ESV(sp4-el): 30.6 ml EF(MOD-sp4): 70.8 % EF(sp4-el): 72.2 % SV(sp4-el): 79.5 ml LA A4 area: 14.4 cm2 LA dimension(2D): 3.2 cm RA A4 area: 13.7 cm2 Time Measurements MV dec time: 0.19 sec Doppler Measurements Calculations MV E max justin: 61.3 cm/sec Lat Peak E' Justin: 11.3 cm/sec Med Peak E' Justin: 10.4 cm/sec MV A max justin: 70.6 cm/sec E/E' lat: 5.4 E/E' med: 5.9 MV E/A: 0.87 MV V2 max: 76.9 cm/sec MV dec slope: 320.2 cm/sec2 Ao V2 max: 187.0 cm/sec MV max P.4 mmHg Ao max P.0 mmHg MV V2 mean: 55.3 cm/sec Ao V2 mean: 127.9 cm/sec MV mean P.3 mmHg Ao mean P.5 mmHg MV V2 VTI: 24.5 cm Ao V2 VTI: 38.6 cm AV (velocity ratio): 0.80 LV V1 max: 146.8 cm/sec PA V2 max: 96.7 cm/sec TR max justin: 247.1 cm/sec LV V1 max P.6 mmHg PA V2 mean: 68.5 cm/sec TR max P.4 mmHg LV V1 mean P.5 mmHg LV V1 mean: 99.6 cm/sec LV V1 VTI: 30.9 cm ECHO/Echo Complete W/ Contrast Interpretation Summary The estimated ejection fraction is 60 %. Mild concentric left ventricular hypertrophy. Mild (1+) mitral valve insufficiency. Mild (1+) tricuspid valve insufficiency. Stage 1 diastolic dysfunction. Contrast injection was performed. Ordering Physician: Melania Parker Referring Physician: CORBIN VIDAL Performed By: Lary Renteria RCS 11/17/24 1518 Date Luzma Morel MD CC: Dr. Faizan Mckenzie MD; Dr. Corbin Vidal DO; Dr. Melania Parker MD Date Dictated: 11/17/24 0857 Date Transcribed: 11/17/24 1518 Swing Ride Operator: Signed Normal [facility] Electrocardiogram reportOrde red By: Javon Harris on 11-17-2024 EKG study [facility] Cardiovascular [place] [address] [place] [address] 12 Lead EKG 11/16/24 1459 MR#: [id number] Acct: [id number] Name: REINA MALLOY Rep #:[id number] : 1960 64 From: Javon Harris MD Attending Dr: Dr. Faizan Mckenzie MD Status: ADM MOMO Ordering Dr: Uriel Ramirez DO Date: 0 11/16/24 Location: [facility] Sex: F C Admitted: 11/16/24 Test Reason : Blood Pressure : */* mmHG Vent. Rate : 90 BPM Atrial Rate : 90 BPM P-R Int : 170 ms QRS Dur : 90 ms QT Int : 360 ms P-R-T Axes : 48 11 64 degrees QTcB Int : 440 ms Normal sinus rhythm Normal ECG Confirmed by VI RAMOS, JAVON ([id number]), video editor JENNY BOWIE ([id number]) on 11/17/2024 8:24:15 AM Referred By: ASHLEY Confirmed By: JAVON HARRIS MD 11/17/24 0824 Date _ Javon Harris MD CC: Dr. Faizan Mckenzie MD; Dr. Corbin Vidal DO; Dr. Uriel Ramirez DO ~ Signed [facility] Other Phone: Eosinophil percentageOrdered By: Melania Parker on 11-17-2024 Eosinophils/100 WBC (Bld) 0.8 % 0-5 [facility] Erythrocyte distribution wid th ratioOrdered By: Melania Parker on 11-17-2024 Erythrocyte distribution width (RBC) [Ratio] 12.8 % 11.6-14.6 [facility] Erythrocyte distribution wid th standard deviationOrdered By: Melania Parker on 11-17-2024 Erythrocyte distribution width (RBC) [Entitic vol] 40.5 fL 35.1-43.9 [facility] Erythrocyte distribution width (RBC) [Ratio] 40.5 fl 35.1-43.9 [facility] Estimation of creatinine michele aranceOrdered By: Melania Parker on 11-17-2024 Estimated Creatinine Clearance Calc 97.41 ml/min 50-250 [facility] GFR/1.73 sq M.predicted jeannette g non-blacks MDRD (S/P/Bld) [Vol rate/Area]Ordered By: Melania Parker on 11-17-2024 Estimated GFR (MDRD) Non-Af Amer 100 >60 [facility] Comment on above: mL/min/1.73m2 CKD-EP I Creatinine Equation (2020) Glomerular filtration rate ( GFR) estimation/1.73 sq m using serum, plasma, or whole bOrdered By: Melania Parker on 11-17-2024 GFR/1.73 sq M.predicted among non-blacks MDRD (S/P/Bld) [Vol rate/Area] 100 mL/min/{1.73_m2} >60 [facility] Comment on above: mL/min/1.73m2 CKD-EP I Creatinine Equation (2020) Hematocrit Auto (Bld) [Volum e fraction]Ordered By: Melania Parker on 11-17-2024 Hematocrit (Bld) [Volume fraction] 29.7 % Low 37-47 [facility] Hemoglobin measurementOrdere d By: Melania Parker on 11-17-2024 Hemoglobin (Bld) [Mass/Vol] 10.4 g/dL Low 12.0-15.0 [facility] Immature granulocytes/100 WB C Auto (Bld)Ordered By: Melania Parker on 11-17-2024 Immature granulocytes/100 WBC (Bld) 0.400 % 0.0-0.9 [facility] Comment on above: IG% - Immature Granu locytes (promyelocytes, myelocytes and metamyelocytes) > 1% indicates that a LEFT SHIFT is Present. Lymphocytes Auto (Unsp spec) [#/Vol]Ordered By: Melania Parker on 11-17-2024 Lymphocytes (Bld) [#/Vol] 1.81 10*3/uL 0.83-4.51 [facility] Lymphocytes/100 WBC Auto (Un sp spec)Ordered By: Melania Parker on 11-17-2024 Lymphocytes/100 WBC (Bld) 23.1 % 19-41 [facility] MCV (mean corpuscular volume ) determinationOrdered By: Melania Parker on 11-17-2024 MCV (RBC) [Entitic vol] 87.6 fL 81-99 [facility] Mean corpuscular hemoglobin (MCH) determinationOrdered By: Melania Parker on 11-17-2024 MCH (RBC) [Entitic mass] 30.7 pg 27.0-32.0 [facility] Mean corpuscular hemoglobin concentration (MCHC) determinationOrdered By: Melania Parker on 11-17-2024 MCHC (RBC) [Mass/Vol] 35.0 g/dL 32-36 [facility] Mean platelet volume determi nationOrdered By: Melania Parker on 11-17-2024 Platelet mean volume (Bld) [Entitic vol] 9.3 fL 6.2-12.0 [facility] Monocyte percentageOrdered B y: Melania Parker on 11-17-2024 Monocytes/100 WBC (Bld) 8.0 % 0-10 [facility] Neutrophil percentageOrdered By: Melania Parker on 11-17-2024 Neutrophils/100 WBC (Bld) 67.1 % 47-70 [facility] Nucleated red blood cell per centageOrdered By: Melania Parker on 11-17-2024 Nucleated RBC/100 WBC (Bld) [Ratio] 0 % 0-5 [facility] Partial Thromboplast Timeon 11-17-2024 aPTT Coag (Bld) [Time] 54.9 s High 24.1-36.2 [facility] Comment on above: Order Comment: Comme nts: hep gtt Performed By: #### L 300.5640 #### [facility] [address] [place], [address] aPTT Coag (Bld) [Time] 49.7 s High 24.1-36.2 [facility] Comment on above: Order Comment: Comme nts: heparin drip Performed By: #### L 300.8000 #### [facility] [address] [place], [address] Platelet countOrdered By: Alfredo Parker on 11-17-2024 Platelets (Bld) [#/Vol] 386 10*3/uL 150-450 [facility] Potassium (Unsp spec) [Mass/ Vol]Ordered By: Melania Parker on 11-17-2024 Potassium [Moles/Vol] 3.8 mmol/L 3.3-5.1 [facility] Potassium measurement (mass/ volume)Ordered By: Melania Parker on 11-17-2024 Potassium (Unsp spec) [Mass/Vol] 3.8 mmol/L 3.3-5.1 [facility] RBC Auto (Bld) [#/Vol]Ordere d By: Melania Parker on 11-17-2024 RBC (Bld) [#/Vol] 3.39 10*6/uL Low 4.2-5.4 [facility] Serum creatinine measurement (mass/volume)Ordered By: Melania Parker on 11-17-2024 Creatinine [Mass/Vol] 0.64 mg/dL Low 0.70-1.20 [facility] Serum glucose measurement (m ass/volume)Ordered By: Melania Parker on 11-17-2024 Glucose [Mass/Vol] 133 mg/dL High 70-99 [facility] Serum or plasma calcium galileo urement (mass/volume)Ordered By: Melania Parker on 11-17-2024 Calcium [Mass/Vol] 9.3 mg/dL 7.6-11.0 [facility] Serum or plasma urea nitroge n measurement (mass/volume)Ordered By: Melania Parker on 11-17-2024 Urea nitrogen [Mass/Vol] 15 mg/dL 4-19 [facility] Sodium levelOrdered By: Olivia Parker on 11-17-2024 Sodium [Moles/Vol] 139 mmol/L 133-145 [facility] White blood cell (WBC) count Ordered By: Melania Parker on 11-17-2024 WBC (Bld) [#/Vol] 7.9 10*3/uL 4.4-11.0 [facility] aPTT Coag (PPP) [Time]Ordere d By: Melania Parker on 11-17-2024 aPTT Coag (Bld) [Time] 54.9 s High 24.1-36.2 [facility] 12 Lead EKGon 11-16-2024 12 Lead EKG [facility] Cardiovascular Services [address] [place] [address] 12 Lead EKG 11/16/24 1459 MR#: [id number] Acct: [id number] Name: REINA MALLOY Rep #: [id number] : 1960 64 From: Javon Harris MD Attending Dr: Dr. Faizan Mckenzie MD Status : ADM MOMO Ordering Dr: Uriel Ramirez DO Date: 11/16/24 Location: [facility] Sex: F C Admitted: 11/16/24 Test Reason : Blood Pressure : */* mmHG Vent. Rate : 90 BPM Atrial Rate : 90 BPM P-R Int : 170 ms QRS Dur : 90 ms QT Int : 360 ms P-R-T Axes : 48 11 64 degrees QTcB Int : 440 ms Normal sinus rhythm Normal ECG Confirmed by VI RAMOS, JAVON ([id number]), video editor JENNY BOWIE ([id number]) on 11/17/2024 8:24:15 AM Referred By: ASHLEY Confirmed By: JAVON HARRIS MD 11/17/24 0824 Date Javon Harris MD CC: Dr. Faizan Mckenzie MD; Dr. Corbin Vidal DO; Dr. Uriel Ramirez DO Signed Normal [facility] Absolute neutrophil countOrd ered By: ED PROVIDER on 11-16-2024 Neutrophils (Bld) [#/Vol] 6.4 10*3/uL 2.0-7.7 [facility] Anion gap in Serum or Plasma Ordered By: Uriel Ramirez on 11-16-2024 Anion gap [Moles/Vol] 15 mmol/L 5-15 [facility] BUN/creatinine ratioOrdered By: Uriel Ramirez on 11-16-2024 Urea nitrogen/Creatinine [Mass ratio] 17.5 mg/mg 10-20 [facility] Basophil percentageOrdered B y: ED PROVIDER on 11-16-2024 Basophils/100 WBC (Bld) 0.4 % 0-1 [facility] Bilirubin, totalOrdered By: Uriel Ashley on 11-16-2024 Bilirubin [Mass/Vol] 0.44 mg/dL 0.00-1.30 [facility] CBC W/Diff, Automatedon 10-22 Absolute Lymph 1.75 X10 3/uL Normal 0.83-4.51 [facility] Comment on above: Performed By: #### L 500.4050, L100.0100 #### [facility] [address] [place], [address] Absolute Neut 6.4 X10 3/uL Normal 2.0-7.7 [facility] Comment on above: Performed By: #### L 500.4050, L100.0100 #### [facility] [address] [place], [address] Basophils/100 WBC (Bld) 0.4 % Normal 0-1 [facility] Comment on above: Performed By: #### L 500.4050, L100.0100 #### [facility] [address] [place], [address] Eosinophils/100 WBC (Bld) 0.4 % Normal 0-5 [facility] Comment on above: Performed By: #### L 500.4050, L100.0100 #### [facility] [address] [place], [address] Erythrocyte distribution width (RBC) [Ratio] 12.9 % Normal 11.6-14.6 [facility] Comment on above: Performed By: #### L 500.4050, L100.0100 #### [facility] [address] [place], [address] Hematocrit (Bld) [Volume fraction] 34.3 % Low 37-47 [facility] Comment on above: Performed By: #### L 500.4050, L100.0100 #### [facility] [address] [place], [address] Hemoglobin (Bld) [Mass/Vol] 11.8 g/dL Low 12.0-15.0 [facility] Comment on above: Performed By: #### L 500.4050, L100.0100 #### [facility] [address] [place], [address] IG% 0.400 Normal 0.0-0.9 [facility] Comment on above: Result Comment: IG% - Immature Granulocytes (promyelocytes, myelocytes and metamyelocytes) > 1% indicates that a LEFT SHIFT is Present. Performed By: #### L 500.4050, L100.0100 #### [facility] [address] [place], [address] Lymphocytes/100 WBC (Bld) 19.5 % Normal 19-41 [facility] Comment on above: Performed By: #### L 500.4050, L100.0100 #### [facility] [address] [place], [address] MCH (RBC) [Entitic mass] 30.9 pg Normal 27.0-32.0 [facility] Comment on above: Performed By: #### L 500.4050, L100.0100 #### [facility] [address] [place], [address] MCHC (RBC) [Mass/Vol] 34.4 g/dL Normal 32-36 [facility] Comment on above: Performed By: #### L 500.4050, L100.0100 #### [facility] [address] [place], [address] MCV (RBC) [Entitic vol] 89.8 fL Normal 81-99 [facility] Comment on above: Performed By: #### L 500.4050, L100.0100 #### [facility] [address] [place], [address] Monocytes/100 WBC (Bld) 8.4 % Normal 0-10 [facility] Comment on above: Performed By: #### L 500.4050, L100.0100 #### [facility] [address] [place], [address] Neutrophils/100 WBC (Bld) 70.9 % High 47-70 [facility] Comment on above: Performed By: #### L 500.4050, L100.0100 #### [facility] [address] [place], [address] Nucleated RBC (Bld) [#/Vol] 0 10*3/uL Normal 0-5 [facility] Comment on above: Performed By: #### L 500.4050, L100.0100 #### [facility] [address] [place], [address] Platelet mean volume (Bld) [Entitic vol] 9.3 fL Normal 6.2-12.0 [facility] Comment on above: Performed By: #### L 500.4050, L100.0100 #### [facility] [address] [place], [address] Platelets (Bld) [#/Vol] 433 10*3/uL Normal 150-450 [facility] Comment on above: Performed By: #### L 500.4050, L100.0100 #### [facility] [address] [place], [address] RBC (Bld) [#/Vol] 3.82 10*6/uL Low 4.2-5.4 [facility] Comment on above: Performed By: #### L 500.4050, L100.0100 #### [facility] [address] [place], [address] RDW SD 42.4 fl Normal 35.1-43.9 [facility] Comment on above: Performed By: #### L 500.4050, L100.0100 #### [facility] [address] [place], [address] WBC (Bld) [#/Vol] 9.0 10*3/uL Normal 4.4-11.0 [facility] Comment on above: Performed By: #### L 500.4050, L100.0100 #### [facility] [address] [place], [address] CBC-Complete Blood Cnt No Di ffon 11-16-2024 HCT Normal 37-47 [facility] Comment on above: Result Comment: Canc elled via OM: Duplicate Order Performed By: #### L 300.8000 #### [facility] [address] [place], [address] HGB Normal 12.0-15.0 [facility] Comment on above: Result Comment: Canc elled via OM: Duplicate Order Performed By: #### L 300.8000 #### [facility] [address] [place], [address] MCH Normal 27.0-32.0 [facility] Comment on above: Result Comment: Canc elled via OM: Duplicate Order Performed By: #### L 300.8000 #### [facility] [address] [place], [address] MCHC Normal 32-36 [facility] Comment on above: Result Comment: Canc elled via OM: Duplicate Order Performed By: #### L 300.8000 #### [facility] [address] [place], [address] MCV Normal 81-99 [facility] Comment on above: Result Comment: Canc elled via OM: Duplicate Order Performed By: #### L 300.8000 #### [facility] [address] [place], [address] PLT Normal 150-450 [facility] Comment on above: Result Comment: Canc elled via OM: Duplicate Order Performed By: #### L 300.8000 #### [facility] [address] [place], [address] RBC Normal 4.2-5.4 [facility] Comment on above: Result Comment: Canc elled via OM: Duplicate Order Performed By: #### L 300.8000 #### [facility] [address] [place], [address] RDW CV Normal 11.6-14.6 [facility] Comment on above: Result Comment: Canc elled via OM: Duplicate Order Performed By: #### L 300.8000 #### [facility] [address] [place], [address] RDW SD Normal 35.1-43.9 [facility] Comment on above: Result Comment: Canc elled via OM: Duplicate Order Performed By: #### L 300.8000 #### [facility] [address] [place], [address] WBC Normal 4.4-11.0 [facility] Comment on above: Result Comment: Canc elled via OM: Duplicate Order Performed By: #### L 300.8000 #### [facility] [address] [place], [address] CTA Chest W/WO Contraston CTA Chest W/WO Contrast [facility] Imaging Services [address] [place] [address] CTA Chest W/WO Contrast MR#: [id number] Acct: [id number] Name: REINA MALLOY Rep #: [id number] : 1960 F 64 From: Ivanna Plasencia MD PCP: Dr. Corbin Vidal, DO Status: REG ER Study: CTA Chest W/WO Contrast Date of Exam: 11/16/24 Exam# [id number] Ordering Dr: Uriel Ramirez DO PROCEDURE: CTA CHEST W/WO CONTRAST 11/16/2024 REASON FOR EXAM: RIGHT SIDED PLEURITIC PAIN RECENT SURGERY R/O PE TECHNIQUE: CTA axial imaging of the chest with intravenous contrast. Coronal and Sagittal reconstruction series were provided. 3D, 3D post processing, 3D reconstructions, Maximum intensity projection (MIPs) Volume rendering and Shaded surface rendering was provided. One or more dose reduction techniques were used (e.g., Automated exposure control, adjustment of the mA and/or kV according to patient size, use of iterative reconstruction technique). COMPARISON: None. FINDINGS: Lungs/pleura: There are large consolidative airspace opacities in the lung bases bilaterally.Trace bilateral pleural effusions are present. Pulmonary arteries: Lobar, segmental and subsegmental PE are present in bilateral lower lobes. There is a segmental pulmonary embolus in the right middle lobe. Cardiovascular: The heart is normal in size.The RV/LV ratio is increased measuring 1.16.The aorta is unremarkable. Pericardium: No effusion. Mediastinum: Unremarkable. Lymph nodes: No lymph node enlargement by CT size criteria. Bones: No acute osseous abnormality. Soft tissues: Unremarkable. Upper abdomen: Hepatic steatosis is present. CT/CTA Chest W/WO Contrast IMPRESSION: 1. Lobar, segmental and subsegmental pulmonary emboli involving the lower lobes bilaterally, as well as a small segmental pulmonary embolus in the right middle lobe. 2. Right heart strain present with an increased RV/LV ratio. 3. Bibasilar consolidative airspace opacities, possibly due to pulmonary edema, pneumonia or pulmonary infarct. 4. Trace bilateral pleural effusions. Findings discussed with Dr. Ramirez at 1545 hours on 11/16/2024 Reading Location: [facility] CC: Dr. Corbin Vidal DO; Dr. Uriel Ramirez DO Swing Ride Operator: Signed Normal [facility] Carbon dioxide, total [Moles /volume] in Central venous bloodOrdered By: Uriel Ramirez on 11-16-2024 CO2 [Moles/Vol] 21.2 mmol/L 21.0-32.0 [facility] Chloride assayOrdered By: Mabel artie Ramirez on 11-16-2024 Chloride [Moles/Vol] 103 mmol/L 98-108 [facility] Comprehensive Metabolic Prof ilon 11-16-2024 Albumin [Mass/Vol] 3.5 g/dL Normal 3.4-4.8 [facility] Comment on above: Performed By: #### L 500.4050, L100.0100 #### [facility] [address] [place], [address] Albumin/Globulin [Mass ratio] 0.8 {ratio} Low 0.9-2.4 [facility] Comment on above: Performed By: #### L 500.4050, L100.0100 #### [facility] [address] [place], [address] ALK PHOS 101 U/L Normal 35-104 [facility] Comment on above: Performed By: #### L 500.4050, L100.0100 #### [facility] [address] [place], [address] ALT [Catalytic activity/Vol] 29 U/L Normal <=34 [facility] Comment on above: Performed By: #### L 500.4050, L100.0100 #### [facility] [address] [place], [address] AST [Catalytic activity/Vol] 28 U/L Normal <=31 [facility] Comment on above: Performed By: #### L 500.4050, L100.0100 #### [facility] [address] [place], [address] Bilirubin [Mass/Vol] 0.44 mg/dL Normal 0.00-1.30 [facility] Comment on above: Performed By: #### L 500.4050, L100.0100 #### [facility] [address] [place], [address] BUN/CRE 17.5 RATIO Normal 10-20 [facility] Comment on above: Performed By: #### L 500.4050, L100.0100 #### [facility] [address] [place], [address] Calcium [Mass/Vol] 9.4 mg/dL Normal 7.6-11.0 [facility] Comment on above: Performed By: #### L 500.4050, L100.0100 #### [facility] [address] [place], [address] Chloride [Moles/Vol] 103 mmol/L Normal 98-108 [facility] Comment on above: Performed By: #### L 500.4050, L100.0100 #### [facility] [address] [place], [address] CO2 [Moles/Vol] 21.2 mmol/L Normal 21.0-32.0 [facility] Comment on above: Performed By: #### L 500.4050, L100.0100 #### [facility] [address] [place], [address] Creatinine [Mass/Vol] 0.69 mg/dL Low 0.70-1.20 [facility] Comment on above: Performed By: #### L 500.4050, L100.0100 #### [facility] [address] [place], [address] GAP 15 Normal 5-15 [facility] Comment on above: Performed By: #### L 500.4050, L100.0100 #### [facility] [address] [place], [address] GFR/1.73 sq M.predicted among non-blacks MDRD (S/P/Bld) [Vol rate/Area] 98 mL/min/{1.73_m2} Normal >60 [facility] Comment on above: Result Comment: mL/m in/1.73m2 CKD-EPI Creatinine Equation (2020) Performed By: #### L 500.4050, L100.0100 #### [facility] [address] [place], [address] Globulin (S) [Mass/Vol] 4.3 g/dL High 2.2-4.2 [facility] Comment on above: Performed By: #### L 500.4050, L100.0100 #### [facility] [address] [place], [address] Glucose [Mass/Vol] 94 mg/dL Normal 70-99 [facility] Comment on above: Performed By: #### L 500.4050, L100.0100 #### [facility] [address] [place], [address] Potassium [Moles/Vol] 3.9 mmol/L Normal 3.3-5.1 [facility] Comment on above: Result Comment: Hemo lysis present, Results??could be affected. ?? Performed By: #### L 500.4050, L100.0100 #### [facility] [address] [place], [address] Sodium [Moles/Vol] 139 mmol/L Normal 133-145 [facility] Comment on above: Performed By: #### L 500.4050, L100.0100 #### [facility] [address] [place], [address] T PROT 7.8 g/dL Normal 5.9-8.4 [facility] Comment on above: Performed By: #### L 500.4050, L100.0100 #### [facility] [address] [place], [address] Urea nitrogen [Mass/Vol] 12 mg/dL Normal 4-19 [facility] Comment on above: Performed By: #### L 500.4050, L100.0100 #### [facility] [address] [place], [address] Emergency Department Summary on 11-16-2024 Emergency Department Summary [facility] Medical Records Department [address] [place] [address] Emergency Department Summary 11/16/24 MR#: [id number] Acct: [id number] Name: REINA MALLOY Rep #: [id number] : 1960 64 From: Uriel Ramirez DO PCP: Dr. Corbin Vidal, DO Status:REG ER Location: ED HPI History of Present Illness Chief Complaint: Back PFSH PFSH Home Medications ???Medication ???Instructions ???Recorded ???Last Taken ???Type amlodipine 5 mg tablet 5 mg PO DAILY 11/16/24 11/16/24 Hi story losartan 50 mg tablet 50 mg PO DAILY 11/16/24 11/16/24 H istory pravastatin 40 mg tablet 40 mg PO QHS 11/16/24 11/15/24 His tory Allergy/AdvReac Type Severity Reaction Status Date / Time No Known Allergies Allergy Verified 11/16/24 14:07 Social History Smoking Status: Never smoker EXAM Physical Exam Const Vital Signs: 11/16/24 14:03 11/16/24 16:04 11/16/24 16:55 Temperature 97.5 F L 98.7 F Temperature Source Oral Pulse Rate 85 83 84 Respiratory Rate 14 19 H 25 H Blood Pressure 120/67 124/67 H 127/71 H Blood Pressure Mean 84 86 89 Pulse Ox 95 94 94 Oxygen Delivery Method Room Air Room Air MDM MDM MDM Narrative Medical decision making narrative: HISTORY OF PRESENT ILLNESS: 64-year-old female presents with concern for right mid upper back pain. She notes she had an abdominal surgery (colostomy) done 3 weeks ago in [place]. She notes last evening the pain started. She further states also last night she had right-sided back pain is located in the mid upper back along the inferior scapula. Is worse with a deep breath. Also no shortness of breath. Denies cough fever chills Patient denies any saddle anesthesia, urinary retention, bowel or bladder incontinence, lower extremity weakness, fever or IV drug use, no recent spinal manipulation or surgery, no recent urinary catheterization. The patient denies immobilization in the last 3 days, denies previous diagnosis of DVT or PE, hemoptysis, unilateral leg swelling or malignancy with treatment the last 6 months or palliative. No estrogen use noted. Does not recent surgery. REVIEW OF SYSTEMS: Pertinent positives: Back pain, right posterior rib pain, pleuritic pain Pertinent negatives: Syncope PHYSICAL EXAM: Nursing triage notes reviewed, Vital signs reviewed Constitutional: please see mdm HENT: MMM Eyes: Pupils equal round and reactive to light, Extraocular muscles intact Neck: No stridor, no JVD, full neck ROM Lungs: Clear to auscultation, No wheezing or rales. No increased work of breathing, no conversational dyspnea, no accessory muscle use, no nasal flaring. No respiratory distress noted Heart: Regular rate and rhythm, No murmurs, No rubs and No gallops, 2+ distal pulses (radial, femoral, posterior tibial) in all extremities Abdomen: Soft, there is no tenderness, rigidity, rebound or guarding, no obvious peritoneal signs, no palpable pulsatile abdominal masses, no auscultated abdominal bruit : No CVAT Extremities: No edema Back: No rashes noted. No midline step-offs deformities to the CT or L-spine. There is some slight tenderness palpation the infrascapular region Neuro: intact sensation L1-S1 dermatomal distributions. Intact 5/5 strength in hip flexion (T12- L3). Knee extension (L2-L4). Ankle dorsiflexion (L4-L5). Ankle plantar flexion (S1). Great toe extension (L5). 2+ patellar and Achilles DTRs. Skin: No rash or lesions noted MEDICAL DECISION MAKING: Chief Complaint: Back pain External records reviewed: No prior imaging studies noted in [facility]'s EMR Factors affecting care: History of hypertension, hyperlipidemia, history of colostomy Social determinants of health: none History obtained from others: none Consults: Internal medicine (Dr. Parker) discussed admitting to PCU as a observation admission. MDM Narrative: The patient was initially hemodynamically stable, afebrile and nontoxic-appearing. Exam without focal cardiopulmonary abnormalities. No signs of focal lower extremity neurologic deficits. No mid line step-offs deformities. No sign of trauma or rashes. I considered the following differential diagnosis: Musculoskeletal back pain, nephrolithiasis, pyelonephritis, postsurgical abnormality, PE There is no CVA tenderness to suggest nephrolithiasis or pyelonephritis Triage labs were placed including CBC, CMP and urinalysis I obtained a broad lab and imaging workup to further elucidate etiology of patient's complaints. Given recent surgery, pleuritic pain and shortness of breath I was most concerned about a pulmonary embolism. ALL IMAGES (IF OBTAINED) HAVE BEEN PERSONALLY REVIEWED AND INTERPRETED BY MYSELF. EKG with normal sinus rhythm rate of 90, normal axis, normal intervals, QTc 440, no sign of STEMI, (more content not included)... Normal [facility] Eosinophil percentageOrdered By: ED PROVIDER on 11-16-2024 Eosinophils/100 WBC (Bld) 0.4 % 0-5 [facility] Erythrocyte distribution wid th ratioOrdered By: ED PROVIDER on 11-16-2024 Erythrocyte distribution width (RBC) [Ratio] 12.9 % 11.6-14.6 [facility] Erythrocyte distribution wid th standard deviationOrdered By: ED PROVIDER on 11-16-2024 Erythrocyte distribution width (RBC) [Entitic vol] 42.4 fL 35.1-43.9 [facility] GFR/1.73 sq M.predicted jeannette g non-blacks MDRD (S/P/Bld) [Vol rate/Area]Ordered By: Uriel Ramirez on 11-16-2024 Estimated GFR (MDRD) Non-Af Amer 98 >60 [facility] Comment on above: mL/min/1.73m2 CKD-EP I Creatinine Equation (2020) H AND P Exam - [facility] 11-16-2024 H&P Exam - Hospitalist [facility] Medical Records Department [address] [place] [address] H P Exam - Hospitalist 11/16/24 1658 MR#: [id number] Acct: [id number] Name: REINA MALLOY Rep #: [id number] : 1960 64 From: Melania Parker MD PCP: Dr. Corbin Vidal, DO Status:REG ER Location: ED HPI - General General Date of Admission: 11/16/24 Date of Service: 11/16/24 Chief Complaint: Pleuritic pain, difficulty taking deep breaths HPI Narrative REINA MELLISSA, is a 64-year-old female with history of hypertension hyperlipidemia and recent perforated diverticulum in [place] requiring colostomy 3 weeks ago presented [facility] ED 11/16/2024 due to back pain. She was vitally stable and labs unremarkable aside from a hemoglobin of 11.8 however upon further discussion with the ED provider patient did report pain was worse with inspiration and felt deeper than a superficial back pain. CTA was obtained which showed multiple bilateral pulmonary emboli with concern for right heart strain and bibasilar consolidative opacities which were possibly due to pulmonary edema, pneumonia, or pulmonary infarct as well as trace bilateral pleural effusions. BNP and troponin within normal limits however given this concerns and the multiple emboli hospitalist contacted to admit under observation on blood thinners. Patient evaluated at bedside. She reports that she had been in her usual health until last night when she suddenly had a deep back pain with difficulty taking a deep breath, reports today it was not improving prompting her to come to the ED, denies any abdominal pain or problems with her ostomy, reports a little bit of a dry cough/clearing of her throat if she gets a tickle but no productive cough, no fevers or chills. Patient denies any swelling in her legs or any other problems since she left [facility] Home Medications ???Medication ???Instructions ???Recorded ???Last Taken ???Type amlodipine 5 mg tablet 5 mg PO DAILY 11/16/24 11/16/24 Hi story losartan 50 mg tablet 50 mg PO DAILY 11/16/24 11/16/24 H istory pravastatin 40 mg tablet 40 mg PO QHS 11/16/24 11/15/24 His tory Allergy/AdvReac Type Severity Reaction Status Date / Time No Known Allergies Allergy Verified 11/16/24 14:07 Social History Smoking Status: Never smoker ROS ROS Narrative General: Denies fever/chills HENT: Denies headache, denies stuffy nose, denies sore throat EYES: Denies changes in vision Resp: Slight dry cough, difficulty taking a deep breath Cardiac: Denies chest pain GI: Denies abdominal pain, denies problem with ostomy, denies nausea/vomiting : Denies changes in urination Extremity: Denies swelling in her legs MSK: Denies weakness Neuro: Denies any numbness/tingling Heme: Denies any bleeding or bruising Skin: Denies rashes Psychiatric: No complaints voiced Vital Signs Vital Signs Vital Signs: 11/16/24 14:03 11/16/24 16:04 11/16/24 16:55 Temperature 97.5 F L 98.7 F Temperature Source Oral Pulse Rate 85 83 84 Respiratory Rate 14 19 H 25 H Blood Pressure 120/67 124/67 H 127/71 H Blood Pressure Mean 84 86 89 Pulse Ox 95 94 94 Oxygen Delivery Method Room Air Room Air Weight Weight: 89.2 kg Body Mass Index (BMI) 33.7 Physical Exam Narrative General: Alert, oriented, HEENT: Atraumatic, normocephalic Eyes: Anicteric, normal conjunctiva, extraocular movements grossly intact Neck: Supple Respiratory: Patient is slightly tachypneic as she has pain with taking a deep breath, patient diminished at the bases, too difficult for her to take a deep breath to have adequate auscultation of bases but no overt crackles, wheezes, rhonchi in the upper lung arteaga Cardiovascular: Regular rate and rhythm GI: Soft, nontender, nondistended Extremities: No edema Musculoskeletal: Moving all extremities Neuro: No overt focal neurological deficits Skin: No rashes appreciated Psych: Cooperative Results Lab / Micro Data 11/16/24 14:14 11/16/24 14:14 Labs: Laboratory Results - last 24 hr 11/16/24 14:14: WBC 9.0, RBC 3.82 L, Hgb 11.8 L, Hct 34.3 L, MCV 89.8, MCH 30.9, MCHC 34.4, RDW Std Deviation 42.4, RDW Coeff of Sea 12.9, Plt Count 433, MPV 9.3, Immature Gran % (Auto) 0.400, Neut % (Auto) 70.9 H, Lymph % (Auto) 19.5, Hoke % (Auto) 8.4, Eos % (Auto) 0.4, Baso % (Auto) 0.4, Absolute Neuts (auto) 6.4, Absolute Lymphs (auto) 1.75, Nucleated RBC % 0, Sodium 139, Potassium 3.9, Chloride 103, Carbon Dioxide 21.2, Anion Gap 15, BUN 12, Creatinine 0.69 L, Est GFR (MDRD) Non-Af 98, BUN/Creatinine Ratio 17.5, Glucose 94, Calcium 9.4, Total Bilirubin 0.44, AST 28, ALT 29, Alkaline Phosphatase 101, Troponin T High Sens < 6, NT pro BNP II < 36, Total Protein 7.8, Albumin 3.5, Globulin 4.3 H, Albumin/Globulin Ratio 0.8 L, Lipase 22 Imaging R (more content not included)... Normal [facility] Hematocrit Auto (Bld) [Volum e fraction]Ordered By: ED PROVIDER on 11-16-2024 Hematocrit (Bld) [Volume fraction] 34.3 % Low 37-47 [facility] Hemoglobin measurementOrdere d By: ED PROVIDER on 11-16-2024 Hemoglobin (Bld) [Mass/Vol] 11.8 g/dL Low 12.0-15.0 [facility] Immature granulocytes/100 WB C Auto (Bld)Ordered By: ED PROVIDER on 11-16-2024 Immature granulocytes/100 WBC (Bld) 0.400 % 0.0-0.9 [facility] Comment on above: IG% - Immature Granu locytes (promyelocytes, myelocytes and metamyelocytes) > 1% indicates that a LEFT SHIFT is Present. International normalized rat io (INR) calculationOrdered By: Uriel Ramirez on 11-16-2024 INR Coag (Bld) [Relative time] 1.3 {INR} [facility] L499.0042on 11-16-2024 Trop T High Sen 9 ng/L Normal <=14 [facility] Comment on above: Performed By: #### L 499.0042 #### [facility] [address] [place], [place], [address] L499.0043on 11-16-2024 Trop T High Sen 7 ng/L Normal <=14 [facility] Comment on above: Performed By: #### L 499.0043 #### [facility] [address] [place], [address] L501.4021on 11-16-2024 Trop T High Sen < 6 Normal <=14 [facility] Comment on above: Performed By: #### L 300.8000 #### [facility] [address] [place], [address] L503.7505on 11-16-2024 proBNP < 36 Normal <=900 [facility] Comment on above: Result Comment: Hear t Failure Unlikely: < 300 pg/mL Heart Failure Likely < 50 Years: > 450 pg/mL 50-75 Years: > 900 pg/mL >75 Years: > 1800 pg/mL Performed By: #### L 300.8000 #### [facility] [address] [place], [place], [address] Laboratory - Chemistry and C hemistry - challengeOrdered By: Uriel Ramirez on 11-16-2024 AST [Catalytic activity/Vol] 28 U/L <32 [facility] Lipaseon 11-16-2024 Lipase [Catalytic activity/Vol] 22 U/L Normal 13-75 [facility] Comment on above: Result Comment: Gabriela banks note: LIPASE revised reference range effective 22. New Lipase methodology. Expected to produce lower values than the previous assay method. NEW Reference Range: 13 - 75 U/L Performed By: #### L 300.8000 #### [facility] [address] [place], [place], [address] Lipase measurementOrdered By : Uriel Ramirez on 11-16-2024 Lipase [Catalytic activity/Vol] 22 U/L 13-75 [facility] Comment on above: Please note:LIPASE r evised reference range effective 22. New Lipase methodology. Expected to produce lower values than the previous assay method. NEW Reference Range: 13 - 75 U/L Lymphocytes Auto (Unsp spec) [#/Vol]Ordered By: ED PROVIDER on 11-16-2024 Lymphocytes (Bld) [#/Vol] 1.75 10*3/uL 0.83-4.51 [facility] Lymphocytes/100 WBC Auto (Un sp spec)Ordered By: ED PROVIDER on 11-16-2024 Lymphocytes/100 WBC (Bld) 19.5 % 19-41 [facility] MCV (mean corpuscular volume ) determinationOrdered By: ED PROVIDER on 11-16-2024 MCV (RBC) [Entitic vol] 89.8 fL 81-99 [facility] Mean corpuscular hemoglobin (MCH) determinationOrdered By: ED PROVIDER on 11-16-2024 MCH (RBC) [Entitic mass] 30.9 pg 27.0-32.0 [facility] Mean corpuscular hemoglobin concentration (MCHC) determinationOrdered By: ED PROVIDER on 11-16-2024 MCHC (RBC) [Mass/Vol] 34.4 g/dL 32-36 [facility] Mean platelet volume determi nationOrdered By: ED PROVIDER on 11-16-2024 Platelet mean volume (Bld) [Entitic vol] 9.3 fL 6.2-12.0 [facility] Monocyte percentageOrdered B y: ED PROVIDER on 11-16-2024 Monocytes/100 WBC (Bld) 8.4 % 0-10 [facility] Neutrophil percentageOrdered By: ED PROVIDER on 11-16-2024 Neutrophils/100 WBC (Bld) 70.9 % High 47-70 [facility] No Panel InformationOrdered By: Uriel Ramirez on 11-16-2024 [id number] Natriuretic Peptide II < 36 pg/mL <900 [facility] Comment on above: Heart Failure Unlike ly: < 300 pg/mLHeart Failure Likely< 50 Years: > 450 pg/mL50-75 Years: > 900 pg/mL>75 Years: > 1800 pg/mL Troponin T High Sensitivity < 6 ng/L <14 [facility] Nucleated red blood cell per centageOrdered By: ED PROVIDER on 11-16-2024 Nucleated RBC/100 WBC (Bld) [Ratio] 0 % 0-5 [facility] Partial Thromboplast Timeon 11-16-2024 aPTT Coag (Bld) [Time] 34.6 s Normal 24.1-36.2 [facility] Comment on above: Performed By: #### L 300.4310, L300.3900 #### [facility] [place], [address] Platelet countOrdered By: ED PROVIDER on 11-16-2024 Platelets (Bld) [#/Vol] 433 10*3/uL 150-450 [facility] Potassium (Unsp spec) [Mass/ Vol]Ordered By: Uriel Ramirez on 11-16-2024 Potassium [Moles/Vol] 3.9 mmol/L 3.3-5.1 [facility] Comment on above: Hemolysis present, R esults could be affected. Prothrombin Time w/INRon INR Coag (PPP) [Relative time] 1.3 {INR} Normal [facility] Comment on above: Performed By: #### L 300.4310, L300.3900 #### [facility] [address] [place], [address] PT Coag (PPP) [Time] 16.2 s High 11.7-14.9 [facility] Comment on above: Performed By: #### L 300.4310, L300.3900 #### [facility] [address] [place], [address] Prothrombin timeOrdered By: Uriel Ramirez on 11-16-2024 PT Coag (PPP) [Time] 16.2 s High 11.7-14.9 [facility] RBC Auto (Bld) [#/Vol]Ordere d By: ED PROVIDER on 11-16-2024 RBC (Bld) [#/Vol] 3.82 10*6/uL Low 4.2-5.4 [facility] Serum creatinine measurement (mass/volume)Ordered By: Uriel Ramirez on 11-16-2024 Creatinine [Mass/Vol] 0.69 mg/dL Low 0.70-1.20 [facility] Serum globulin measurementOr dered By: Uriel Ramirez on 11-16-2024 Globulin (S) [Mass/Vol] 4.3 g/dL High 2.2-4.2 [facility] Serum glucose measurement (m ass/volume)Ordered By: Uriel Ramirez on 11-16-2024 Glucose [Mass/Vol] 94 mg/dL 70-99 [facility] Serum or plasma alanine ribeiro otransferase (ALT) measurementOrdered By: Uriel Ramirez on 11-16-2024 ALT [Catalytic activity/Vol] 29 U/L <35 [facility] Serum or plasma albumin galileo urement (mass/volume)Ordered By: Uriel Ramirez on 11-16-2024 Albumin [Mass/Vol] 3.5 g/dL 3.4-4.8 [facility] Serum or plasma albumin/glob ulin mass ratioOrdered By: Uriel Ramirez on 11-16-2024 Albumin/Globulin [Mass ratio] 0.8 {ratio} Low 0.9-2.4 [facility] Serum or plasma alkaline tata sphatase measurementOrdered By: Uriel Ramirez on 11-16-2024 ALP [Catalytic activity/Vol] 101 U/L 35-104 [facility] Serum or plasma calcium galileo urement (mass/volume)Ordered By: Uriel Ramirez on 11-16-2024 Calcium [Mass/Vol] 9.4 mg/dL 7.6-11.0 [facility] Serum or plasma urea nitroge n measurement (mass/volume)Ordered By: Uriel Ramirez on 11-16-2024 Urea nitrogen [Mass/Vol] 12 mg/dL 4-19 [facility] Sodium levelOrdered By: Lara Ramirez on 11-16-2024 Sodium [Moles/Vol] 139 mmol/L 133-145 [facility] Total proteinOrdered By: Jorge Ramirez on 11-16-2024 Protein [Mass/Vol] 7.8 g/dL 5.9-8.4 [facility] Troponin T.cardiac High sens itivity method [Mass/Vol]Ordered By: Uriel Ramirez on 11-16-2024 Troponin T High Sensitivity 4 Hour 7 ng/L <14 [facility] Troponin T High Sensitivity 2 Hour 9 ng/L <14 [facility] Troponin T.cardiac [Mass/vol ume] in Serum or Plasma by High sensitivity methodOrdered By: Uriel Ramirez on 11-16-2024 Troponin T.cardiac High sensitivity method [Mass/Vol] 7 ng/L <14 [facility] Troponin T.cardiac High sensitivity method [Mass/Vol] 9 ng/L <14 [facility] Urinalysis, Completeon 11-16 BACTERIA Normal None Seen [facility] Comment on above: Order Comment: SENT LABEL TO PCU TO COLLECTCOLLECTOR TO SPECIFY Result Comment: STUART ENT DISCHARGED. Performed By: #### L 300.8000 #### [facility] [address] [place], [address] BILIRUBIN URINE Normal Negative [facility] Comment on above: Order Comment: SENT LABEL TO PCU TO COLLECTCOLLECTOR TO SPECIFY Result Comment: STUART ENT DISCHARGED. Performed By: #### L 300.8000 #### [facility] [address] [place], [address] Clarity (U) Normal Clear [facility] Comment on above: Order Comment: SENT LABEL TO PCU TO COLLECTCOLLECTOR TO SPECIFY Result Comment: STUART ENT DISCHARGED. Performed By: #### L 300.8000 #### [facility] [address] [place], [address] Color (U) Normal Yellow [facility] Comment on above: Order Comment: SENT LABEL TO PCU TO COLLECTCOLLECTOR TO SPECIFY Result Comment: STUART ENT DISCHARGED. Performed By: #### L 300.8000 #### [facility] [address] [place], [address] EPI,SQUAMOUS Normal 5-10 [facility] Comment on above: Order Comment: SENT LABEL TO PCU TO COLLECTCOLLECTOR TO SPECIFY Result Comment: STUART ENT DISCHARGED. Performed By: #### L 300.8000 #### [facility] [address] [place], [address] GLUCOSE, UR Normal Normal [facility] Comment on above: Order Comment: SENT LABEL TO PCU TO COLLECTCOLLECTOR TO SPECIFY Result Comment: STUART ENT DISCHARGED. Performed By: #### L 300.8000 #### [facility] [address] [place], [address] KETONE UR Normal Negative [facility] Comment on above: Order Comment: SENT LABEL TO PCU TO COLLECTCOLLECTOR TO SPECIFY Result Comment: STUART ENT DISCHARGED. Performed By: #### L 300.8000 #### [facility] [address] [place], [address] LEUK ESTERASE Normal Negative [facility] Comment on above: Order Comment: SENT LABEL TO PCU TO COLLECTCOLLECTOR TO SPECIFY Result Comment: STUART ENT DISCHARGED. Performed By: #### L 300.8000 #### [facility] [address] [place], [address] Mucus Ql (Urine sed) Normal [facility] Comment on above: Order Comment: SENT LABEL TO PCU TO COLLECTCOLLECTOR TO SPECIFY Result Comment: STUART ENT DISCHARGED. Performed By: #### L 300.8000 #### [facility] [address] [place], [address] Nitrite Ql (U) Normal Negative [facility] Comment on above: Order Comment: SENT LABEL TO PCU TO COLLECTCOLLECTOR TO SPECIFY Result Comment: STUART ENT DISCHARGED. Performed By: #### L 300.8000 #### [facility] [address] [place], [address] OCCULT BLOOD-UR Normal Negative [facility] Comment on above: Order Comment: SENT LABEL TO PCU TO COLLECTCOLLECTOR TO SPECIFY Result Comment: STUART ENT DISCHARGED. Performed By: #### L 300.8000 #### [facility] [address] [place], [address] pH UR Normal 5.0 - 8.0 [facility] Comment on above: Order Comment: SENT LABEL TO PCU TO COLLECTCOLLECTOR TO SPECIFY Result Comment: STUART ENT DISCHARGED. Performed By: #### L 300.8000 #### [facility] [address] [place], [address] PROT DIPSTX Normal Negative [facility] Comment on above: Order Comment: SENT LABEL TO PCU TO COLLECTCOLLECTOR TO SPECIFY Result Comment: STUART ENT DISCHARGED. Performed By: #### L 300.8000 #### [facility] [address] [place], [address] RBC Normal 0-5 [facility] Comment on above: Order Comment: SENT LABEL TO PCU TO COLLECTCOLLECTOR TO SPECIFY Result Comment: STUART ENT DISCHARGED. Performed By: #### L 300.8000 #### [facility] [address] [place], [address] SP.GR. DIPSTX Normal 1.002-1.030 [facility] Comment on above: Order Comment: SENT LABEL TO PCU TO COLLECTCOLLECTOR TO SPECIFY Result Comment: STUART ENT DISCHARGED. Performed By: #### L 300.8000 #### [facility] [address] [place], [address] UR Preservative Normal [facility] Comment on above: Order Comment: SENT LABEL TO PCU TO COLLECTCOLLECTOR TO SPECIFY Result Comment: STUART ENT DISCHARGED. Performed By: #### L 300.8000 #### [facility] [address] [place], [address] UROBILI Normal Normal [facility] Comment on above: Order Comment: SENT LABEL TO PCU TO COLLECTCOLLECTOR TO SPECIFY Result Comment: STUART ENT DISCHARGED. Performed By: #### L 300.8000 #### [facility] [address] [place], [address] WBC Normal 0-5 [facility] Comment on above: Order Comment: SENT LABEL TO PCU TO COLLECTCOLLECTOR TO SPECIFY Result Comment: STUART ENT DISCHARGED. Performed By: #### L 300.8000 #### [facility] [address] [place], [address] White blood cell (WBC) count Ordered By: ED PROVIDER on 11-16-2024 WBC (Bld) [#/Vol] 9.0 10*3/uL 4.4-11.0 [facility] aPTT Coag (PPP) [Time]Ordere d By: Uriel Ramirez on 11-16-2024 aPTT Coag (Bld) [Time] 34.6 s 24.1-36.2 [facility] Vital Signs Date Time Vital Sign Value Performing Clinician García muñoz 04-16-2025 11:15-0400 Diastolic blood pressure 70 mm[Hg] Anastacio Cisneros MD Work Phone: [facility] 04-16-2025 11:15-0400 Heart rate 62 /min Anastacio Cisneros MD Work Phone: [facility] 04-16-2025 11:15-0400 Respiratory rate 13 /min Anastacio Cisneros MD Work Phone: [facility] 04-16-2025 11:15-0400 SaO2% (BldA) [Mass fraction] 100 % Anastacio Cisneros MD Work Phone: [facility] 04-16-2025 11:15-0400 Systolic blood pressure 134 mm[Hg] Anastacio Cisneros MD Work Phone: [facility] 04-16-2025 10:45-0400 Body temperature 97.7 [degF] Anastacio Cisneros MD Work Phone: [facility] 02-15-2025 12:46-0400 Body height 162.[address] Corbin Vidal DO Work Phone: [facility] 02-15-2025 12:46-0400 Body mass index (BMI) [Ratio] 34.3 kg/m2 Dr. Corbin Vidal DO Work Phone: [facility] 02-15-2025 12:46-0400 Body temperature 96.9 [degF] Dr. Corbin Vidal DO Work Phone: [facility] 02-15-2025 12:46-0400 Body weight 90.[address] Corbin Vidal DO Work Phone: [facility] 02-15-2025 12:46-0400 Diastolic blood pressure 69 mm[Hg] Dr. Corbin Vidal DO Work Phone: [facility] 02-15-2025 12:46-0400 Heart rate 77 /min Dr. Corbin Vidal DO Work Phone: [facility] 02-15-2025 12:46-0400 Respiratory rate 16 /min Dr. Corbin Vidal DO Work Phone: [facility] 02-15-2025 12:46-0400 SaO2% (BldA) [Mass fraction] 97 % Dr. Corbin Vidal DO Work Phone: 3(361)784-939309 [address] 02-15-2025 12:46-0400 Systolic blood pressure 118 mm[Hg] Dr. Corbin Vidal DO Work Phone: 9(949)550-843909 [address] 02-01-2025 15:03-0400 Body height 162.[address] Corbin Vidal DO Work Phone: 8(210)770-267372 [place] [address] 02-01-2025 14:58-0400 Body mass index (BMI) [Ratio] 34.3 kg/m2 Dr. Corbin Vidal DO Work Phone: 4(088)358-402572 [place] [address] 02-01-2025 14:58-0400 Body temperature 98.9 [degF] Dr. Corbin Vidal DO Work Phone: 2(474)101-004272 [place] [address] 02-01-2025 14:58-0400 Body weight 90.[address] Corbin Vidal DO Work Phone: 3(602)274-364309 [address] 02-01-2025 14:58-0400 Diastolic blood pressure 66 mm[Hg] Dr. oCrbin Vidal DO Work Phone: 0(527)743-932809 [address] 02-01-2025 14:58-0400 Heart rate 74 /min Dr. Corbin Vidal DO Work Phone: 7(950)329-376109 [address] 02-01-2025 14:58-0400 Respiratory rate 18 /min Dr. Corbin Vidal DO Work Phone: 8(628)298-046509 [address] 02-01-2025 14:58-0400 SaO2% (BldA) [Mass fraction] 97 % Dr. Corbin Vidal DO Work Phone: 5(417)013-031509 [address] 02-01-2025 14:58-0400 Systolic blood pressure 105 mm[Hg] Dr. Corbin Vidal DO Work Phone: 4(798)788-732409 [address] 01-31-2025 11:08-0400 Body height 160 cm Anastacio Cisneros MD Work Phone: [facility] 01-31-2025 11:08-0400 Body mass index (BMI) [Ratio] 34.37 kg/m2 Anastacio Cisneros MD Work Phone: [facility] 01-31-2025 11:08-0400 Body weight 88 kg Anastacio Cisneros MD Work Phone: [facility] 01-31-2025 11:08-0400 Diastolic blood pressure 82 mm[Hg] Anastacio Cisneros MD Work Phone: [facility] 01-31-2025 11:08-0400 Heart rate 64 /min Anastacio Cisneros MD Work Phone: [facility] 01-31-2025 11:08-0400 Systolic blood pressure 123 mm[Hg] Anastacio Cisneros MD Work Phone: [facility] 01-03-2025 11:26-0400 Body height 160 cm Anastacio Cisneros MD Work Phone: [facility] 01-03-2025 11:26-0400 Body mass index (BMI) [Ratio] 33.66 kg/m2 Anastacio Cisneros MD Work Phone: [facility] 01-03-2025 11:26-0400 Body weight 86.18 kg Anastacio Cisneros MD Work Phone: [facility] 01-03-2025 11:26-0400 Diastolic blood pressure 67 mm[Hg] Anastacio Cisneros MD Work Phone: [facility] 01-03-2025 11:26-0400 Heart rate 71 /min Anastacio Cisneros MD Work Phone: [facility] 01-03-2025 11:26-0400 Systolic blood pressure 106 mm[Hg] Anastacio Cisneros MD Work Phone: [facility] 12-29-2024 16:52-0400 Body temperature 96.9 [degF] Dr. Corbin Vidal DO Work Phone: [facility] 12-29-2024 16:52-0400 Diastolic blood pressure 74 mm[Hg] Dr. Corbin Vidal DO Work Phone: 4(570)725-058709 [address] 12-29-2024 16:52-0400 Heart rate 77 /min Dr. Corbin Vidal DO Work Phone: 9(564)424-438509 [address] 12-29-2024 16:52-0400 Respiratory rate 17 /min Dr. Corbin Vidal DO Work Phone: 8(043)130-981309 [address] 12-29-2024 16:52-0400 SaO2% (BldA) [Mass fraction] 99 % Dr. Corbin Vidal DO Work Phone: 2(114)194-656509 [address] 12-29-2024 16:52-0400 Systolic blood pressure 127 mm[Hg] Dr. Corbin Vidal DO Work Phone: 5(155)475-928972 [place] [address] 12-29-2024 09:24-0400 Body height 162.[address] Corbin Vidal DO Work Phone: 0(793)248-778672 [place] [address] 12-29-2024 09:24-0400 Body mass index (BMI) [Ratio] 33.6 kg/m2 Dr. Corbin Vidal DO Work Phone: 1(750)174-373409 [address] 12-29-2024 09:24-0400 Body weight 88.[address] Corbin Vidal DO Work Phone: 4(833)273-548609 [address] 11-17-2024 09:41-0400 Body temperature 97.9 [degF] Dr. Corbin Vidal DO Work Phone: 2(969)099-907909 [address] 11-17-2024 09:41-0400 Diastolic blood pressure 84 mm[Hg] Dr. Corbin Vidal DO Work Phone: 0(045)870-465309 [address] 11-17-2024 09:41-0400 Heart rate 76 /min Dr. Corbin Vidal DO Work Phone: 0(001)460-057309 [address] 11-17-2024 09:41-0400 Respiratory rate 17 /min Dr. Corbin Vidal DO Work Phone: 2(046)653-059009 [address] 11-17-2024 09:41-0400 SaO2% (BldA) [Mass fraction] 95 % Dr. Corbin Vidal DO Work Phone: 5(659)558-057272 [place] [address] 11-17-2024 09:41-0400 Systolic blood pressure 133 mm[Hg] Dr. Corbin Vidal DO Work Phone: 3(466)434-854472 [place] [address] 11-16-2024 17:59-0400 Body height 162.[address] Corbin Vidal DO Work Phone: 8(947)423-757772 [place] [address] 11-16-2024 17:59-0400 Body mass index (BMI) [Ratio] 33 kg/m2 Dr. Corbin Vidal DO Work Phone: 6(068)901-249972 [place] [address] 11-16-2024 17:59-0400 Body weight 87.[address] Corbin Vidal DO Work Phone: 0(204)029-768972 [place] [address] 11-16-2024 16:55-0400 Body temperature 98.7 [degF] Dr. Corbin Vidal DO Work Phone: 2(280)818-130872 [place] [address] 11-16-2024 16:55-0400 Diastolic blood pressure 71 mm[Hg] Dr. Corbin Vidal DO Work Phone: 7(216)486-237572 [place] [address] 11-16-2024 16:55-0400 Heart rate 84 /min Dr. Corbin Vidal DO Work Phone: 2(553)908-646472 [place] [address] 11-16-2024 16:55-0400 Respiratory rate 25 /min Dr. Corbin Vidal DO Work Phone: 7(506)790-808672 [place] [address] 11-16-2024 16:55-0400 SaO2% (BldA) [Mass fraction] 94 % Dr. Corbin Vidal DO Work Phone: 5(625)670-309872 [place] [address] 11-16-2024 16:55-0400 Systolic blood pressure 127 mm[Hg] Dr. Corbin Vidal DO Work Phone: 6(032)036-744172 [place] [address] 11-16-2024 16:07-0400 Body mass index (BMI) [Ratio] 33.7 kg/m2 Dr. Corbin Vidal DO Work Phone: [facility] 11-16-2024 16:040 Body weight 89.[address] Corbin Vidal DO Work Phone: [facility] 11-16-2024 14: Body height 162.[address] Corbin Vidal DO Work Phone: [facility] Encounters Encounter Date Encounter Type Care Provider Facility Start: 04-16-2025 Encounter for other preprocedural examination ANASTACIO CISNEROS [facility] Start: 04-16-2025 ambulatory ANASTACIO Alaniz cility:[facility] Start: 04-16-2025 End: 04-16-2025 Preprocedural examination done Anastacio Cisneros MD Work Phone: [facility] Work Phone: Start: 04-16-2025 End: 04-16-2025 Subsequent hospital visit by physician Anastacio Cisneros MD Work Phone: [facility] Comment on above: Colon cancer screeni ng [Z12.11] Start: 02-15-2025 End: 02-15-[address] Jamie Castañeda MD -[facility] Work Phone: Start: 02-15-2025 End: 02-15-[address] Corbin Vidal DO Work Phone: [facility] Work Phone: Start: 02-02-2025 End: 02-06-2025 Orders Only Anastacio Cisneros MD Work Phone: [facility] Comment on above: Colon cancer screeni ng (Primary Dx) Procedure (COLONOSCO PY/) Start: 02-01-[address] Jamie Castañeda MD -[facility] Start: 02-01-2025 End: 02-01-[address] Jamie Castañeda MD -[facility] Work Phone: Start: 02-01-2025 End: 02-01-[address] Corbin Vidal DO Work Phone: [facility] Work Phone: Start: 01-31-2025 End: 01-31-2025 Patient encounter procedure Aanstacio Cisneros MD Work Phone: [facility] Comment on above: Diverticulitis (Prim pk Dx) Start: 01-31-2025 End: 02-02-2025 ambulatory ANASTACIO CISNEROS Facility:[facility] Start: 01-10-2025 End: 01-11-2025 Evaluation and management of inpatient ANASTACIO LAUREN Facility:[facility] Start: 01-04-2025 End: 01-04-2025 Patient encounter procedure [facility] Provider [facility] Start: 01-03-2025 End: 01-03-2025 Telephone encounter Anastacio Cisneros MD Work Phone: [facility] Comment on above: Procedure (COLOSTOMY REVISION SIMPLE/) Start: 01-03-2025 End: 01-03-2025 ambulatory ANASTACIO CISNEROS Facility:[facility] Start: 01-03-2025 End: 01-03-2025 Patient encounter procedure Anastacio Cisneros MD Work Phone: [facility] Comment on above: Diverticulitis (Prim pk Dx) Attention to colosto my (HCC) (Primary Dx) Start: 12-29-2024 ambulatory Corbin Vidal Facility:[facility] Start: 12-29-2024 Non-patient / Non-visit Dr. Stu Woo MD -[facility] Start: 12-29-2024 End: 12-29-2024 Emergency department patient visit Dr. Corbin Vidal DO Work Phone: -Emergency Department Work Phone: Start: 11-17-2024 Non-patient / Non-visit Dr. Jacinda Mckenzie MD -[facility] Work Phone: Start: 11-17-2024 ambulatory Corbin Vidal Facility:[facility] Start: 11-17-2024 Non-patient / Non-visit Dr. Luzma rosas MD -[facility] Start: 11-16-2024 End: 11-17-2024 Evaluation and management of inpatient Dr. Melania Parker MD -[facility] Work Phone: Start: 11-16-2024 End: 11-17-[address] Corbin Vidal DO Work Phone: [facility] Work Phone: Start: 11-16-2024 End: 11-17-2024 ambulatory Faizan Mckenzie Facility:[facility] Start: 11-16-2024 Non-patient / Non-visit Dr. Melania galdamez MD -[facility] Work Phone: Procedures Date Procedure Procedure Detail Performing Clinician Start: 04-16-2025 Colonoscopy flx dx w/collj spec when pfrmd Anastacio Cisneros MD Work Phone: Start: 04-16-2025 Colonoscopy Anastacio glaser MD Work Phone: Start: 02-01-2025 D-dimer assay, quantitative Dr. Corbin Vidal DO Work Phone: Comment on above: NORMAL D-Dimer level (<0.50) indicates no DVT or PE. Start: 12-29-[address] Corbin Vidal DO Work Phone: Start: 12-29-2024 Computed tomography of abdomen and pelvis with contrast Dr. Corbin Vidal DO Work Phone: Start: 11-17-[address] Corbin Vidal DO Work Phone: Start: 11-16-2024 CT angiography of ch est with contrast Dr. Corbin Vidal DO Work Phone: Plan of Treatment Date Care Activity Detail Author Start: 2037 RSV Vaccine (1 - 1-d ose 75+ series) RSV Vaccine (1 - 1-dose 75+ series) [facility] Start: 01-12-2028 Diabetes Screening Diabetes Screenin g [facility] Start: 04-16-2026 Screening for malign ant neoplasm of colon [facility] Start: 04-23-2025 Influenza vaccination [facility] Start: 04-16-2025 End: 04-16-2025 Patient encounter procedure 04/16/2025 10:00 AM EDT Appointment [facility] [address] [place] [address] Anastacio Cisneros MD 1 [facility] [address] [place], [place] [id number] [facility] Start: 01-31-2025 End: 01-31-2025 Patient encounter procedure 01/31/2025 11:00 AM EDT Office Visit [facility] 1 [facility] 3rd Floor [place], [place] [id number] Anastacio Cisneros MD [address] [id number] Post Op Reversal [facility] Comment on above: Post Op Reversal Start: 01-10-2025 End: 01-10-2025 Admission to same day surgery center 01/10/2025 3:05 PM EDT - 01/10/2025 5:20 PM EDT [facility] [address] [place] [address] Anastacio Cisneros MD [address] [id number] COLOSTOMY REVISION SIMPLE [facility] Comment on above: COLOSTOMY REVISION S IMPLE Start: 01-10-2025 End: 01-10-2025 Revj ileostomy simple rls superficial scar spx REVISION ILEOSTOMY SIMPLE Attention to colostomy (HCC) 01/10/2025 3:05 PM EDT [facility] Start: 01-10-2025 Subsequent hospital visit by physician 01/10/2025 3:05 PM EDT Hospital Encounter [facility] [address] [place] [address] Anastacio Cisneros MD [address] [phone] Attention to colostomy (HCC) [Z43.3] [facility] Comment on above: Attention to colosto my (HCC) [Z43.3] Start: 12-29-2024 [facility] Start: 11-17-2024 Patient discharge [facility] Start: 11-16-2024 Following clinical pathway protocol [facility] Start: 11-16-2024 Assessment of risk o f venous thromboembolism [facility] Start: 11-16-2024 Consultation for treatment [facility] Start: 11-16-2024 Incentive spirometry [facility] Start: 11-16-2024 Inhalation therapy procedure [facility] Start: 11-16-2024 Insertion of cathete r into peripheral vein [facility] Start: 11-16-2024 Measuring intake and output [facility] Start: 11-16-2024 Oxygen therapy [facility] Start: 11-16-2024 Providing care accor ding to standard [facility] Start: 11-16-2024 Provision of activit y privileges [facility] Start: 11-16-2024 Referral to service [facility] Start: 11-16-2024 [facility] Start: 11-16-2024 Hospital admission, emergency, from emergency room, medical nature [facility] Start: 11-16-2024 Verification routine [facility] Start: 11-16-2024 Admission procedure [facility] Start: 11-16-2024 [facility] Start: 11-16-2024 [facility] Start: 11-16-2024 Patient referral to dietitian [facility] Start: 04-23-2024 Covid-19 Vaccine ( season) Covid-19 Vaccine ( season) [facility] Start: 2022 RSV Vaccine (1 - Ris k 60-74 years 1-dose series) RSV Vaccine (1 - Risk 60-74 years 1-dose series) [facility] Start: 2012 Pneumococcal Vaccine : 50+ (1 of 1 - PCV) Pneumococcal Vaccine: 50+ (1 of 1 - PCV) [facility] Start: 2012 Shingrix Vaccine (1 of 2) [place] grix Vaccine (1 of 2) [facility] Start: 2007 Diabetes Screening Diabetes Screenin g [facility] Start: 2007 Lipid panel Lipid Screening [facility] Start: 2007 Screening for malign ant neoplasm of colon [facility] Start: 2002 Screening for malign ant neoplasm of breast Mammogram Screening [facility] Start: 1983 Screening for malign ant neoplasm of cervix Cervical Cancer Screening [facility] Start: 1981 Urine microalbumin profile DTaP,Tdap,Td Vaccine (1 - Tdap) [facility] Start: 1980 Annual PCP Team Accounts Adjustable Clerk artur Disease Visit Annual PCP Team Chronic Disease Visit [facility] Start: 1980 Anxiety Screening Anxiety Screening [facility] Start: 1980 Depression Screening Depression Scre ening [facility] Start: 1980 Hepatitis C screening Hepatitis C Sc reening [facility] Start: 1980 HIV screening HIV Screening [facility] Bilirubin measuremen t, urine [facility] D-dimer assay, quantitative [facility] End: 01-03-2026 Flexible sigmoidoscopy study COLONOSCOPY DIAGNOSTIC Endoscopy Routine Diverticulitis 1 Occurrences starting 01/03/2025 until 01/03/2026 [facility] Work Phone: Comment on above: 1 Occurrences starti ng 01/03/2025 until 01/03/2026 H&P for surgery H&P FOR SURGERY Procedures Routine Attention to colostomy (HCC) Ordered: 01/03/2025 [facility] Work Phone: Comment on above: Ordered: 01/03/2025 Hemoglobin [Presence ] in Urine [facility] Measurement of keton es in urine using dipstick [facility] Microscopic urinalysis [facility] Patient Education DVT/PE Dischar ge instruction sheet Embolism Pulmonary Dc [facility] Work Phone: Patient referral [facility] Work Phone: pH of Urine [facility] End: 02-02-2026 Screening colonoscopy COLONOSCOPY SCREENING Endoscopy Routine Colon cancer screening 1 Occurrences starting 02/02/2025 until 02/02/2026 [facility] Work Phone: Comment on above: 1 Occurrences starti ng 02/02/2025 until 02/02/2026 Specific gravity of Urine [facility] Troponin T.cardiac [Mass/volume] in Serum or Plasma by High sensitivity method [facility] Troponin T.cardiac [Mass/volume] in Serum or Plasma by High sensitivity method [facility] Urine blood test [facility] Urine dipstick for glucose [facility] Urine dipstick for leukocyte esterase [facility] Urine dipstick for nitrite [facility] Urine dipstick for protein [facility] Urine examination [facility] Urine microscopy: epithelial cells [facility] Urine Microscopy: wh ite cells [facility] Urobilinogen [Presen ce] in Urine [facility] Payers Date Payer Category Payer Self-pay 2024 Private Health Insurance [id number] 2024 Unknown [id number] Unknown [id number] 2.16.8 [id number] Unknown [id number] 2.16.8 [id number] Unknown [id number] 2.16.8 [id number] Unknown [id number] 2.16.8 [id number] Unknown [id number] 2.16.8 [id number] Unknown [id number] 2.16.8 [id number] Unknown [id number] 2.16.8 [id number] Unknown [id number] 2.16.8 [id number] Unknown [id number] 2.16.8 [id number] Social History Date Type Detail Facility Start: 11-16-2024 End: 02-01-2025 Tobacco smoking status NHIS Never smoked tobacco (finding) [facility] Start: 11-16-2024 End: 11-17-2024 Sex Female (finding) [facility] Start: 1960 Sex Assigned At Female W [facility] Start: 01-03-2025 Tobacco smoking stat NHIS Ex-smoker [facility] History of tobacco use Current smoker [facility] History of tobacco use Cigarette Smoker C [facility] History of tobacco use Passive smoker [facility] Start: 01-03-2025 Tobacco use and exposure Smokeless tobacco non-user [facility] Start: 01-03-2025 End: 04-16-2025 Alcoholic beverage intake Ex-drinker (finding) [facility] Start: 01-03-2025 End: 01-31-2025 History of Social function [facility] Start: 01-03-2025 End: 01-31-2025 Tobacco use panel [facility] Start: 1960 Sex assigned at Not on file C [facility] Start: 07-24-2012 National Score (1-10 0), lower number is lower risk 42 [facility] How often to you hav e a drink containing alcohol? Never [facility] Goals Date Patient Goal Desired Activity /State Functional Status Date Assessment Result Facility 01-11-2025 Are you deaf, or do you have serious difficulty hearing No 01/11/2025 2:20 PM Tiffanie Palacio RN No [facility] 01-11-2025 Are you blind, or do you have serious difficulty seeing, even when wearing glasses No 01/11/2025 2:20 PM Tiffanie Palacio RN No [facility] 01-11-2025 Do you have serious difficulty walking or climbing stairs No 01/11/2025 2:20 PM Tiffanie Palacio RN No [facility] 01-11-2025 Do you have difficul ty dressing or bathing No 01/11/2025 2:20 PM Tiffanie Palacio RN No [facility] 01-11-2025 Because of a physica l, mental, or emotional condition, do you have difficulty doing errands alone such as visiting a physician's office or shopping No 01/11/2025 2:20 PM EDT Tiffanie Dupree RN No [facility] 11-17-2024 Functional status Ambulates [facility] Work Phone: [facility] Mental Status Date Assessment Result Facility 01-11-2025 Because of a physica l, mental, or emotional condition, do you have serious difficulty concentrating, remembering, or making decisions No 01/11/2025 2:20 PM EDT Tiffanie Dupree RN No [facility] 11-17-2024 Cognitive function Voice/Name [facility] Work Phone: Clinical Notes 11-16-2024 to 04-16-2025 Discharge Instr - Other Deyanira Vieira APRN.DIRECT MAIL COORDINATOR - 04/16/2025 9:30 AM Deyanira Urbina APRN.ESTER - 04/16/2025 9:30 AM EDT Note Date & Type Note Facility 04-16-2025 Hospital Discharg e instructions Anastacio Cisneros MD - 04/16/2025 10:42 AM EDT First 24 Hours Following the Procedure Once the colonoscopic procedure has been completed, it is recommended that you be driven home by a friend or family member. If you were sedated for the procedure (which most people are), it's recommended that you have someone with you for the first 24 hours after you leave the endoscopy clinic or hospital. If you have nausea, your doctor may prescribe medications to help alleviate symptoms. During the first 24 hours, you should adhere to the following guidelines: Refrain from driving or operating heavy machinery until at least day after your procedure. Take any pain medications or stool softeners as prescribed. Drink plenty of liquids, including prune juice which can help soften stools. Avoid alcohol for the first 24 hours. Eat high-fiber foods or use an [id number] fiber supplement, if needed. Rest and avoid any heavy lifting or strenuous activity. Make sure you have someone with you. If you are single, ask a friend or family member if they can stay the night. If you're taking a daily aspirin to prevent heart troubles, you don't need to stop. Lower-dose aspirin is considered safe after a colonoscopy. When to Call Your Doctor Complications are uncommon but can occur. Call your doctor or clinic if you experience any of the following symptoms in the first 24 hours following your procedure: You have chills or fever. You experience rectal bleeding of more than a tablespoon. You experience swelling at the site where the IV needle was inserted. You experience severe abdominal pain or bloating (mild pain or bloating can be expected). You are vomiting. You are experiencing irregular heartbeats (arrhythmia). If you just don't feel right for any reason. Trust your intuition, and if you feel that something could be wrong, don't hesitate to call. After the First 24 Hours If polyps were removed during your colonoscopy, you will likely need to alter your activities for the next seven days. This includes not running, not lifting anything over five pounds, avoiding unnecessary travel, and stopping any blood thinners you may be taking (but first, this should be discussed with the physician who has been prescribing the blood thinners, as sometimes using these after a colonoscopy outweighs the risk of not using them). In short, be careful and treat your body gingerly. If you experience any of the following symptoms during the first week, call your doctor immediately or go to your nearest emergency room: You are unable to have a bowel movement or to urinate. You suddenly have trouble breathing. Your stools are black or bloody. Your vomit has blood or bile in it. Your abdomen becomes tender and hard. Any symptoms you have are getting worse. documented in this encounter [facility] 04-16-2025 History and physi quynh note HISTORY AND PHYSICAL EXAMINATION SERVICE DATE: 04/16/2025 SERVICE TIME: 8:31 AM PRIMARY CARE PHYSICIAN: Harrison Moseley MD REASON FOR VISIT: Reina Malloy is a 64 year old female who is scheduled for colonoscopy at the request of Dr. Cisneros for routine H&P. The reason for this visit is to perform a comprehensive review of the patient's past medical history, assess their current health status and obtain any additional testing required based on anesthesia guidelines. We will also identify any potential anesthesia problems or contraindications to the planned procedure. The patient has the following: ACTIVE PROBLEM LIST Obesity, Class I, Bmi 30-34.9 Colostomy Stenosis (Hcc) Attention to Colostomy (Hcc) Preop Examination Htn (Hypertension) Hld (Hyperlipidemia) History of Dvt (Deep Vein Thrombosis) Colon Cancer Screening Subjective CHIEF COMPLAINT: screening for colorectal cancer HPI: Patient is a 64 year old female who presents to [facility] for the above procedure. Pt has a history of diverticulitis with perforation, sigmoid colectomy with colostomy. This is her first colonoscopy. Denies family history of colon cancer. No issues with colostomy. Denies abdominal pain, Nausea, vomiting, constipation, diarrhea, hemtochezia at this time. Patient agrees to proceed with procedure. PAST MEDICAL HISTORY Diagnosis Date Diverticulitis 11/2024 w/ perforation requiring simoid colectomy DVT (deep venous thrombosis) (HCC) after surgery and travel 12/2024 HLD (hyperlipidemia) HTN (hypertension) Known medical problems 10/2024 blood clot in lung, started on eliquis per pt PAST SURGICAL HISTORY Procedure Laterality Date COLOSTOMY 10/28/2024 [place] No family history on file. SOCIAL HISTORY: SOCIAL HISTORY[1] Prior to Admission medications as of 04/16/25 0904 Medication Sig Last Dose Taking fenofibrate nanocrystallized (TRICOR) 48 mg tablet Take 48 mg by mouth once daily. Pt unsure of dose 04/15/2025 Evening Yes amLODIPine (NORVASC) 5 mg tablet Take 1 tablet by mouth once daily. 04/15/2025 Evening Yes losartan (COZAAR) 50 mg tablet Take 1 tablet by mouth once daily. 04/15/2025 Morning Yes pravastatin (PRAVACHOL) 40 mg tablet Take 40 mg by mouth daily at bedtime. 04/15/2025 Evening Yes ELIQUIS 5 mg tab(s) Take 1 tablet by mouth every 12 hours. Patient should start on January 12, 2025. polyethylene glycol 3350 (MIRALAX ORAL) Take by mouth as needed. No medication comments found. ALLERGIES No Known Allergies REVIEW OF SYSTEMS: PAIN ASSESSMENT: Pain Pain Assessment: Assessment Tool: Verbal (Numeric Rating or Visual Analog Scale) General: Denies fever, chills, and unexpected weight change. Neuro: Denies dizziness and headaches. Respiratory: Denies SOB or productive cough Cardiovascular: Denies CP and palpitations. +HTN, +HLD GI: see HPI : Denies dysuria. Endocrine: No history of diabetes or thyroid conditions. Hematology: Denies history of bleeding or clotting disorder. No known autoimmune disorders H/O DVT Musculoskeletal: Denies joint pain and swelling. Skin: Denies open sores and rashes. Objective PHYSICAL EXAM: VITALS: BP 124/70 Pulse 63 Temp (Src) 98.4 (Temporal) Resp 15 SpO2 96% O2 Therapy: Room Air General: NAD. Cooperative. Skin: Skin is warm, no rashes, and no open sores. HEENT: Normocephalic. Cardiovascular: Normal S1 & S2. RRR, No murmur. Lungs: CTA Bilaterally. No respiratory distress. Abdomen: Soft, nontender, non-distended. Bowel sounds normal in all four quadrants. Extremities: No edema. Neurological: Alert and oriented to person, place, and time. Pulses: radial pulses +2 Diagnostic tests reviewed for today's visit: Lab Value Units Date High Low HB 11.4 g/dL 01/11/2025 15.5 11.5 HCT 32.9 % 01/11/2025 46.0 36.0 WBC 8.70 k/uL 01/11/2025 11.00 3.70 PLT 271 k/uL 01/11/2025 400 150 NA 140 mmol/L 01/11/2025 144 136 K 3.8 mmol/L 01/11/2025 5.1 3.7 GLUC 167 mg/dL 01/11/2025 99 74 BUN 14 mg/dL 01/11/2025 21 7 CREAT 0.60 mg/dL 01/11/2025 0.96 0.58 PTSEC No results within date range. INR No results within date range. APTT No results within date range. ALT No results within date range. AST No results within date range. TBILI No results within date range. TSH No results within date range. Lab Value Units Date High Low HCGQT No results within date range. UHCG No results within date range. HCG, BODY* No results within date range. Lab Value Units Date High Low ABORHD No results within date range. ABSCREEN No results within date range. Assessment/Plan ANESTHESIA FINDINGS: Significant Anesthesia Considerations: None Patient has the following medical conditions which may affect adria-operative course Problem List Items Addressed This Visit Cardiovascular HTN (hypertension) Current Assessment & Plan Controlled with amlodipine and losartan Relevant Medications fenofibrate nanocrystallized (TRICOR) 48 mg tablet HLD (hyperlipidemia) Current Assessment & Plan Statin, continue as prescribed Relevant Medications fenofibrate nanocrystallized (TRICOR) 48 mg tablet Other Obesity, Class I, BMI 30-34.9 Current Assessment & Plan BMI 34.3 Preop examination - Primary Current Assessment & Plan Patient has the following medical conditions which may affect adria-operative course addressed in assessment and plan today. History of DVT (deep vein thrombosis) Overview 12/2024 Provoked - 3 months of Eliquis, therapy completed Colon cancer screening Relevant Orders COLONOSCOPY SCREENING PLAN Procedure Diagnosis: Colon cancer screening [Z12.11] Planned Procedure: colonoscopy Planned Anesthetic: JUNE Saab spent a total of 20 minutes on the date of the service which included preparing to see the patient, [id number] patient care, completing clinical documentation, obtaining and/or reviewing separately obtained history, and performing a medically appropriate examination. SIGNATURE: Deyanira Huber APRN.CNP PATIENT NAME: Reina Malloy DATE: April 16, 2025 TIME: 8:31 AM PAGER/CONTACT #: [1] Social History Tobacco Use Smoking status: Former Types: Cigarettes Passive exposure: Past Smokeless tobacco: Never Substance Use Topics Alcohol use: Not Currently Drug use: Never [facility] 04-16-2025 History and physi quynh note HISTORY AND PHYSICAL EXAMINATION SERVICE DATE: 04/16/2025 SERVICE TIME: 8:31 AM PRIMARY CARE PHYSICIAN: Harrison Moseley MD REASON FOR VISIT: Reina Malloy is a 64 year old female who is scheduled for colonoscopy at the request of Dr. Cisneros for routine H&P. The reason for this visit is to perform a comprehensive review of the patient's past medical history, assess their current health status and obtain any additional testing required based on anesthesia guidelines. We will also identify any potential anesthesia problems or contraindications to the planned procedure. The patient has the following: ACTIVE PROBLEM LIST Obesity, Class I, Bmi 30-34.9 Colostomy Stenosis (Hcc) Attention to Colostomy (Hcc) Preop Examination Htn (Hypertension) Hld (Hyperlipidemia) History of Dvt (Deep Vein Thrombosis) Colon Cancer Screening Subjective CHIEF COMPLAINT: screening for colorectal cancer HPI: Patient is a 64 year old female who presents to [facility] for the above procedure. Pt has a history of diverticulitis with perforation, sigmoid colectomy with colostomy. This is her first colonoscopy. Denies family history of colon cancer. No issues with colostomy. Denies abdominal pain, Nausea, vomiting, constipation, diarrhea, hemtochezia at this time. Patient agrees to proceed with procedure. PAST MEDICAL HISTORY Diagnosis Date Diverticulitis 11/2024 w/ perforation requiring simoid colectomy DVT (deep venous thrombosis) (HCC) after surgery and travel 12/2024 HLD (hyperlipidemia) HTN (hypertension) Known medical problems 10/2024 blood clot in lung, started on eliquis per pt PAST SURGICAL HISTORY Procedure Laterality Date COLOSTOMY 10/28/2024 [place] No family history on file. SOCIAL HISTORY: SOCIAL HISTORY[1] Prior to Admission medications as of 04/16/25 0904 Medication Sig Last Dose Taking fenofibrate nanocrystallized (TRICOR) 48 mg tablet Take 48 mg by mouth once daily. Pt unsure of dose 04/15/2025 Evening Yes amLODIPine (NORVASC) 5 mg tablet Take 1 tablet by mouth once daily. 04/15/2025 Evening Yes losartan (COZAAR) 50 mg tablet Take 1 tablet by mouth once daily. 04/15/2025 Morning Yes pravastatin (PRAVACHOL) 40 mg tablet Take 40 mg by mouth daily at bedtime. 04/15/2025 Evening Yes ELIQUIS 5 mg tab(s) Take 1 tablet by mouth every 12 hours. Patient should start on January 12, 2025. polyethylene glycol 3350 (MIRALAX ORAL) Take by mouth as needed. No medication comments found. ALLERGIES No Known Allergies REVIEW OF SYSTEMS: PAIN ASSESSMENT: Pain Pain Assessment: Assessment Tool: Verbal (Numeric Rating or Visual Analog Scale) General: Denies fever, chills, and unexpected weight change. Neuro: Denies dizziness and headaches. Respiratory: Denies SOB or productive cough Cardiovascular: Denies CP and palpitations. +HTN, +HLD GI: see HPI : Denies dysuria. Endocrine: No history of diabetes or thyroid conditions. Hematology: Denies history of bleeding or clotting disorder. No known autoimmune disorders H/O DVT Musculoskeletal: Denies joint pain and swelling. Skin: Denies open sores and rashes. Objective PHYSICAL EXAM: VITALS: BP 124/70 Pulse 63 Temp (Src) 98.4 (Temporal) Resp 15 SpO2 96% O2 Therapy: Room Air General: NAD. Cooperative. Skin: Skin is warm, no rashes, and no open sores. HEENT: Normocephalic. Cardiovascular: Normal S1 & S2. RRR, No murmur. Lungs: CTA Bilaterally. No respiratory distress. Abdomen: Soft, nontender, non-distended. Bowel sounds normal in all four quadrants. Extremities: No edema. Neurological: Alert and oriented to person, place, and time. Pulses: radial pulses +2 Diagnostic tests reviewed for today's visit: Lab Value Units Date High Low HB 11.4 g/dL 01/11/2025 15.5 11.5 HCT 32.9 % 01/11/2025 46.0 36.0 WBC 8.70 k/uL 01/11/2025 11.00 3.70 PLT 271 k/uL 01/11/2025 400 150 NA 140 mmol/L 01/11/2025 144 136 K 3.8 mmol/L 01/11/2025 5.1 3.7 GLUC 167 mg/dL 01/11/2025 99 74 BUN 14 mg/dL 01/11/2025 21 7 CREAT 0.60 mg/dL 01/11/2025 0.96 0.58 PTSEC No results within date range. INR No results within date range. APTT No results within date range. ALT No results within date range. AST No results within date range. TBILI No results within date range. TSH No results within date range. Lab Value Units Date High Low HCGQT No results within date range. UHCG No results within date range. HCG, BODY* No results within date range. Lab Value Units Date High Low ABORHD No results within date range. ABSCREEN No results within date range. Assessment/Plan ANESTHESIA FINDINGS: Significant Anesthesia Considerations: None Patient has the following medical conditions which may affect adria-operative course Problem List Items Addressed This Visit Cardiovascular HTN (hypertension) Current Assessment & Plan Controlled with amlodipine and losartan Relevant Medications fenofibrate nanocrystallized (TRICOR) 48 mg tablet HLD (hyperlipidemia) Current Assessment & Plan Statin, continue as prescribed Relevant Medications fenofibrate nanocrystallized (TRICOR) 48 mg tablet Other Obesity, Class I, BMI 30-34.9 Current Assessment & Plan BMI 34.3 Preop examination - Primary Current Assessment & Plan Patient has the following medical conditions which may affect adria-operative course addressed in assessment and plan today. History of DVT (deep vein thrombosis) Overview 12/2024 Provoked - 3 months of Eliquis, therapy completed Colon cancer screening Relevant Orders COLONOSCOPY SCREENING PLAN Procedure Diagnosis: Colon cancer screening [Z12.11] Planned Procedure: colonoscopy Planned Anesthetic: JUNE Saab spent a total of 20 minutes on the date of the service which included preparing to see the patient, [id number] patient care, completing clinical documentation, obtaining and/or reviewing separately obtained history, and performing a medically appropriate examination. SIGNATURE: Deyanira Huber APRN.CNP PATIENT NAME: Reina Malloy DATE: April 16, 2025 TIME: 8:31 AM PAGER/CONTACT #: [1] Social History Tobacco Use Smoking status: Former Types: Cigarettes Passive exposure: Past Smokeless tobacco: Never Substance Use Topics Alcohol use: Not Currently Drug use: Never documented in this encounter [facility] 02-15-2025 Progress note [facility] 02-15-2025 Progress note Note Date/Time February 15, 2025 1:05pm [facility] [address] [address] OFFICE VISIT Date of Service: 02/15/25 1246 MR#: [id number] Acct: [id number] Name: REINA MALLOY Triston Rep #: [id number] : 1960 From: Jamie Castañeda MD Age/Sex: 64/F Location: [facility] Status: Signed HPI Subjective Date of Service 02/15/25 Chief Complaint F/u for PE. History of Present Illness 64y.o.woman had colostomy done on 10/28/2024 in [place] perforated bowel. [place], developed difficulty breathing and chest pain on 11/16/2024. CTA showed bilateral pulmonary emboli with consolidation in the lower lobes. She was started on IV heparin and then changed to Eliquis 5 mg twice daily. Shecame to the clinic to assess if she should continue Eliquis beyond 3 months. Had D-dimers done and comes for follow up. She feels well, denies shortness of breath, weight loss fever or night sweats. Has no family history of clots. [facility] Medical History History of diverticulitis of colon Hyperlipidemia HTN (hypertension) Surgical History H/O section Colostomy in place Social History Smoking Status: Never smoker alcohol intake: never substance use type: does not use Intake Vital Signs 02/01/25 15:03 02/15/25 12:46 Height 5 ft 4 in 5 ft 4 in Weight: 90.775 kg BMI 34.3 BP 118/69 Blood Pressure Location Lt brachial Position Sitting Respiration 16 Pulse 77 Pulse Source Monitor Temp 96.9 F L Temperature Source Temporal Artery Pulse Oximetry (%) 97 Oxygen Delivery Method room air Intake Is patient in pain?: No Allergies No Known Allergies Allergy (Verified 02/15/25 12:50) Medications ?Medication ?Instructions ?Recorded ?Confirmed ?Type amlodipine 5 mg tablet 5 mg PO DAILY blood pressure 11/16/24 02/15/25 History fenofibrate 160 mg tablet 160 mg PO DAILY cholesterol 11/16/24 02/15/25 History losartan 50 mg tablet 50 mg PO DAILY blood pressur e 11/16/24 02/15/25 History pravastatin 40 mg tablet 40 mg PO QHS cholesterol 02/15/25 History apixaban 5 mg tablet (Eliquis) 5 mg PO BID 02/01/25 History Central Venous Access Central Venous Access: No Laboratory Tests 02/01/25 15:44 D-Dimer Quant (PE/DVT) 0.27 Exam Physical Exam Const alert, oriented x3, no apparent distress and average body habitus Coding Level of Care Code Off vis,est,level 3 Exam Problem Focused Diagnoses Bilateral pulmonary embolism I26.99 Assessment and Plan Assessment and Plan (1) Bilateral pulmonary embolism: Status: Chronic Comment: Provoked, had Bilateral lung involvement. Discussed Provoked PE, bilateral lung disease, patient wants to stop after 3 months. D-dimers are normal. Plan: To change to Prophylactic Dose of Eliquis 2.5mg bid. Follow up with PCP. 02/15/25 1305 <Electronically signed by Jamie Mcgovern> Date _ Jamie Castañeda MD Cosigner Signature: Date (if applicable) CC: Dr. Corbin Vidal, DO ~ [employer] Work Phone: [phone] Telephone encounter Note* Telephone Encounter - Charity Schaefer - 02/02/2025 8:59 AM EDT Surgery Checklist Type: COLONOSCOPY Admission Type: outpatient Anesthesia: MAC Date: 04/16/25 Arrival Time: 9:00 AM Surgery Time: 10:00 AM Location: [facility] Colonoscopy Prep mailed to the patient. Charity Schaefer [facility]06-13-2025 Miscellaneous Notes* Telephone Encounter - Charity Schaefer - 02/02/2025 8:59 AM EDT Surgery Checklist Type: COLONOSCOPY Admission Type: outpatient Anesthesia: MAC Date: 04/16/25 Arrival Time: 9:00 AM Surgery Time: 10:00 AM Location: [facility] Colonoscopy Prep mailed to the patient. Charity Schaefer [facility] NoteHNO ID: [id number] Author: ANASTACIO CISNEROS MD Service: ? Author Type: Physician Type: Progress Notes Filed: 01/31/2025 12:01 Note Text: Jo GuidryD. Colon AND Rectal Surgery [address] [facility] [facility] [address], [address] [place] [id number] SUBJECTIVE Reina Malloy is a 64 year old White female s/p colostomy revision HPI She is generally doing well noting that the ostomy is open like it was after the first surgery with good output. She still has some discomfort in the abdomen and going back and both flanks which is bothersome but not severe. She also describes some bleeding from the ostomy which has sometimes been a significant amount but is intermittent. She has not yet had a colonoscopy. Review of Systems Constitutional: Negative for chills and fever. HENT: Negative for congestion, ear pain, hearing loss, sinus pain and sore throat. Eyes: Negative for blurred vision, double vision and pain. Respiratory: Negative for cough, shortness of breath and wheezing. Cardiovascular: Negative for chest pain, palpitations and leg swelling. Gastrointestinal: Negative for abdominal pain, constipation, diarrhea, heartburn, nausea and vomiting. Genitourinary: Negative for dysuria, frequency and urgency. Musculoskeletal: Negative for back pain, joint pain and neck pain. Skin: Negative for itching and rash. Neurological: Negative for dizziness, weakness and headaches. Endo/Heme/Allergies: Negative for environmental allergies. Does not bruise/bleed easily. Psychiatric/Behavioral: Negative for depression and memory loss. The patient is not nervous/anxious and does not have insomnia. PAST MEDICAL HISTORY Diagnosis Date Diverticulitis 11/2024 w/ perforation requiring simoid colectomy HLD (hyperlipidemia) HTN (hypertension) Known medical problems 10/2024 blood clot in lung, started on eliquis per pt PAST SURGICAL HISTORY Procedure Laterality Date COLOSTOMY 10/28/2024 [place] Social History Tobacco Use Smoking status: Former Types: Cigarettes Passive exposure: Past Smokeless tobacco: Never Substance Use Topics Alcohol use: Not Currently Drug use: Never No family history on file. The ROS, medical, surgical, family, and social history were reviewed by Anastacio Cisneros MD ALLERGIES No Known Allergies Current Outpatient Medications Medication Sig ELIQUIS 5 mg tab(s) Take 1 tablet by mouth every 12 hours. Patient should start on January 12, 2025. amLODIPine (NORVASC) 5 mg tablet Take 1 tablet by mouth once daily. losartan (COZAAR) 50 mg tablet Take 1 tablet by mouth once daily. pravastatin (PRAVACHOL) 40 mg tablet Take 40 mg by mouth daily at bedtime. polyethylene glycol 3350 (MIRALAX ORAL) Take by mouth as needed. No current facility-administered medications for this visit. OBJECTIVE BP 123/82 (BP Site: Right Arm, BP Cuff Size: Large Adult) Pulse 64 Ht 160 cm (5' 3) Wt 88 kg (194 lb) BMI 34.37 kg/m? BMI 34.37 kg/(m2) Physical Exam Constitutional: General: She is not in acute distress. Appearance: Normal appearance. She is not ill-appearing. Abdominal: General: There is no distension. Palpations: Abdomen is soft. Tenderness: There is no abdominal tenderness. Neurological: Mental Status: She is alert and oriented to person, place, and time. Psychiatric: Mood and Affect: Mood and affect normal. Judgment: Judgment normal. Hemoglobin (g/dL) Date Value 01/11/2025 11.4 Hematocrit (%) Date Value 01/11/2025 32.9 WBC (k/uL) Date Value 01/11/2025 8.70 Platelet Count (k/uL) Date Value 01/11/2025 271 Creatinine Date Value Ref Range Status 01/11/2025 0.60 0.58 - 0.96 mg/dL Final No results found for: AST No results found for: ALT WBC (k/uL) Date Value 01/11/2025 8.70 RBC (m/uL) Date Value 01/11/2025 3.65 (L) %DIG,%DBS Plan ASSESSMENT/PLAN: 1. Diverticulitis - ICD9: 562.11, ICD10: K57.92 She is doing well, no stenosis at this point and she does need a colonoscopy before she would have reversal surgery in the fall and would like to do this here so we will set this up in March. Risks, alternatives and benefits of the planned procedure were fully discussed with the patient. Risks include but are not limited to perforation, bleeding potentially requiring transfusion with inherent risks, enteric leak, and . Also discussed cardiovascular risks and pulmonary risks. The patient seems to understand and agrees to proceed. All questions answered. Informed consent obtained. Follow up: Return for Colonoscopy. Anastacio Cisneros M.D. Please Note: This office note has been created using Fanplayr, a speech recognition software program, and may contain errors including punctuation, grammar, spelling, gender, and inappropriate words or phrases that pertain to the sytem.[facility]06-11-2025 History of Present illness Narrative* Anastacio Cisneros MD - 01/31/2025 11:07 AM EDT Images from the original note were not included. Anastacio Cisneros M.D. Colon & Rectal Surgery [address], [address] [place] [address] SUBJECTIVE Reina Malloy is a 64 year old White female s/p colostomy revision HPI She is generally doing well noting that the ostomy is open like it was after the first surgery withgood output. She still has some discomfort in the abdomen and going back and both flanks which is bothersome but not severe. She also describes some bleeding from the ostomy which has sometimes been a significant amount but is intermittent. She has not yet had a colonoscopy. Review of Systems Constitutional: Negative for chills and fever. HENT: Negative for congestion, ear pain, hearing loss, sinus pain and sore throat. Eyes: Negative for blurred vision, double vision and pain. Respiratory: Negative for cough, shortness of breath and wheezing. Cardiovascular: Negative for chest pain, palpitations and leg swelling. Gastrointestinal: Negative for abdominal pain, constipation, diarrhea, heartburn, nausea and vomiting. Genitourinary: Negative for dysuria, frequency and urgency. Musculoskeletal: Negative for back pain, joint pain and neck pain. Skin: Negative for itching and rash. Neurological: Negative for dizziness, weakness and headaches. Endo/Heme/Allergies: Negative for environmental allergies. Does not bruise/bleed easily. Psychiatric/Behavioral: Negative for depression and memory loss. The patient is not nervous/anxiousand does not have insomnia. PAST MEDICAL HISTORY Diagnosis Date Diverticulitis 11/2024 w/ perforation requiring simoid colectomy HLD (hyperlipidemia) HTN (hypertension) Known medical problems 10/2024 blood clot in lung, started on eliquis per pt PAST SURGICAL HISTORY Procedure Laterality Date COLOSTOMY 10/28/2024 [place] Social History Tobacco Use Smoking status: Former Types: Cigarettes Passive exposure: Past Smokeless tobacco: Never Substance Use Topics Alcohol use: Not Currently Drug use: Never No family history on file. The ROS, medical, surgical, family, and social history were reviewed by Anastacio Cisneros MD ALLERGIES No Known Allergies Current Outpatient Medications Medication Sig ELIQUIS 5 mg tab(s) Take 1 tablet by mouth every 12 hours. Patient should start on January 12, 2025. amLODIPine (NORVASC) 5 mg tablet Take 1 tablet by mouth once daily. losartan (COZAAR) 50 mg tablet Take 1 tablet by mouth once daily. pravastatin (PRAVACHOL) 40 mg tablet Take 40 mg by mouth daily at bedtime. polyethylene glycol 3350 (MIRALAX ORAL) Take by mouth as needed. No current facility-administered medications for this visit. OBJECTIVE BP 123/82 (BP Site: Right Arm, BP Cuff Size: Large Adult) Pulse 64 Ht 160 cm (5' 3) Wt 88 kg(194 lb) BMI 34.37 kg/m BMI 34.37 kg/(m^2) Physical Exam Constitutional: General: She is not in acute distress. Appearance: Normal appearance. She is not ill-appearing. Abdominal: General: There is no distension. Palpations: Abdomen is soft. Tenderness: There is no abdominal tenderness. Neurological: Mental Status: She is alert and oriented to person, place, and time. Psychiatric: Mood and Affect: Mood and affect normal. Judgment: Judgment normal. Hemoglobin (g/dL) Date Value 01/11/2025 11.4 Hematocrit (%) Date Value 01/11/2025 32.9 WBC (k/uL) Date Value 01/11/2025 8.70 Platelet Count (k/uL) Date Value 01/11/2025 271 Creatinine Date Value Ref Range Status 01/11/2025 0.60 0.58 - 0.96 mg/dL Final No results found for: AST No results found for: ALT WBC (k/uL) Date Value 01/11/2025 8.70 RBC (m/uL) Date Value 01/11/2025 3.65 (L) %DIG,%DBS Plan ASSESSMENT/PLAN: 1. Diverticulitis - ICD9: 562.11, ICD10: K57.92 She is doing well, no stenosis at this point and she does need a colonoscopy before she would have reversal surgery in the fall and would like to do this here so we will set this up in March. Risks, alternatives and benefits of the planned procedure were fully discussed with the patient. Risks include but are not limited to perforation, bleeding potentially requiring transfusion with inherent risks, enteric leak, and . Also discussed cardiovascular risks and pulmonary risks. The patient seems to understand and agrees to proceed. All questions answered. Informed consent obtained. Follow up: Return for Colonoscopy. Anastacio Cisneros M.D. Please Note: This office note has been created using Fanplayr, a speech recognition software program, and may contain errors including punctuation, grammar, spelling, gender, and inappropriate words or phrases that pertain to the sytem. documented in this encounterWadsworth-[facility]05-[facility]25 NoteHNO ID: [id number] Author: ANASTACIO CISNEROS MD Service: General Surgery Author Type: Resident Type: Progress Notes Filed: 01/11/2025 13:25 Note Text: Attestation signed by Anastacio Cisneros MD at 01/11/2025 1:25 PM I personally saw and examined the patient on 01/11/2025. I reviewed the resident?s note. I agree with the resident?s assessment and plan unless otherwise noted Anastacio Cisneros MD 1:25 PM 01/11/25 Please Note: This office note has been created using Fanplayr, a speech recognition software program, and may contain errors including punctuation, grammar, spelling, gender, and inappropriate words or phrases that pertain to the sytem. MEDICAL STUDENT Elective General Surgery (Green Surgery) Progress Note This note was generated by a medical student working under the supervision of a resident and attending physician. When co-signed, the physical exam findings, assessment, and plan as written below are are considered accurate. SERVICE DATE: 01/11/2025 Resident Supervision of Medical Student I personally saw and examined the patient. I reviewed the medical student's note. I agree with the medical student's assessment and plan unless otherwise noted below. - Patient doing well, pain controlled, tolerting food, and ambulating - Having ostomy output - anticipate DC today Signature: Yrn Tapia DO Date: 01/11/2025 Time: 7:13 AM Elective General Surgery (Green Surgery) Service Pager: For questions or concerns Mon-Fri 6a-5p please page [phone]. After 5pm and on Weekends and Holidays, please page [phone] if in ICU or [phone] if on RNF. SUBJECTIVE: NAEON. Pt resting comfortably. Denies fevers, chills, CP, SOB, headache, cough, muscle weakness, numbness, urinary difficulty, or any other complaints this AM. Tolerating diet DIET REGULAR Nausea No Emesis No Flatus Yes Bowel movement Yes - ostomy output Pain Controlled Yes Ambulating Yes OBJECTIVE: Vitals: Temp (24hrs), Av.4 ?C (97.5 ?F), Min:36.1 ?C (97 ?F), Max:36.9 ?C (98.5 ?F) BP 126/65 Pulse 75 Temp 36.7 ?C (98.1 ?F) (Oral) Resp 14 Ht 160 cm (5' 3) Wt 89.3 kg (196 lb 13.9 oz) SpO2 96% BMI 34.87 kg/m? O2 Therapy: Room Air IANDO: Date 01/10/25699 - 01/11/2565801/11/25699 - 01/12/25 0659 Shift 7338-2388 4656-3768 4556-7844 24 Hour Total 8777-4242 1247-2505 1885-7321 24 Hour Total INTAKE PO 240 240 PO 240 240 IV 100 500 600 Volume (mL) (ceFAZolin iv piggyback 2 g in D5W (iso-osmotic) 100 mL (ANCEF)) 100 100 Volume (mL) (lactated ringers iv infusion) 500 500 Shift Total 100 740 840 OUTPUT Urine 939 603 9678 Void (ml) 886 187 9578 Ostomy 25 25 Output (mL) (Colostomy 01/10/25 LLQ) 25 25 Blood 5 5 Estimated Blood loss 5 5 Shift Total 712 628 9716 Weight (kg) 89.3 89.3 89.3 89.3 89.3 89.3 89.3 MEDICATIONS Current Facility-Administered Medications Medication Dose Route Frequency pravastatin 40 mg tab(s) (PRAVACHOL) 40 mg ORAL AT BEDTIME ondansetron 4 mg tab(s) (ZOFRAN) 4 mg ORAL q 6 H PRN Or ondansetron (PF) 4 mg injection (ZOFRAN) 4 mg INTRAVENOUS q 6 H PRN acetaminophen 975 mg tab(s) (TYLENOL) 975 mg ORAL QID enoxaparin 40 mg injection (LOVENOX) 40 mg SUBCUTANEOUS DAILY traMADol 50 mg tab(s) (ULTRAM) 50 mg ORAL q 6 H PRN Labs: Recent Labs 01/11/25 0345 NA 140 K 3.8 CHLOR 108* CO2 20* BUN 14 CREAT 0.60 GLUC 167* ANION 12 CA 8.7 WBC 8.70 HB 11.4* HCT 32.9* PLT 271 Exam: GENERAL: resting comfortably, in no acute distress HEENT: normocephalic, atraumatic, EOMI NECK: trachea midline, no JVD LUNGS: Unlabored breathing, equal chest rise bilaterally CARDIAC: Regular rate and rhythm as above ABDOMEN: Soft, non-tender, non-distended, no masses or organomegaly EXTREMITIES: SANTANA, No deformities, No edema SKIN: Skin color, texture, turgor normal, No rashes or lesions NEURO: AANDOx3, CN II-XII grossly intact PSYCH: normal mood and affect ASSESSMENT AND PLAN: Active Hospital Problems Diagnosis Date Noted Attention to colostomy (HCC) 01/10/2025 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 Hospital Course: 01/10/2025: COLOSTOMY REVISION - General Plan: - Diet: Regular, pt tolerating - Ostomy consult, script in - Pain control: Tylenol QID, Tramadol PRN - Nausea control: Zofran PRN - DVT PPx: LVX - Home Medications: pravastatin 40 mg PO QHS - Encourage ambulation, incentive spirometry - DC home today? - Discussed with resident: Dr Arenas Follow up needs: TBD SIGNATURE: Mateo Chucky PATIENT NAME: Reina Malloy DATE: January 11, 2025 TIME: 5:30 AM Pager: (more content not included)...[facility] 01-10-2025 NoteHNO ID: [id number] Author: ANDREAS SHARPE APRN.CRNA Service: Anesthesiology Author Type: Nurse Clinical Engineering Manager Type: Anesthesia Procedure Notes Filed: 01/10/2025 14:36 Note Text: ANESTHESIOLOGY PROCEDURE NOTE Airway General Information Procedure Start Time/Medication Administration: 01/10/2025 2:23 PM Procedure End Time: 01/10/2025 2:26 PM Patient location during procedure: OR Timeout Performed Pre-procedure: timeout performed Consent Obtained: Yes Patient identity confirmed: arm band and patient Staffing TRANSFORMER TESTER: Andreas Sharpe APRN.TRANSFORMER TESTER Performed by: TRANSFORMER TESTER Indications and Patient Condition Indications for airway management: anesthesia and airway protection Preoxygenated: yes anesthesia circuit Patient position: sniffing Method: asleep Difficult Mask: No Final Airway Details Final airway type: endotracheal airway Final Endotracheal Airway: ETT Cuffed: yes Successful intubation technique: direct laryngoscopy Endotracheal tube insertion site: oral Blade: Primitivo Blade size: #3 ETT size (mm): 7.0 Measured from: lips Measurement (cm): 20 Placement verified by: chest auscultation and capnometry Cormack-Lehane Classification: grade I - full view of glottis Number of attempts at approach: 1 Airway not difficult SIGNATURE: Andreas Sharpe APRN.CRNA PATIENT NAME: Reina Malloy DATE: January 10, 2025 TIME: 2:36 PM CSN: [id number] [facility]05-21-2025 NoteHNO ID: [id number] Author: MAYO, DEYANIRA, COMPLIANCE MANAGER.DIRECT MAIL COORDINATOR Service: ? Author Type: Nurse Practitioner Type: Progress Notes Filed: 01/10/2025 07:29 Note Text: HANDP completed on 01/03/2025 by 01/03/2025.[facility]05-14-2025 Telephone encounter Note* Telephone Encounter - Charity Schaefer - 01/03/2025 3:19 PM EDT Surgery Checklist Type: COLOSTOMY REVISION SIMPLE Admission Type: inpatient Anesthesia: General Date: 01/10/25 Arrival Time: 1:00 PM Surgery Time: 3:00 PM Location: [facility] Surgery information given at appointment. Charity Schaefer [facility]05-14-[facility]25 Miscellaneous Notes* Telephone Encounter - Charity Schaefer - 01/03/2025 3:19 PM EDT Surgery Checklist Type: COLOSTOMY REVISION SIMPLE Admission Type: inpatient Anesthesia: General Date: 01/10/25 Arrival Time: 1:00 PM Surgery Time: 3:00 PM Location: [facility] Surgery information given at appointment. Charity Schaefer documented in this encounterWadsworth-Rittman [facility]05-14-2025 Instructions* Patient Instructions* Anastacio Cisneros MD - 01/03/2025 12:16 PM EDT COLONOSCOPY BOWEL PREPARATION INSTRUCTIONS GOLYTELY/NULYTELY/TRILYTE/COLYTE Your doctor has scheduled you for a colonoscopy. To have a successful colonoscopy, you must have a clean colon, that is empty. A clean colon allows your doctor to see the entire colon & diagnose issues like polyps or cancer. For doctors, a clean colon is like driving on a ramana day; a dirty colon like driving in a storm. It is very important that you follow these instructions exactly, or your colonoscopy might not be as effective, could be canceled, and you may need to do the bowel prep and the colonoscopy again. TRANSPORTATION REQUIREMENTS You are receiving IV sedation. For your safety, a responsible adult escort must accompany you to and from your procedure: Your adult escort MUST be present with you at check-in for your colonoscopy. Your adult escort MUST remain in the endoscopy area until you are discharged. Your adult escort MUST transport you home once you are discharged. You are NOT allowed to operate any form of transportation (i.e. drive a car, bicycle, etc.) or leave the Endoscopy Center ALONE. It is not safe to do so. If you cannot meet these requirements, your procedure will be canceled. MEDICATION REQUIREMENTS For your safety, certain medications will need to be stopped or adjusted before you can have your procedure: BLOOD THINNERS: If you take blood thinners, such as Coumadin (warfarin), Plavix (clopidogrel), Ticlid (ticlopidine hydrochloride), Agrylin (anagrelide), Xarelto (Rivaroxaban), Pradaxa (Dabigatran), Eliquis (Apixaban), or Effient (Prasugrel), contact the physician who is prescribing these medications at least 2 weeks prior to your procedure to discuss any necessary adjustments. DIABETES: If you take medications for diabetes, your dosage may need to be adjusted. If you are being treated for diabetes with insulin, diabetic pills, or other injectable medicationsdo not take your REGULAR dose after midnight on the day of your procedure. If you are taking any other types of insulin such as Lantus, Humalog, NPH (long- acting insulin), or70/30 insulin, take half your normal dose the day before your procedure. DIABETES/WEIGHT MANAGEMENT: If you take medications for weight-loss, your dosage may need to be adjusted Contact the doctor who prescribes this medication for further instructions. If you take medications for weight-loss like semaglutide (Ozempic, Wegovy, Rybelsus), dulaglutide (Trulicity), liraglutide (Victoza, Saxenda), exenatide (Byetta, Bydureon), or lixisenatide (Adylyxin), stop your medication 1 week prior to your procedure. If you take medications like canagliflozin (Invokana), dapagliflozin (Farxiga, Forxiga), empagliflozin (Jardiance), stop your medication 3 days prior to your procedure. If you take ertugliflozin (Steglatro) stop your medication 4 days prior to your procedure. IRON: If you take iron pills, STOP them 1 week BEFORE your procedure, may resume after. OTHER MEDS: May take all other medications (including aspirin, antibiotics, water pills / diureticslike Lasix or Metolozone, blood pressure meds, etc.) at their usual scheduled time with a sip of water. DIET REQUIREMENTS The day before your colonoscopy, you may have a clear liquid diet (see below). The day of your colonoscopy, you may continue a clear liquid diet until 3 hours before your colonoscopy. Within 3 hours of your colonoscopy, take only any medications (as above) with a sip of water. Clear Liquid Diet Broth (chicken, beef or vegetable broth or bullion. Just the broth, no solids). Water Coffee or Tea (NO milk or creamer), but sugar and sugar substitutes are allowed. Clear liquids including clear, yellow, green, blue (NO red, NO orange, NO purple) Sodas / soft drinks Gatorade or other sports drinks Cortez-Aid or flavored drinks Plain Jell-O or other gelatins Fruit juice (strained; no-pulp) Popsicles or hard candy BOWEL PREPARATION (GOLYTELY/NULYTELY/TRILYTE/COLYTE) Split Dosing Bowel Prep: This means drinking your bowel prep in two doses. Split dosing helps cleanyour colon better and makes it less likely that your procedure will be canceled. Fill your prescription for Golytely/Nulytely/Trilyte/Colyte: The afternoon before your colonoscopy, mix the solution and refrigerate. You may add the flavor pack (if present) that came with the bowel preparation. Do not add ice, sugar, or other flavorings to the solution. You will drink your prep in two doses, by several hours. On the evening before your colonoscopy: 1. 6 PM drink the first half of the bowel preparation solution. Drink one 8-ounce glass every 15 minutes. 2. Six hours before your colonoscopy, drink the second half of the solution. Drink one 8-ounce glass every 15 minutes. 3. You may continue a clear liquid diet until 3 hours before your colonoscopy. Bowel prep can work differently from person to person. Some people's bowels move slowly and they may need different instructions. Please see your doctor in office or virtually for personalized bowel prep instructions if you have: Medical condition that needs special accommodations Had a poor bowel prep results or failed bowel prep attempts in the past. Had difficulty with anesthesia during the procedure. FREQUENTLY ASKED QUESTIONS Q: What if I suffer from constipation? A: Recommend taking extra laxatives to resolve your constipation days prior to entering the bowel prep day. Q: What if have had prior poor preps results in past? A: Contact your physician as you will likely need additional bowel prep instructions. Q: What if I have motility issues like Parkinson's, MS (multiple sclerosis), wheelchair dependent, etc.? or on medications that slow bowel emptying (narcotics, gabapentin, anticholinergic medicationsetc.) A: Contact your physician as you will likely need extra time and additional laxatives to complete your bowel prep. Q: What if I cannot drink large volume of liquid? A: Start your prep 2-3 hours earlier to allow yourself more time to complete the entire prep. Q: What if I can't finish my bowel prep? A: If you cannot finish your entire bowel prep, it is likely that your colonoscopy will need to be rescheduled due to poor prep quality. Q: What if I had bariatric surgery? Do I still have to complete the entire prep? A: Yes, gastric bypass surgery involves the stomach & small bowel. You may need to drink smaller amounts, slower (may need more time to complete your bowel prep). Gastric bypass does not alter the length of your colon so you will need to complete the entire bowel prep, it may just take longer time to complete it. Q: What if I am on dialysis? A: Please consult your qm consultant prior to scheduling to get instructions pertinent to you. In general, dialysis patients take the Grow [employer] bowel prep and have the procedure same day of their dialysis (colonoscopy in AM, dialysis in PM). Q: How do I know if something is considered as clear liquid diet? A: If you can pour it in a glass and you can see through it, it is considered clear liquid Q: Can I eat nuts, seeds, beans, popcorn, dried fruits, vegetables & fruits that have skin peel? A: No, you will need to not eat these items starting 3 days prior to procedure. Q: Can I take Uber/Lyft/taxi/bus home? A: An adult MUST be present with you at check-in for your colonoscopy and remain in the endoscopy area until you are discharged. You can take Uber home only if this adult escort is with you at check in, remain in the endoscopy area until you are discharged, and takes the Uber with you to home. Q: Can I sleep it off here and drive myself home? A: No, you must have an adult with you at time of procedure check in, remain in the endoscopy center during your procedure, and drive you home. You cannot drive a vehicle after your procedure the rest of the day. documented in this encounterWadsworth-[facility]05-14-2025 NoteHNO ID: [id number] Author: ANASTACIO CISNEROS MD Service: ? Author Type: Physician Type: Progress Notes Filed: 01/03/2025 12:21 Note Text: Anastacio Cisneros M.D. 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 My final recommendations will be communicated back to the requesting physician by way of shared Medical record or letter to requesting physician via electronic or [place] mail. The patient is a pleasant 64-year-old female who in October was taking a vacation in [place] and developed her first ever episode of diverticulitis, presenting to the hospital with perforation and undergoing an emergent surgery which included sigmoid colectomy and creation of a colostomy. She denies any pain at this point and generally feels things healed well. Her stoma had been pretty functional but over the last few weeks she has noticed the aperture closing down significantly to the point that she is worried she will not be able to eat and drink. She has plans to go back for reversal surgery with her surgeon in May, trying to get to 6 months time point. She has never had a prior colonoscopy and there was discussion of getting this while she is home Review of Systems Constitutional: Negative for chills, fever and weight loss. HENT: Negative for congestion, ear pain, hearing loss, sinus pain and sore throat. Eyes: Negative for blurred vision, double vision and pain. Respiratory: Negative for cough, shortness of breath and wheezing. Cardiovascular: Negative for chest pain, palpitations and leg swelling. Gastrointestinal: Positive for constipation. Negative for abdominal pain, blood in stool, diarrhea, heartburn, nausea and vomiting. Genitourinary: Negative for dysuria, frequency and urgency. Musculoskeletal: Negative for back pain, joint pain and neck pain. Skin: Negative for itching and rash. Neurological: Positive for dizziness. Negative for weakness and headaches. Endo/Heme/Allergies: Negative for environmental allergies. Does not bruise/bleed easily. Psychiatric/Behavioral: Negative for depression and memory loss. The patient is not nervous/anxious and does not have insomnia. No past medical history on file. PAST SURGICAL HISTORY Procedure Laterality Date COLOSTOMY 10/28/2024 [place] Social History Tobacco Use Smoking status: Former Types: Cigarettes Passive exposure: Past Smokeless tobacco: Never Substance Use Topics Alcohol use: Not Currently Drug use: Never No family history on file. The ROS, medical, surgical, family, and social history were reviewed by Anastacio Cisneros MD ALLERGIES Not on File Current Outpatient Medications Medication Sig amLODIPine (NORVASC) 5 mg tablet Take 1 tablet by mouth once daily. ELIQUIS 5 mg tab(s) Take 1 tablet by mouth every 12 hours. losartan (COZAAR) 50 mg tablet Take 1 tablet by mouth once daily. pravastatin (PRAVACHOL) 40 mg tablet Take 40 mg by mouth daily at bedtime. polyethylene glycol 3350 (MIRALAX ORAL) Take by mouth. peg 3350-Electrolytes (GOLYTELY) 236-22.74-6.74 -5.86 gram suspension Take 4,000 mL by mouth one time only for 1 dose. Refer to printed prep instructions from your provider. No current facility-administered medications for this visit. OBJECTIVE BP 106/67 (BP Site: Right Arm, BP Position: Sitting, BP Cuff Size: Regular Adult) Pulse 71 Ht 160 cm (5' 3) Wt 86.2 kg (190 lb) BMI 33.66 kg/m? BMI 33.66 kg/(m2) Physical Exam Constitutional: General: She is not in acute distress. Appearance: Normal appearance. She is not ill-appearing. Cardiovascular: Rate and Rhythm: Normal rate and regular rhythm. Heart sounds: Normal heart sounds. No murmur heard. No friction rub. No gallop. Pulmonary: Effort: Pulmonary effort is normal. No respiratory distress. Breath sounds: Normal breath sounds. No wheezing or rales. Abdominal: General: There is no distension. Palpations: Abdomen is soft. There is no hepatomegaly. Tenderness: There is no abdominal tenderness. Comments: Midline incision is well-healed. Her colostomy is in the left lower quadrant, with the aperture narrowed too small to accommodate a pinky finger, about 7 mm Musculoskeletal: General: No deformity. Normal range of motion. Skin: General: Skin is warm and dry. Findings: No rash. Neurological: Mental Status: She is alert. Coordination: Coordination normal. Gait: Gait normal. Psychiatric: Mood and Affect: Mood normal. Judgment: Judgment normal. Plan ASSESSMENT/PLAN: 1. Diverticulitis - ICD9: 562.11, ICD10: K57.92 - COLONOSCOPY DIAGNOSTIC - PEG 3350-ELECTROLYTES 236 GRAM-22.7 (more content not included)...[facility]05-14-2025 History of Present illness Narrative* Anastacio Cisneros MD - 01/03/2025 11:23 AM EDT Images from the original note were not included. Anastacio Cisneros M.D. Colon & Rectal Surgery [address] [facility], [address] [place] [id number] VLADIMIR Malloy is a 64 year old White female s/p Lind's procedure for diverticulitis with colostomystenosis HPI The patient was referred by [address] [address] for my consultation regarding colostomy stenosis. My final recommendations will becommunicated back to the requesting physician by way of shared Medical record or letter to requesting physician via electronic or US mail. The patient is a pleasant 64-year-old female who in October was taking a vacation in [place] and developed her first ever episode of diverticulitis, presenting to the hospital with perforation and undergoing an emergent surgery which included sigmoid colectomy and creation of a colostomy. She denies any pain at this point and generally feels things healed well. Her stoma had been pretty functional but over the last few weeks she has noticed the aperture closing down significantly to the point that she is worried she will not be able to eat and drink. She has plans to go back for reversal surgery with her surgeon in May, trying to get to 6 months time point. She has never had a prior colonoscopy and there was discussion of getting this while she is home Review of Systems Constitutional: Negative for chills, fever and weight loss. HENT: Negative for congestion, ear pain, hearing loss, sinus pain and sore throat. Eyes: Negative for blurred vision, double vision and pain. Respiratory: Negative for cough, shortness of breath and wheezing. Cardiovascular: Negative for chest pain, palpitations and leg swelling. Gastrointestinal: Positive for constipation. Negative for abdominal pain, blood in stool, diarrhea,heartburn, nausea and vomiting. Genitourinary: Negative for dysuria, frequency and urgency. Musculoskeletal: Negative for back pain, joint pain and neck pain. Skin: Negative for itching and rash. Neurological: Positive for dizziness. Negative for weakness and headaches. Endo/Heme/Allergies: Negative for environmental allergies. Does not bruise/bleed easily. Psychiatric/Behavioral: Negative for depression and memory loss. The patient is not nervous/anxiousand does not have insomnia. No past medical history on file. PAST SURGICAL HISTORY Procedure Laterality Date COLOSTOMY 10/28/2024 [place] Social History Tobacco Use Smoking status: Former Types: Cigarettes Passive exposure: Past Smokeless tobacco: Never Substance Use Topics Alcohol use: Not Currently Drug use: Never No family history on file. The ROS, medical, surgical, family, and social history were reviewed by Anastacio Cisneros MD ALLERGIES Not on File Current Outpatient Medications Medication Sig amLODIPine (NORVASC) 5 mg tablet Take 1 tablet by mouth once daily. ELIQUIS 5 mg tab(s) Take 1 tablet by mouth every 12 hours. losartan (COZAAR) 50 mg tablet Take 1 tablet by mouth once daily. pravastatin (PRAVACHOL) 40 mg tablet Take 40 mg by mouth daily at bedtime. polyethylene glycol 3350 (MIRALAX ORAL) Take by mouth. peg 3350-Electrolytes (GOLYTELY) 236-22.74-6.74 -5.86 gram suspension Take 4,000 mL by mouth one time only for 1 dose. Refer to printed prep instructions from your provider. No current facility-administered medications for this visit. OBJECTIVE BP 106/67 (BP Site: Right Arm, BP Position: Sitting, BP Cuff Size: Regular Adult) Pulse 71 Ht 160 cm (5' 3) Wt 86.2 kg (190 lb) BMI 33.66 kg/m BMI 33.66 kg/(m^2) Physical Exam Constitutional: General: She is not in acute distress. Appearance: Normal appearance. She is not ill-appearing. Cardiovascular: Rate and Rhythm: Normal rate and regular rhythm. Heart sounds: Normal heart sounds. No murmur heard. No friction rub. No gallop. Pulmonary: Effort: Pulmonary effort is normal. No respiratory distress. Breath sounds: Normal breath sounds. No wheezing or rales. Abdominal: General: There is no distension. Palpations: Abdomen is soft. There is no hepatomegaly. Tenderness: There is no abdominal tenderness. Comments: Midline incision is well-healed. Her colostomy is in the left lower quadrant, with the aperture narrowed too small to accommodate a pinky finger, about 7 mm Musculoskeletal: General: No deformity. Normal range of motion. Skin: General: Skin is warm and dry. Findings: No rash. Neurological: Mental Status: She is alert. Coordination: Coordination normal. Gait: Gait normal. Psychiatric: Mood and Affect: Mood normal. Judgment: Judgment normal. Plan ASSESSMENT/PLAN: 1. Diverticulitis - ICD9: 562.11, ICD10: K57.92 - COLONOSCOPY DIAGNOSTIC - PEG 3350-ELECTROLYTES 236 GRAM-22.74 GRAM-6.74 GRAM-5.86 GRAM SOLUTION She will need a colonoscopy before reversal surgery later this year, and we will go ahead and orderthat so she can have that set up. I do agree that waiting longer is worthwhile at this point as sheis only 2 months out from her surgery and it would be pretty early to go back for reversal. I thinkin the short-term the best option would be a local revision and did discuss with her that this could make the stoma more recessed but that we would bring the skin down to a healthy area of the colon.We would potentially have to change her ostomy appliance to suit this better INFORMED CONSENT Reina Malloy Medical Record: [id number] Date: 01/03/2025 Procedure: Colostomy revision The risks, benefits and anticipated outcomes of the procedure, the risks and benefits of the alternatives to the procedure and the roles and tasks of the personnel to be involved were discussed with the patient and the patient consents to the procedure and agrees to proceed. I verify that I personally obtained Reina Malloy's consent. Anastacio Cisneros MD Dept of [facility] SURGERY DEPARTMENT Follow up: Return for Surgery. Anastacio Cisneros M.D. Please Note: This office note has been created using Fanplayr, a speech recognition software program, and may contain errors including punctuation, grammar, spelling, gender, and inappropriate words or phrases that pertain to the sytem. documented in this encounterWadsworth[facility] Medical Records Department [address] [place] [address] History Physical Exam 12/29/24 1653 MR#: [id number] Acct: [id number] Name: REINA MALLOY Rep #: [id number] : 1960 64 From: Stu Woo MD PCP: Dr. Corbin Vidal DO Status:DEP ER Location: ED HPI - General General Date of Service: 12/29/24 Chief Complaint: Decreasing size of colostomy HPI Narrative REINA MALLOY, is a 64 F who presents to [facility] ER with complaints of rapidly decreasing stoma size. She presents today with her and he shares that over the last 4 days he observed a rapid decrease in the size of her stoma as he is the primary person that performs the ostomy care. Mrs. Malloy reports that she has had ongoing bowel movements but the overall size has seemed smaller. Patient reports that she underwent a colon resection with a colostomy creation on 10/28/2024 after she had perforated diverticulitis while in [place]. She unfortunately experienced a perioperative pulmonary embolus and was placed on Eliquis. I was contacted by emergency department after emergency medicine was unable to digitize the stoma with their little finger. I requested CT imaging of the abdomen pelvis be performed with both oral and IV contrast. This study showed fecal retention in the distal colon but no evidence of obstruction. [facility] Medical History History of diverticulitis of colon Colostomy in place Hyperlipidemia HTN (hypertension) Home Medications ???Medication ???Instructions ???Recorded ???Last Taken ???Type amlodipine 5 mg tablet 5 mg PO DAILY blood pressure 11/1611/16/24 History fenofibrate 160 mg tablet 160 mg PO DAILY cholesterol Unknown History losartan 50 mg tablet 50 mg PO DAILY blood pressure 10/2211/16/24 History pravastatin 40 mg tablet 40 mg PO QHS cholesterol 11/16/24 11/15/24 History apixaban 5 mg (74 tabs) tablets in See Rx Instructions PO .COMPLEX 11/17/24 Unknown Rx a dose pack (Eliquis DVT-PE Treat #74 tabs 30D Start) Allergy/AdvReac Type Severity Reaction Status Date / Time No Known Allergies Allergy Verified 12/29/24 09:24 Social History Smoking Status: Never smoker Vital Signs Vital Signs Vital Signs: 12/29/24 09:24 12/29/24 11:37 12/29/24 13:00 Temperature 97.8 F Temperature Source Oral Pulse Rate 71 57 L 60 Respiratory Rate 19 H 14 15 Blood Pressure 134/82 H 124/69 H 125/78 H Blood Pressure Mean 99 87 93 Pulse Ox 98 99 98 Oxygen Delivery Method Room Air Room Air 12/29/24 15:00 12/29/24 16:52 Temperature 96.9 F L Temperature Source Pulse Rate 60 77 Respiratory Rate 14 17 Blood Pressure 119/78 127/74 H Blood Pressure Mean 91 91 Pulse Ox 99 99 Oxygen Delivery Method Weight Weight: 195 lb 12.8 oz Body Mass Index (BMI) 33.6 Physical Exam Const alert, oriented x3, no apparent distress and well nourished Resp normal respiratory effort GI GI Narrative: Mildly obese, well-healed midline laparotomy incision, no visible herniation, nondistended, soft, left lower quadrant colostomy located with exceptionally small stoma estimated no more than 2 cm in diameter. Mucosa is visible but there is certainly an appearance of stomal retraction. I attempted to digitized the opening with my little finger but was unable to completely intubate the area. Thin ribbonlike stool was witnessed coming from the ostomy at several points during the exam. Results Lab / Micro Data 12/29/24 11:13 12/29/24 11:13 Labs: Laboratory Results - last 24 hr 12/29/24 11:13: WBC 6.1, RBC 3.87 L, Hgb 12.0, Hct 34.5 L, MCV 89.1, MCH 31.0, MCHC 34.8, RDW Std Deviation 44.5 H, RDW Coeff of Sea 13.5, Plt Count 300, MPV 9.2, Immature Gran % (Auto) 0.200, Neut % (Auto) 46.1 L, Lymph % (Auto) 44.8 H, Hoke % (Auto) 6.6, Eos % (Auto) 1.8, Baso % (Auto) 0.5, Absolute Neuts (auto) 2.8, Absolute Lymphs (auto) 2.73, Nucleated RBC % 0, Sodium 141, Potassium 3.8, Chloride 108, Carbon Dioxide 22.9, Anion Gap 10, BUN 17, Creatinine 0.73, Estim Creat Clear Calc 86.21, Est GFR (MDRD) Non-Af 93, BUN/Creatinine Ratio 23.0 H, Glucose 98, Calcium 9.5 Imaging Radiology Impression Abdomen/Pelvis CT 12/29/24 10:59 IMPRESSION: 1. Hepatomegaly with fatty infiltration. 2. Cholelithiasis. 3. Fecal retention in the colon consistent with constipation. 4. Umbilical hernia containing fat. Reading Location: [facility] Assessment Plan Assessment/Plan (1) Colostomy dysfunction: PLAN: Patient is 64-year-old female 2-month status post Lind's procedure who presents with evidence of st (more content not included)...[facility] 12-29-2024 Discharge summary [facility] Medical Records Department [address] [place] [address] Emergency Department Summary 12/29/24 MR#: [id number] Acct: [id number] Name: REINA MALLOY Rep #:[id number] : 1960 64 From: Taylor Ortiz PCP: Dr. Corbin Vidal, DO Status:REG ER Location: ED HPI History of Present Illness Chief Complaint: Wound Informant: patient Narrative Narrative: Patient is a 64-year-old female with history of PE (on Eliquis) as well as perforated diverticulitis status post resection and anastomosis with colostomy. This was performed and [facility] in October of this year. She is presenting today for of this last week her who normally changes her bagsnoticed that her stoma is getting smaller. Her stools have been more like ribbon. She feels that she is maybe had some decrease stool output but is stillpassing stool and gas. She started to feel little bloated but nothing too bad. No associated nausea and vomiting. Came in for further evaluation. She is hopeful to have her ostomy reversed in May. Came in for further evaluation. Denies any fever or chills. Denies any black or blood in her stool. Has no abdominal pain. Notes that last week she did take some MiraLAX. [facility] Medical History History of diverticulitis of colon Colostomy in place Hyperlipidemia HTN (hypertension) Home Medications ?Medication ?Instructions ?Recorded ?Last Taken ?Type amlodipine 5 mg tablet 5 mg PO DAILY blood pressure 11/16/24 11/16/24 History fenofibrate 160 mg tablet 160 mg PO DAILY cholesterol 11/16/24 Unknown History losartan 50 mg tablet 50 mg PO DAILY blood pressur e 11/16/24 11/16/24 History pravastatin 40 mg tablet 40 mg PO QHS cholesterol 11/15/24 History apixaban 5 mg (74 tabs) tablets in See Rx Instructions PO .COMPLEX 11/17/24 Unknown Rx a dose pack (Eliquis DVT-PE Treat #74 tabs 30D Start) Allergy/AdvReac Type Severity Reaction Status Date / Time No Known Allergies Allergy Verified 12/29/24 09:24 Social History Smoking Status: Never smoker ROS ROS ED Constitutional Constitutional ED: Denies chills or fever(s) Respiratory/Chest Respiratory/Chest: Denies cough Gastrointestinal Gastrointestinal: Reports other Details: Narrowing of her stoma, slightly decreased stool output ; Denies abdominal pain, diarrhea, nausea or vomiting Musculoskeletal Musculoskeletal: Denies arthralgias or myalgias Neurologic Neurologic: Denies weakness Hematologic/Lymphatic Hematologic/Lymphatic: Reports easy bleeding, easy bruising and other Details: On Eliquis EXAM Physical Exam Const Vital Signs: 12/29/24 09:24 12/29/24 11:37 12/29/24 13:00 Temperature 97.8 F Temperature Source Oral Pulse Rate 71 57 L 60 Respiratory Rate 19 H 14 15 Blood Pressure 134/82 H 124/69 H 125/78 H Blood Pressure Mean 99 87 93 Pulse Ox 98 99 98 Oxygen Delivery Method Room Air Room Air 12/29/24 15:00 Temperature Temperature Source Pulse Rate 60 Respiratory Rate 14 Blood Pressure 119/78 Blood Pressure Mean 91 Pulse Ox 99 Oxygen Delivery Method Positive well nourished and well developed General Appearance ED: well developed and NAD HEENT Reports moist mucous membranes Neck supple Chest Wall inspection of chest normal and palpation of chest normal Resp normal respiratory effort and clear to auscultation bilaterally Cardio regular rate and regular rhythm GI non-tender and non-distended GI Narrative: Colostomy in place on the left side of the abdomen. Bag is removed. The stoma appears slightly prolapsed and is quite narrow. I cannot even fit my pinky through it. There is brown stool in her ostomybag. It is nontender. No active bleeding. Surrounding skin is soft and nontender. Abdomen is soft and nontender. Neuro oriented x3 Sensorium / Orientation: alert Motor Exam: Negative for general weakness Psych mental status grossly normal Skin no rashes or lesions noted and no wounds MDM MDM MDM Narrative Medical decision making narrative: Patient evaluated for concern of closure of her stoma at her colostomy site. She continues stool output but has had decreased output and states it has been more ribbonlike. The colostomy was placed in October of this year so relatively new. She does not have associated tenderness. Physical exam largely benign however the stoma is very tight. I did speak with Dr. Woo, general surgery. He requested CT abdomen pelvis with IV and oral contrast to ensure there is no obstruction. He will come down into evaluate the patient. CT shows degree of constipation with no signs of obstruction or other acute process. He evaluated the patient at the bedside. He is able to dilate her stoma. Will have her follow-up with colorectal at [facility], Dr. Cisneros. She willfollow-up this coming Wednesday. In the meantime stick to a liquid diet. Counseled on return precautions including decreased stool output, abdominal pain, nausea, vomiting or any other concerns. They are in agreement. Discharged home in stable condition. Lab Data Attestation: I reviewed the patient's lab results. Labs: Laboratory Results - last 24 hr 12/29/24 11:13 WBC 6.1 RBC 3.87 L Hgb 12.0 Hct 34.5 L MCV 89.1 MCH 31.0 MCHC 34.8 RDW Std Deviation 44.5 H RDW Coeff of Sea 13.5 Plt Count 300 MPV 9.2 Immature Gran % (Auto) 0.200 Neut % (Auto) 46.1 L Lymph % (Auto) 44.8 H Hoke % (Auto) 6.6 Eos % (Auto) 1.8 Baso % (Auto) 0.5 Absolute Neuts (auto) 2.8 Absolute Lymphs (auto) 2.73 Nucleated RBC % 0 Sodium 141 Potassium 3.8 Chloride 108 Carbon Dioxide 22.9 Anion Gap 10 BUN 17 Creatinine 0.73 Estim Creat Clear Calc 86.21 Est GFR (MDRD) Non-Af 93 BUN/Creatinine Ratio 23.0 H Glucose 98 Calcium 9.5 Radiography Diagnostic Testing: Clinical Impression(s) from Imaging Studies Abdomen/Pelvis CT 12/29/24 10:59 IMPRESSION: 1. Hepatomegaly with fatty infiltration. 2. Cholelithiasis. 3. Fecal retention in the colon consistent with constipation. 4. Umbilical hernia containing fat. Reading Location: [facility] Discharge Plan Triage Chief Complaint: Wound ED Provider: Taylor Sanz Dx/Rx/DC Orders Clinical Impression: Colostomy dysfunction Prescriptions: No Action losartan 50 mg tablet 50 mg PO DAILY pravastatin 40 mg tablet 40 mg PO QHS amlodipine 5 mg tablet 5 mg PO DAILY fenofibrate 160 mg tablet 160 mg PO DAILY Eliquis DVT-PE Treat 30D Start 5 mg (74 tabs) tablets,dose pack See Rx Instructions .ROUTE .COMPLEX Qty: 74 0RF Rx Instructions: orally per package directions Primary Care Provider: Corbin Vidal Referrals: Corbin Vidal DO [Primary Care Provider] - Anastacio Cisneros MD [Non-Staff] - Activity Restrictions/Additional Instructions: Please follow-up with colorectal surgery on Wednesday as discussed with Dr. Woo. If you develop any abdominal pain, difficulty passing stool, nausea or vomiting please return to the emergency room.In the meantime stick to a liquiddiet. Print Language: Lithuanian Disposition Disposition: Home, Self Care What to do if you have Problems For any increased pain, shortness of breath, bleeding, nausea or vomiting, chestpain, or any unexpected problems, contact your Primary Care Provider. Call [facility] ([phone]) or report tothe closest Emergency Room. Call 911 if necessary. 12/29/24 1646 Cosigner Signature (if applicable): CC: Dr. Corbin Vidal DO ~ Signed [facility]05-09-2025 Discharge summary Author Taylor Sanz [facility] Note Date/Time December 29, 2024 4:46pm [facility] Medical Records Department [address] [place] [address] Emergency Department Summary 12/29/24 MR#: [id number] Acct: [id number] Name: REINA MALLOY Rep #:[id number] : 1960 64 From: Taylor Ortiz PCP: Dr. Corbin Vidal DO Status:REG ER Location: ED HPI History of Present Illness Chief Complaint: Wound Informant: patient Narrative Narrative: Patient is a 64-year-old female with history of PE (on Eliquis) as well as perforated diverticulitis status post resection and anastomosis with colostomy. This was performed and [facility] in October of this year. She is presenting today for of this last week her who normally changes her bagsnoticed that her stoma is getting smaller. Her stools have been more like ribbon. She feels that she is maybe had some decrease stool output but is stillpassing stool and gas. She started to feel little bloated but nothing too bad. No associated nausea and vomiting. Came in for further evaluation. She is hopeful to have her ostomy reversed in May. Came in for further evaluation. Denies any fever or chills. Denies any black or blood in her stool. Has no abdominal pain. Notes that last week she did take some MiraLAX. [facility] Medical History History of diverticulitis of colon Colostomy in place Hyperlipidemia HTN (hypertension) Home Medications ?Medication ?Instructions ?Recorded ?Last Taken ?Type amlodipine 5 mg tablet 5 mg PO DAILY blood pressure 11/16/24 11/16/24 History fenofibrate 160 mg tablet 160 mg PO DAILY cholesterol 11/16/24 Unknown History losartan 50 mg tablet 50 mg PO DAILY blood pressur e 11/16/24 11/16/24 History pravastatin 40 mg tablet 40 mg PO QHS cholesterol 11/15/24 History apixaban 5 mg (74 tabs) tablets in See Rx Instructions PO .COMPLEX 11/17/24 Unknown Rx a dose pack ([employer] DVT-PE Treat #74 tabs 30D Start) Allergy/AdvReac Type Severity Reaction Status Date / Time No Known Allergies Allergy Verified 12/29/24 09:24 Social History Smoking Status: Never smoker ROS ROS ED Constitutional Constitutional ED: Denies chills or fever(s) Respiratory/Chest Respiratory/Chest: Denies cough Gastrointestinal Gastrointestinal: Reports other Details: Narrowing of her stoma, slightly decreased stool output ; Denies abdominal pain, diarrhea, nausea or vomiting Musculoskeletal Musculoskeletal: Denies arthralgias or myalgias Neurologic Neurologic: Denies weakness Hematologic/Lymphatic Hematologic/Lymphatic: Reports easy bleeding, easy bruising and other Details: On Eliquis EXAM Physical Exam Const Vital Signs: 12/29/24 09:24 12/29/24 11:37 12/29/24 13:00 Temperature 97.8 F Temperature Source Oral Pulse Rate 71 57 L 60 Respiratory Rate 19 H 14 15 Blood Pressure 134/82 H 124/69 H 125/78 H Blood Pressure Mean 99 87 93 Pulse Ox 98 99 98 Oxygen Delivery Method Room Air Room Air 12/29/24 15:00 Temperature Temperature Source Pulse Rate 60 Respiratory Rate 14 Blood Pressure 119/78 Blood Pressure Mean 91 Pulse Ox 99 Oxygen Delivery Method Positive well nourished and well developed General Appearance ED: well developed and NAD HEENT Reports moist mucous membranes Neck supple Chest Wall inspection of chest normal and palpation of chest normal Resp normal respiratory effort and clear to auscultation bilaterally Cardio regular rate and regular rhythm GI non-tender and non-distended GI Narrative: Colostomy in place on the left side of the abdomen. Bag is removed. The stoma appears slightly prolapsed and is quite narrow. I cannot even fit my pinky through it. There is brown stool in her ostomy bag. It is nontender. No active bleeding. Surrounding skin is soft and nontender. Abdomen is soft and nontender. Neuro oriented x3 Sensorium / Orientation: alert Motor Exam: Negative for general weakness Psych mental status grossly normal Skin no rashes or lesions noted and no wounds MDM MDM MDM Narrative Medical decision making narrative: Patient evaluated for concern of closure of her stoma at her colostomy site. She continues stool output but has had decreased output and states it has been more ribbonlike. The colostomy was placed in October of this year so relatively new. She does not have associated tenderness. Physical exam largely benign however the stoma is very tight. I did speak with Dr. Woo, general surgery. He requested CT abdomen pelvis with IV and oral contrast to ensure there is no obstruction. He will come down into evaluate the patient. CT shows degree of constipation with no signs of obstruction or other acute process. He evaluated the patient at the bedside. He is able to dilate her stoma. Will have her follow-up with colorectal at [facility], Dr. Cisneros. She willfollow-up this coming Wednesday. In the meantime stick to a liquid diet. Counseled on return precautions including decreased stool output, abdominal pain, nausea, vomiting or any other concerns. They are in agreement. Discharged home in stable condition. Lab Data Attestation: I reviewed the patient's lab results. Labs: Laboratory Results - last 24 hr 12/29/24 11:13 WBC 6.1 RBC 3.87 L Hgb 12.0 Hct 34.5 L MCV 89.1 MCH 31.0 MCHC 34.8 RDW Std Deviation 44.5 H RDW Coeff of Sea 13.5 Plt Count 300 MPV 9.2 Immature Gran % (Auto) 0.200 Neut % (Auto) 46.1 L Lymph % (Auto) 44.8 H Hoke % (Auto) 6.6 Eos % (Auto) 1.8 Baso % (Auto) 0.5 Absolute Neuts (auto) 2.8 Absolute Lymphs (auto) 2.73 Nucleated RBC % 0 Sodium 141 Potassium 3.8 Chloride 108 Carbon Dioxide 22.9 Anion Gap 10 BUN 17 Creatinine 0.73 Estim Creat Clear Calc 86.21 Est GFR (MDRD) Non-Af 93 BUN/Creatinine Ratio 23.0 H Glucose 98 Calcium 9.5 Radiography Diagnostic Testing: Clinical Impression(s) from Imaging Studies Abdomen/Pelvis CT 12/29/24 10:59 IMPRESSION: 1. Hepatomegaly with fatty infiltration. 2. Cholelithiasis. 3. Fecal retention in the colon consistent with constipation. 4. Umbilical hernia containing fat. Reading Location: [facility] Discharge Plan Triage Chief Complaint: Wound ED Provider: Taylor Sanz Dx/Rx/DC Orders Clinical Impression: Colostomy dysfunction Prescriptions: No Action losartan 50 mg tablet 50 mg PO DAILY pravastatin 40 mg tablet 40 mg PO QHS amlodipine 5 mg tablet 5 mg PO DAILY fenofibrate 160 mg tablet 160 mg PO DAILY Eliquis DVT-PE Treat 30D Start 5 mg (74 tabs) tablets,dose pack See Rx Instructions .ROUTE .COMPLEX Qty: 74 0RF Rx Instructions: orally per package directions Primary Care Provider: Corbin Vidal Referrals: Corbin Vidal DO [Primary Care Provider] - Anastacio Cisneros MD [Non-Staff] - Activity Restrictions/Additional Instructions: Please follow-up with colorectal surgery on Wednesday as discussed with Dr. Woo. If you develop any abdominal pain, difficulty passing stool, nausea or vomiting please return to the emergency room. In the meantime stick to a liquiddiet. Print Language: Lithuanian Disposition Disposition: Home, Self Care What to do if you have Problems For any increased pain, shortness of breath, bleeding, nausea or vomiting, chestpain, or any unexpected problems, contact your Primary Care Provider. Call [facility] ([phone]) or report to the closest Emergency Room. Call 911 if necessary. 12/29/24 1646 <Electronically signed by Taylor Sanz DO> Cosigner Signature (if applicable): CC: Dr. Corbin Vidal DO ~ Signed [facility] Work Phone: 1(624) 979-535705-09-2025 Radiology Diagnostic study note [facility] Imaging Services [address] [place] [address] Abdomen/Pelvis WITH Contrast MR#: [id number] Acct: [id number] Name: REINA MALLOY Rep #: [id number] : 1960 F 64 From: Nilam Solis MD PCP: Dr. Corbin Vidal DO Status: REG ER Study:Abdomen/Pelvis WITH Contrast Date of Ex am: 12/29/24 Exam# [id number] Ordering Dr: Tanika Sanz DO EXAM: CT Abdomen and Pelvis With Intravenous Contrast CLINICAL INDICATION: COLOSTOMY ABNORMALITY TECHNIQUE: Axial computed tomography images of the abdomen and pelvis with intravenous contrast. This CT exam was performed using one or more of the following dose reduction techniques: automated exposure control, adjustment of the mA and/or kV according to patient size, and/or use of iterative reconstruction technique. COMPARISON: No relevant prior studies available. FINDINGS: LUNG BASES: Left basilar atelectasis or scarring. ABDOMEN: LIVER: Hepatomegaly with fatty infiltration. GALLBLADDER AND BILE DUCTS: Cholelithiasis. No ductal dilation. PANCREAS: Unremarkable. No mass. No ductal dilation. SPLEEN: Unremarkable. No splenomegaly. ADRENALS: Unremarkable. No mass. KIDNEYS AND URETERS: Unremarkable. No solid mass. No hydronephrosis. STOMACH AND BOWEL: Fecal retention in the colon consistent with constipation. Left lower abdominal quadrant colostomy. No obstruction. No mucosal thickening. PELVIS: APPENDIX: No findings to suggest acute appendicitis. BLADDER: Unremarkable. No mass. REPRODUCTIVE: Unremarkable as visualized. ABDOMEN and PELVIS: INTRAPERITONEAL SPACE: Unremarkable. No free air. No significant fluid collection. BONES/JOINTS: No acute fracture. No dislocation. SOFT TISSUES: Umbilical hernia containing fat. VASCULATURE: Scattered calcified atherosclerotic disease of aorta. No abdominal aortic aneurysm. LYMPH NODES: Unremarkable. No enlarged lymph nodes. CT/Abdomen/Pelvis WITH Contrast IMPRESSION: 1. Hepatomegaly with fatty infiltration. 2. Cholelithiasis. 3. Fecal retention in the colon consistent with constipation. 4. Umbilical hernia containing fat. Reading Location: [facility] CC: Dr. Taylor Sanz DO; Dr. Corbin Vidal DO ~ Swing Ride Operator: Signed [facility]05-07-2025 Hospital Discharge instructions Additional Instructions Please follow-up with colorectal surgery on Wednesday as discussed with Dr. Woo. If you develop any abdominal pain, difficulty passing stool, nausea or vomiting please return to the emergency room. In the meantime stick to a liquid diet.[facility] Work Phone: [phone] 575-326803-28-2025 [facility] Medical Records Department [address] [place] [address] Discharge Summary 11/17/24 1308 MR#: [id number] Acct: [id number] Name: REINA MALLOY Rep #: [id number] : 1960 64 From: Faizan Mckenzie MD PCP: Dr. Corbin Vidal DO Status:DIS MOMO Location: [place] [address] Providers Date of Admission: 11/16/24 Primary Care Physician: Dr. Corbin Vidal DO Consultations 11/16/24 17:57 Consult: Onc/Wound/lease picker Routine Comment: Reason for Consult:: pt has ostomy Reason For Visit: NEW BILATERAL PE Diagnosis Discharge Diagnosis (1) Bilateral pulmonary embolism: Status: Acute Code(s): I26.99 - Other pulmonary embolism without acute cor pulmonale (2) HTN (hypertension): Status: Chronic Code(s): I10 - Essential (primary) hypertension (3) Hyperlipidemia: Status: Acute Code(s): E78.5 - Hyperlipidemia, unspecified (4) Colostomy in place: Status: Acute Code(s): Z93.3 - Colostomy status Medications at Discharge Home Medications amlodipine 5 mg tablet 5 mg PO DAILY blood pressure 11/16/24 fenofibrate 160 mg tablet 160 mg PO DAILY cholesterol 11/16/24 losartan 50 mg tablet 50 mg PO DAILY blood pressure 11/16/24 pravastatin 40 mg tablet 40 mg PO QHS cholesterol 11/16/24 apixaban 5 mg (74 tabs) tablets in a dose pack (Eliquis DVT-PE Treat 30D Start) See Rx Instructions PO .COMPLEX #74 tabs 11/17/24 Hospital Course Operations None Procedures 2-D Echocardiogram Summary of Care Provided Minutes Spent on Discharge: 36 Hospital Course: Per HPI: REINA MALLOY, is a 64-year-old female with history of hypertension hyperlipidemia and recent perforated diverticulum in [place] requiring colostomy 3 weeks ago presented [facility] ED 11/16/2024 due to back pain. She was vitally stable and labs unremarkable aside from a hemoglobin of 11.8 however upon further discussion with the ED provider patient did report pain was worse with inspiration and felt deeper than a superficial back pain. CTA was obtained which showed multiple bilateral pulmonary emboli with concern for right heart strain and bibasilar consolidative opacities which were possibly due to pulmonary edema, pneumonia, or pulmonary infarct as well as trace bilateral pleural effusions. BNP and troponin within normal limits however given this concerns and the multiple emboli hospitalist contacted to admit under observation on blood thinners. Patient evaluated at bedside. She reports that she had been in her usual health until last night when she suddenly had a deep back pain with difficulty taking a deep breath, reports today it was not improving prompting her to come to the ED, denies any abdominal pain or problems with her ostomy, reports a little bit of a dry cough/clearing of her throat if she gets a tickle but no productive cough, no fevers or chills. Patient denies any swelling in her legs or any other problems since she left [place]. Hospital Course: 1. Bilateral pulmonary embolism???64-year-old female presents to the hospital with increasing shortness of breath and back pain. She was found to have bilateral pulmonary embolisms on CTA that was demonstrating possible right heart strain despite no troponin elevation or tachycardia and a normal proBNP. This is likely provoked as she rode the bus from home down to [place] and then while in [place] had a perforated diverticulum that required colectomy and colostomy and then they flew back home. Colostomy was about 3 weeks ago. This morning she was on room air at rest and did not require any oxygen with ambulation. She denied any further chest pain, lightheadedness, dizziness. She was transitioned to p.o. Eliquis. I discussed with her the plan for possible discharge today and she and her expressed understanding of the risk and benefits to going home and would like to go home today. An echo is pending but I do not feel he will elucidate much given her stability. CTA does demonstrate possible pulmonary infarct versus pulmonary edema however given her stable vital signs and her being anticoagulated these will resolve in time. Will continue with incentive spirometry on discharge as well. She remains afebrile without a leukocytosis. I will have her follow-up with hematology as an outpatient in a couple months as well. 2. Essential hypertension, hyperlipidemia are all chronic medical conditions which complicate her care. Her home medications were continued where appropriate Physical Exam Narrative General: Alert, Oriented x3, Cooperative, No apparent distress HEENT: Atraumatic, PERRLA, EOMI, Normocephalic Oral: Moist Mucosa Neck: Supple, No JVD Lungs: Diminished, Normal air movement, No rhonchi, No wheeze, No rales Cardiovascular: Regular rate, Regular Rhythm, Normal S1, Normal S2, No murmurs Abdomen: Soft, Non Tender, Non-Distended, No Hepat (more content not included)...[facility]03-28-2025 Discharge summary Author Faizan Mckenzie [facility] Note Date/Time November 17, 2024 10: 40am [facility] Medical Records Department [address] [place] [address] Instructions for Home/Discharge Instructions 11/17/24 1034 MR#: [id number] Acct: [id number] Name: REINA MALLOY Rep #:[id number] : 1960 64 From: Faizan monterroso MD PCP: Dr. Corbin Vidal, Status:ADM IN O Discharge Instructions Diet Discharge Diet: Low fat / Low cholesterol DC O2, CPAP, BIPAP needs Home O2 Discharge instructions: No Dressing / Incision Discharge Activity: Return to Normal Activity Dressing / Incision Call your doctor if you observe: Fever of 101 or Higher, Shortness of breath, Dizziness, Fainting spells, Swelling in the ankles, Chest pain and Increased palpitations (irregular heartbeat) Follow Up Care Test Results: Test results from this visit will be discussed in further detail at your follow- up appointment, if applicable. Discharge Plan Admission Admit Date/Time: 11/16/24 17:01 Attending Provider: Faizan Mckenzie Primary Care Provider: Corbin Vidal Consulting Providers: Melania Parker Instructions Patient Instructions: Embolism Pulmonary Dc, DVT/PE Discharge instruction sheet Discharge Orders/Prescriptions Prescriptions: New Eliquis DVT-PE Treat 30D Start 5 mg (74 tabs) tablets,dose pack See Rx Instructions .ROUTE .COMPLEX Qty: 74 0RF Rx Instructions: orally per package directions Continued losartan 50 mg tablet 50 mg PO DAILY pravastatin 40 mg tablet 40 mg PO QHS amlodipine 5 mg tablet 5 mg PO DAILY fenofibrate 160 mg tablet 160 mg PO DAILY Referrals / Follow Up: Kristie Monique MD [Med Staff - Active Staff] - Within 3 Months Corbin Vidal DO [Primary Care Provider] - Within 1 Week Disposition Disposition (needs filled in before D/C Order can be placed): Home, Self Care 11/17/24 1041<Electronically signed by Faizan Mckenzie MD>Faizan Mckenzie MD CC: Dr. Corbin Vidal DO; Dr. Melania Parker MD ~ Signed [facility] Work Phone: 1(261) [phone] Discharge summary [facility] Medical Records Department [address] [place] [address] Instructions for Home/Discharge Instructions 11/17/24 1034 MR#: [id number] Acct: [id number] Name: REINA MALLOY Rep #:[id number] : 1960 64 From: Faizan monterroso MD PCP: Dr. Corbin Vidal DO Status:ADM IN O Discharge Instructions Diet Discharge Diet: Low fat / Low cholesterol DC O2, CPAP, BIPAP needs Home O2 Discharge instructions: No Dressing / Incision Discharge Activity: Return to Normal Activity Dressing / Incision Call your doctor if you observe: Fever of 101 or Higher, Shortness of breath, Dizziness, Fainting spells, Swelling in the ankles, Chest pain and Increased palpitations (irregular heartbeat) Follow Up Care Test Results: Test results from this visit will be discussed in further detail at your follow- up appointment, if applicable. Discharge Plan Admission Admit Date/Time: 11/16/24 17:01 Attending Provider: Faizan Mckenzie Primary Care Provider: Corbin Vidal Consulting Providers: Melania Parker Instructions Patient Instructions: Embolism Pulmonary Dc, DVT/PE Discharge instruction sheet Discharge Orders/Prescriptions Prescriptions: New Eliquis DVT-PE Treat 30D Start 5 mg (74 tabs) tablets,dose pack See Rx Instructions .ROUTE .COMPLEX Qty: 74 0RF Rx Instructions: orally per package directions Continued losartan 50 mg tablet 50 mg PO DAILY pravastatin 40 mg tablet 40 mg PO QHS amlodipine 5 mg tablet 5 mg PO DAILY fenofibrate 160 mg tablet 160 mg PO DAILY Referrals / Follow Up: Kristie Monique MD [Med Staff - Active Staff] - Within 3 Months Corbin Vidal DO [Primary Care Provider] - Within 1 Week Disposition Disposition (needs filled in before D/C Order can be placed): Home, Self Care 11/17/24 1041Faizan Mckenzie MD CC: Dr. Corbin Vidal DO; Dr. Melania Parker MD ~ Signed [facility]03-27-2025 Discharge summary Author Uriel Ramirez [facility] Note Date/Time November 16, 2024 5:2 9pm [facility] Medical Records Department [address] [place] [address] Emergency Department Summary 11/16/24 MR#: [id number] Acct: [id number] Name: REINA MALLOY Rep #:[id number] : 1960 64 From: Uriel Ortiz PCP: Dr. Corbin Vidal DO Status:REG ER Location: ED HPI History of Present Illness Chief Complaint: Back PFSH PFSH Home Medications ?Medication ?Instructions ?Recorded ?Last Taken ?Type amlodipine 5 mg tablet 5 mg PO DAILY 11/16/2411/16 History losartan 50 mg tablet 50 mg PO DAILY 11/16/2410/22 History pravastatin 40 mg tablet 40 mg PO QHS 11/16/24 History Allergy/AdvReac Type Severity Reaction Status Date / Time No Known Allergies Allergy Verified 11/16/24 14:07 Social History Smoking Status: Never smoker EXAM Physical Exam Const Vital Signs: 11/16/24 14:03 11/16/24 16:04 11/16/24 16:55 Temperature 97.5 F L 98.7 F Temperature Source Oral Pulse Rate 85 83 84 Respiratory Rate 14 19 H 25 H Blood Pressure 120/67 124/67 H 127/71 H Blood Pressure Mean 84 86 89 Pulse Ox 95 94 94 Oxygen Delivery Method Room Air Room Air MDM MDM MDM Narrative Medical decision making narrative: HISTORY OF PRESENT ILLNESS: 64-year-old female presents with concern for right mid upper back pain. She notes she had an abdominal surgery (colostomy) done 3 weeks ago in [place]. [place] last evening the pain started. She further states also last night she hadright-sided back pain is located in the mid upper back along the inferior scapula. Is worse with a deep breath. Also no shortness of breath. Denies cough fever chills Patient denies any saddle anesthesia, urinary retention, bowel or bladder incontinence, lower extremity weakness, fever or IV drug use, no recent spinal manipulation or surgery, no recent urinary catheterization. The patient denies immobilization in the last 3 days, denies previous diagnosis of DVT or PE, hemoptysis, unilateral leg swelling or malignancy with treatment the last 6 months or palliative. No estrogen use noted. Does not recent surgery. REVIEW OF SYSTEMS: Pertinent positives: Back pain, right posterior rib pain, pleuritic pain Pertinent negatives: Syncope PHYSICAL EXAM: Nursing triage notes reviewed, Vital signs reviewed Constitutional: please see mdm HENT: MMM Eyes: Pupils equal round and reactive to light, Extraocular muscles intact Neck: No stridor, no JVD, full neck ROM Lungs: Clear to auscultation, No wheezing or rales. No increased work of breathing, no conversational dyspnea, no accessory muscle use, no nasal flaring. No respiratory distress noted Heart: Regular rate and rhythm, No murmurs, No rubs and No gallops, 2+ distal pulses (radial, femoral, posterior tibial) in all extremities Abdomen: Soft, there is no tenderness, rigidity, rebound or guarding, no obviousperitoneal signs, no palpable pulsatile abdominal masses, no auscultated abdominal bruit : No CVAT Extremities: No edema Back: No rashes noted. No midline step-offs deformities to the CT or L-spine. There is some slight tenderness palpation the infrascapular region Neuro: intact sensation L1-S1 dermatomal distributions. Intact 5/5 strength inhip flexion (T12-L3). Knee extension (L2-L4). Ankle dorsiflexion (L4-L5). Ankle plantar flexion (S1). Great toe extension (L5). 2+ patellar and AchillesDTRs. Skin: No rash or lesions noted MEDICAL DECISION MAKING: Chief Complaint: Back pain External records reviewed: No prior imaging studies noted in [facility]'s EMR Factors affecting care: History of hypertension, hyperlipidemia, history of colostomy Social determinants of health: none History obtained from others: none Consults: Internal medicine (Dr. Parker) discussed admitting to PCU as a observation admission. MDM Narrative: The patient was initially hemodynamically stable, afebrile and nontoxic- appearing. Exam without focal cardiopulmonary abnormalities. No signs of focallower extremity neurologic deficits. No midline step-offs deformities. No signof trauma or rashes. I considered the following differential diagnosis: Musculoskeletal back pain, nephrolithiasis, pyelonephritis, postsurgical abnormality, PE There is no CVA tenderness to suggest nephrolithiasis or pyelonephritis Triage labs were placed including CBC, CMP and urinalysis I obtained a broad lab and imaging workup to further elucidate etiology of patient's complaints. Given recent surgery, pleuritic pain and shortness of breath I was most concerned about a pulmonary embolism. ALL IMAGES (IF OBTAINED) HAVE BEEN PERSONALLY REVIEWED AND INTERPRETED BY MYSELF. EKG with normal sinus rhythm rate of 90, normal axis, normal intervals, QTc 440,no sign of STEMI, no sign of WPW, ARVD or Brugada syndrome. No sign of right heart strain. CBC with no leukocytosis, mild anemia, no thrombocytopenia High-sensitivity troponin is negative, no evidence of myocardial ischemia BNP within normal suggestive no significant heart strain No coagulopathy noted on coagulation studies CMP without evidence of acute kidney injury, significant electrolyte abnormality, anion gap to suggest end organ hypo-perfusion, no evidence of metabolic acidosis with a normal bicarbonate, no evidence of hepatobiliary obstructive pathology. CT of the chest shows evidence of bilateral PEs, right heart strain The synthesis of the patient's history, physical exam, labs images suggest likely pulmonary emboli. Given his right heart strain will start on heparin andadmit for observation overnight. Discussed hospitalist who agreed. The patient and/or family, caregivers express understanding. The patient and/orfamily, caregivers agrees with the plan. Shared decision making: I will have a discussion with the patient and or visitors regarding risk/benefits of further testing or admission. They will be made aware of of the risk/benefits inherent in this decision they will be given the opportunity to voice understanding. Total critical care time today provided was at least 35 minutes. This excludes separately billable procedures. Critical care time (if documented) is secondary to the patient having high probability of clinically significant/life threatening deterioration in the patient's condition which required my urgent intervention. Impression: 1. Acute back pain 2. Acute pulmonary emboli Dispo: Admit to PCU This note was generated with Dragon dictation software. It may contain incorrectwords, spelling, and punctuation that were not noted in review of the chart prior to signing. Lab Data Labs: Laboratory Results - last 24 hr 11/16/24 11/16/24 14:14 16:11 WBC 9.0 RBC 3.82 L Hgb 11.8 L Hct 34.3 L MCV 89.8 MCH 30.9 MCHC 34.4 RDW Std Deviation 42.4 RDW Coeff of Sea 12.9 Plt Count 433 MPV 9.3 Immature Gran % (Auto) 0.400 Neut % (Auto) 70.9 H Lymph % (Auto) 19.5 Hoke % (Auto) 8.4 Eos % (Auto) 0.4 Baso % (Auto) 0.4 Absolute Neuts (auto) 6.4 Absolute Lymphs (auto) 1.75 Nucleated RBC % 0 PT 16.2 H INR 1.3 APTT 34.6 Sodium 139 Potassium 3.9 Chloride 103 Carbon Dioxide 21.2 Anion Gap 15 BUN 12 Creatinine 0.69 L Est GFR (MDRD) Non-Af 98 BUN/Creatinine Ratio 17.5 Glucose 94 Calcium 9.4 Total Bilirubin 0.44 AST 28 ALT 29 Alkaline Phosphatase 101 Troponin T High Sens < 6 NT pro BNP II < 36 Total Protein 7.8 Albumin 3.5 Globulin 4.3 H Albumin/Globulin Ratio 0.8 L Lipase 22 Radiography Diagnostic Testing: Clinical Impression(s) from Imaging Studies Chest CTA 11/16/24 14:52 IMPRESSION: 1. Lobar, segmental and subsegmental pulmonary emboli involving the lower lobes bilaterally, as well as a small segmental pulmonary embolus in the right middle lobe. 2. Right heart strain present with an increased RV/LV ratio. 3. Bibasilar consolidative airspace opacities, possibly due to pulmonary edema, pneumonia or pulmonary infarct. 4. Trace bilateral pleural effusions. Findings discussed with Dr. Ramirez at 1545 hours on 11/16/2024 [facility] Triage Chief Complaint: Back ED Provider: Uriel Ramirez Dx/Rx/DC Orders Prescriptions: No Action losartan 50 mg tablet 50 mg PO DAILY pravastatin 40 mg tablet 40 mg PO QHS amlodipine 5 mg tablet 5 mg PO DAILY Primary Care Provider: Corbin Vidal Referrals: Corbin Vidal DO [Primary Care Provider] - Print Language: Lithuanian What to do if you have Problems For any increased pain, shortness of breath, bleeding, nausea or vomiting, chestpain, or any unexpected problems, contact your Primary Care Provider. Call [facility] ([phone]) or report to the closest Emergency Room. Call 911 if necessary. 11/16/24 1729 <Electronically signed by Uriel Ramirez DO> Cosigner Signature (if applicable): CC: Dr. Corbin Vidal DO ~ Signed [facility] Work Phone: 1(780) [phone] History and physical note Author Melania Parker [facility] [facility] Note Date/Time November 16, 2024 5:0 8pm [facility] Medical Records Department [address] [place] [address] H&P Exam - Hospitalist 11/16/24 1658 MR#: [id number] Acct: [id number] Name: REINA MALLOY Rep #:[id number] : 1960 64 From: Melania Parker MD PCP: Dr. Corbin Vidal DO Status:REG ER Location: ED HPI - General General Date of Admission: 11/16/24 Date of Service: 11/16/24 Chief Complaint: Pleuritic pain, difficulty taking deep breaths HPI Narrative REINAPENNY MALLOY, is a 64-year-old female with history of hypertension hyperlipidemia and recent perforated diverticulum in [place] requiring colostomy 3 weeks ago presented [facility] ED 11/16/2024 due to back pain. She was vitally stable and labs unremarkable aside from a hemoglobin of 11.8 however upon further discussion with the ED provider patient did report pain was worse with inspiration and felt deeper than a superficial back pain. CTA was obtainedwhich showed multiple bilateral pulmonary emboli with concern for right heart strain and bibasilar consolidative opacities which were possibly due to pulmonary edema, pneumonia, or pulmonary infarct as well as trace bilateral pleural effusions. BNP and troponin within normal limits however given this concerns and the multiple emboli hospitalist contacted to admit under observation on blood thinners. Patient evaluated at bedside. She reports that she had been in her usual health until last night when she suddenly had a deep back pain with difficulty taking a deep breath, reports today it was not improving prompting her to come to the ED, denies any abdominal pain or problemswith her ostomy, reports a little bit of a dry cough/clearing of her throat if she gets a tickle but no productive cough, no fevers or chills. Patient denies any swelling in her legs or any other problems since she left [facility] Home Medications ?Medication ?Instructions ?Recorded ?Last Taken ?Type amlodipine 5 mg tablet 5 mg PO DAILY 11/16/2411/16 History losartan 50 mg tablet 50 mg PO DAILY 11/16/2410/22 History pravastatin 40 mg tablet 40 mg PO QHS 11/16/24 History Allergy/AdvReac Type Severity Reaction Status Date / Time No Known Allergies Allergy Verified 11/16/24 14:07 Social History Smoking Status: Never smoker ROS ROS Narrative General: Denies fever/chills HENT: Denies headache, denies stuffy nose, denies sore throat EYES: Denies changes in vision Resp: Slight dry cough, difficulty taking a deep breath Cardiac: Denies chest pain GI: Denies abdominal pain, denies problem with ostomy, denies nausea/vomiting : Denies changes in urination Extremity: Denies swelling in her legs MSK: Denies weakness Neuro: Denies any numbness/tingling Heme: Denies any bleeding or bruising Skin: Denies rashes Psychiatric: No complaints voiced Vital Signs Vital Signs Vital Signs: 11/16/24 14:03 11/16/24 16:04 11/16/24 16:55 Temperature 97.5 F L 98.7 F Temperature Source Oral Pulse Rate 85 83 84 Respiratory Rate 14 19 H 25 H Blood Pressure 120/67 124/67 H 127/71 H Blood Pressure Mean 84 86 89 Pulse Ox 95 94 94 Oxygen Delivery Method Room Air Room Air Weight Weight: 89.2 kg Body Mass Index (BMI) 33.7 Physical Exam Narrative General: Alert, oriented, HEENT: Atraumatic, normocephalic Eyes: Anicteric, normal conjunctiva, extraocular movements grossly intact Neck: Supple Respiratory: Patient is slightly tachypneic as she has pain with taking a deep breath, patient diminished at the bases, too difficult for her to take a deep breath to have adequate auscultation of bases but no overt crackles, wheezes, rhonchi in the upper lung arteaga Cardiovascular: Regular rate and rhythm GI: Soft, nontender, nondistended Extremities: No edema Musculoskeletal: Moving all extremities Neuro: No overt focal neurological deficits Skin: No rashes appreciated Psych: Cooperative Results Lab / Micro Data 11/16/24 14:14 11/16/24 14:14 Labs: Laboratory Results - last 24 hr 11/16/24 14:14: WBC 9.0, RBC 3.82 L, Hgb 11.8 L, Hct 34.3 L, MCV 89.8, MCH 30.9,MCHC 34.4, RDW Std Deviation 42.4, RDW Coeff of Sea 12.9, Plt Count 433, MPV 9.3, Immature Gran % (Auto) 0.400, Neut % (Auto) 70.9 H, Lymph % (Auto) 19.5, Hoke % (Auto) 8.4, Eos % (Auto) 0.4, Baso % (Auto) 0.4, Absolute Neuts (auto) 6.4, Absolute Lymphs (auto) 1.75, Nucleated RBC % 0, Sodium 139, Potassium 3.9, Chloride 103, Carbon Dioxide 21.2, Anion Gap 15, BUN 12, Creatinine 0.69 L, Est GFR (MDRD) Non-Af 98, BUN/Creatinine Ratio 17.5, Glucose 94, Calcium 9.4, Total Bilirubin 0.44, AST 28, ALT 29, Alkaline Phosphatase 101, Troponin T High Sens <6, NT pro BNP II < 36, Total Protein 7.8, Albumin 3.5, Globulin 4.3 H, Albumin/Globulin Ratio 0.8 L, Lipase 22 Imaging Radiology Impression Chest CTA 11/16/24 14:52 IMPRESSION: 1. Lobar, segmental and subsegmental pulmonary emboli involving the lower lobes bilaterally, as well as a small segmental pulmonary embolus in the right middle lobe. 2. Right heart strain present with an increased RV/LV ratio. 3. Bibasilar consolidative airspace opacities, possibly due to pulmonary edema, pneumonia or pulmonary infarct. 4. Trace bilateral pleural effusions. Findings discussed with Dr. Ramirez at 1545 hours on 11/16/2024 Reading Location: [facility] Assessment & Plan Assessment/Plan (1) Bilateral pulmonary embolism: (2) HTN (hypertension): (3) Hyperlipidemia: (4) Colostomy in place: PLAN: Plan # New bilateral pulmonary emboli - CTA was obtained which showed multiple bilateral pulmonary emboli with concernfor right heart strain and bibasilar consolidative opacities which were possiblydue to pulmonary edema, pneumonia, or pulmonary infarct as well as trace bilateral pleural effusions. -Patient placed on heparin drip in the ED, will continue -Troponin and BNP within normal limits, patient presently hemodynamically stablebut CT was concerned for possible right heart strain -Given patient's multiple clots with trace effusions and questionable pulmonary edema versus other etiology we will obtain echo -If patient remains stable may be able to DC tomorrow on oral anticoagulation. -May need to consider walking pulse ox prior to DC to verify patient does not desaturate on ambulation given CT findings -Incentive spirometer -Patient without fever, no productive cough, no elevated white blood cell countsdo not think patient has concomitant pneumonia, hold off on antibiotics unless any of these were to manifest and there was high suspicion # Recent abdominal surgery status post colostomy -Reportedly patient had a perforated diverticulum in [place] roughly 3 weeks agoand required colostomy #Hypertension -Given concern for right heart strain holding losartan and amlodipine, resume when able # Hyperlipidemia -Continue pravastatin #DVT ppx: SCDs Melania Parker MD Charges/Coding Visit Charges Inpatient E&M: 16685 Init Hosp L2 11/16/24 1708 <Electronically signed by Melania Parker MD> Cosigner Signature (if applicable): CC: Dr. Corbin Vidal DO; Dr. Melania Parker MD~ Signed [facility] Work Phone: 1(428) 211-211803-27-2025 Evaluation note* Diagnosis Onset Date Resolution Status Admit Date Bilateral pulmonary embolism acute November 16, 2024 5:01pm Colostomy in place acute November 16, 2024 5:01pm Hyperlipidemia acute October 5:01pm HTN (hypertension) chronic November 16, 2024 5:01pm [facility] Work Phone: 1([phone]) 237-520803-27-2025 Evaluation note* Diagnosis Onset Date Resolution Status Admit Date Bilateral pulmonary embolism acute November 16, 2024 5:01pm Colostomy in place inactive November 16, 2024 5:01pm HTN (hypertension) inactive November 16, 2024 5:01pm Hyperlipidemia inactive October 5:01pm [facility] Work Phone: [phone] Evaluation note* Diagnosis Onset Date Resolution Status Admit Date Bilateral pulmonary embolism chronic November 16, 2024 5:01pm Colostomy in place inactive November 16, 2024 5:01pm HTN (hypertension) inactive November 16, 2024 5:01pm Hyperlipidemia inactive October 5:01pm Bilateral pulmonary embolism chronic February 01, 2025 2:51pm [facility] [employer] Work Phone: 1(806) 444-284003-27-2025 Evaluation note* Diagnosis Onset Date Resolution Status Admit Date Bilateral pulmonary embolism chronic November 16, 2024 5:01pm Colostomy in place inactive November 16, 2024 5:01pm HTN (hypertension) inactive November 16, 2024 5:01pm Hyperlipidemia inactive October 5:01pm Bilateral pulmonary embolism chronic February 01, 2025 2:51pm Bilateral pulmonary embolism chronic February 15, 2025 12:37pm [employer] Work Phone: [phone] 504-295703-27-2025 Discharge summary [facility] Medical Records Department [address] [place] [id number] Emergency Department Summary 11/16/24 MR#: [id number] Acct: [id number] Name: REINA MALLOY Rep #:[id number] : 1960 64 From: Uriel Ortiz PCP: Dr. Corbin Vidal, DO Status:REG ER Location: ED HPI History of Present Illness Chief Complaint: Back PFSH PFSH Home Medications ?Medication ?Instructions ?Recorded ?Last Taken ?Type amlodipine 5 mg tablet 5 mg PO DAILY 11/16/2411/16 History losartan 50 mg tablet 50 mg PO DAILY 11/16/24/03/16 History pravastatin 40 mg tablet 40 mg PO QHS 11/16/24 History Allergy/AdvReac Type Severity Reaction Status Date / Time No Known Allergies Allergy Verified 11/16/24 14:07 Social History Smoking Status: Never smoker EXAM Physical Exam Const Vital Signs: 11/16/24 14:03 11/16/24 16:04 11/16/24 16:55 Temperature 97.5 F L 98.7 F Temperature Source Oral Pulse Rate 85 83 84 Respiratory Rate 14 19 H 25 H Blood Pressure 120/67 124/67 H 127/71 H Blood Pressure Mean 84 86 89 Pulse Ox 95 94 94 Oxygen Delivery Method Room Air Room Air [facility] Narrative Medical decision making narrative: HISTORY OF PRESENT ILLNESS: 64-year-old female presents with concern for right mid upper back pain. She notes she had an abdominal surgery (colostomy) done 3 weeks ago in [place]. [place] last evening the pain started. She further states also last night she hadright-sided back pain is located in the mid upper back along the inferior scapula. Is worse with a deep breath. Also no shortness of breath. Denies cough fever chills Patient denies any saddle anesthesia, urinary retention, bowel or bladder incontinence, lower extremity weakness, fever or IV drug use, no recent spinal manipulation or surgery, no recent urinary catheterization. The patient denies immobilization in the last 3 days, denies previous diagnosis of DVT or PE, hemoptysis, unilateral leg swelling or malignancy with treatment the last 6 months or palliative. No estrogen use noted. Does not recent surgery. REVIEW OF SYSTEMS: Pertinent positives: Back pain, right posterior rib pain, pleuritic pain Pertinent negatives: Syncope PHYSICAL EXAM: Nursing triage notes reviewed, Vital signs reviewed Constitutional: please see [facility] HENT: MMM Eyes: Pupils equal round and reactive to light, Extraocular muscles intact Neck: No stridor, no JVD, full neck ROM Lungs: Clear to auscultation, No wheezing or rales. No increased work of breathing, no conversational dyspnea, no accessory muscle use, no nasal flaring. No respiratory distress noted Heart: Regular rate and rhythm, No murmurs, No rubs and No gallops, 2+ distal pulses (radial, femoral, posterior tibial) in all extremities Abdomen: Soft, there is no tenderness, rigidity, rebound or guarding, no obviousperitoneal signs, no palpable pulsatile abdominal masses, no auscultated abdominal bruit : No CVAT Extremities: No edema Back: No rashes noted. No midline step-offs deformities to the CT or L-spine. There is some slight tenderness palpation the infrascapular region Neuro: intact sensation L1-S1 dermatomal distributions. Intact 5/5 strength inhip flexion (T12-L3).Knee extension (L2-L4). Ankle dorsiflexion (L4-L5). Ankle plantar flexion (S1). Great toe extension(L5). 2+ patellar and AchillesDTRs. Skin: No rash or lesions noted MEDICAL DECISION MAKING: Chief Complaint: Back pain External records reviewed: No prior imaging studies noted in [facility]'s EMR Factors affecting care: History of hypertension, hyperlipidemia, history of colostomy Social determinants of health: none History obtained from others: none Consults: Internal medicine (Dr. Parker) discussed admitting to PCU as a observation admission. MDM Narrative: The patient was initially hemodynamically stable, afebrile and nontoxic- appearing. Exam without focal cardiopulmonary abnormalities. No signs of focallower extremity neurologic deficits. No midline step-offs deformities. No signof trauma or rashes. I considered the following differential diagnosis: Musculoskeletal back pain, nephrolithiasis, pyelonephritis, postsurgical abnormality, PE There is no CVA tenderness to suggest nephrolithiasis or pyelonephritis Triage labs were placed including CBC, CMP and urinalysis I obtained a broad lab and imaging workup to further elucidate etiology of patient's complaints. Given recent surgery, pleuritic pain and shortness of breath I was most concerned about a pulmonary embolism. ALL IMAGES (IF OBTAINED) HAVE BEEN PERSONALLY REVIEWED AND INTERPRETED BY MYSELF. EKG with normal sinus rhythm rate of 90, normal axis, normal intervals, QTc 440,no sign of STEMI, no sign of WPW, ARVD or Brugada syndrome. No sign of right heart strain. CBC with no leukocytosis, mild anemia, no thrombocytopenia High-sensitivity troponin is negative, no evidence of myocardial ischemia BNP within normal suggestive no significant heart strain No coagulopathy noted on coagulation studies CMP without evidence of acute kidney injury, significant electrolyte abnormality, anion gap to suggest end organ hypo-perfusion, no evidence of metabolic acidosis with a normal bicarbonate, no evidence of hepatobiliary obstructive pathology. CT of the chest shows evidence of bilateral PEs, right heart strain The synthesis of the patient's history, physical exam, labs images suggest likely pulmonary emboli.Given his right heart strain will start on heparin andadmit for observation overnight. Discussed hospitalist who agreed. The patient and/or family, caregivers express understanding. The patient and/orfamily, caregivers agrees with the plan. Shared decision making: I will have a discussion with the patient and or visitors regarding risk/benefits of further testing or admission. They will be made aware of of the risk/benefits inherent in this decision they will be given the opportunity to voice understanding. Total critical care time today provided was at least 35 minutes. This excludes separately billable procedures. Critical care time (if documented) is secondary to the patient having high probability of clinically significant/life threatening deterioration in the patient's condition which required myurgent intervention. Impression: 1. Acute back pain 2. Acute pulmonary emboli Dispo: Admit to PCU This note was generated with [employer] dictation software. It may contain incorrectwords, spelling, and punctuation that were not noted in review of the chart prior to signing. Lab Data Labs: Laboratory Results - last 24 hr 11/16/24 11/16/24 14:14 16:11 WBC 9.0 RBC 3.82 L Hgb 11.8 L Hct 34.3 L MCV 89.8 MCH 30.9 MCHC 34.4 RDW Std Deviation 42.4 RDW Coeff of Sea 12.9 Plt Count 433 MPV 9.3 Immature Gran % (Auto) 0.400 Neut % (Auto) 70.9 H Lymph % (Auto) 19.5 Hoke % (Auto) 8.4 Eos % (Auto) 0.4 Baso % (Auto) 0.4 Absolute Neuts (auto) 6.4 Absolute Lymphs (auto) 1.75 Nucleated RBC % 0 PT 16.2 H INR 1.3 APTT 34.6 Sodium 139 Potassium 3.9 Chloride 103 Carbon Dioxide 21.2 Anion Gap 15 BUN 12 Creatinine 0.69 L Est GFR (MDRD) Non-Af 98 BUN/Creatinine Ratio 17.5 Glucose 94 Calcium 9.4 Total Bilirubin 0.44 AST 28 ALT 29 Alkaline Phosphatase 101 Troponin T High Sens < 6 NT pro BNP II < 36 Total Protein 7.8 Albumin 3.5 Globulin 4.3 H Albumin/Globulin Ratio 0.8 L Lipase 22 Radiography Diagnostic Testing: Clinical Impression(s) from Imaging Studies Chest CTA 11/16/24 14:52 IMPRESSION: 1. Lobar, segmental and subsegmental pulmonary emboli involving the lower lobes bilaterally, as well as a small segmental pulmonary embolus in the right middle lobe. 2. Right heart strain present with an increased RV/LV ratio. 3. Bibasilar consolidative airspace opacities, possibly due to pulmonary edema, pneumonia or pulmonary infarct. 4. Trace bilateral pleural effusions. Findings discussed with Dr. Ramirez at 1545 hours on 11/16/2024 Reading Location: [facility] Discharge Plan Triage Chief Complaint: Back ED Provider: Uriel Ramirez Dx/Rx/DC Orders Prescriptions: No Action losartan 50 mg tablet 50 mg PO DAILY pravastatin 40 mg tablet 40 mg PO QHS amlodipine 5 mg tablet 5 mg PO DAILY Primary Care Provider: Corbin Vidal Referrals: Corbin Vidal DO [Primary Care Provider] - Print Language: Lithuanian What to do if you have Problems For any increased pain, shortness of breath, bleeding, nausea or vomiting, chestpain, or any unexpected problems, contact your Primary Care Provider. Call [facility] ([phone]) or report tothe closest Emergency Room. Call 911 if necessary. 11/16/24 1729 Cosigner Signature (if applicable): CC: Dr. Corbin Vidal DO ~ Signed [facility]03-27-2025 History and physical note [facility] Medical Records Department [address] [place] [address] H&P Exam - Hospitalist 11/16/24 1658 MR#: [id number] Acct: [id number] Name: REINA MALLOY Rep #:[id number] : 1960 64 From: Melania Parker MD PCP: Dr. Corbin Vidal DO Status:REG ER Location: ED HPI - General General Date of Admission: 11/16/24 Date of Service: 11/16/24 Chief Complaint: Pleuritic pain, difficulty taking deep breaths HPI Narrative REINA MELLISSA, is a 64-year-old female with history of hypertension hyperlipidemia and recent perforated diverticulum in [place] requiring colostomy 3 weeks ago presented [facility] ED 11/16/2024 due to back pain. She was vitally stable and labs unremarkable aside from a hemoglobin of 11.8 however upon further discussion with the ED provider patient did report pain was worse with inspiration and felt deeper than a superficial back pain. CTA was obtainedwhich showed multiple bilateralpulmonary emboli with concern for right heart strain and bibasilar consolidative opacities which were possibly due to pulmonary edema, pneumonia, or pulmonary infarct as well as trace bilateral pleural effusions. BNP and troponin within normal limits however given this concerns and the multiple emboli hospitalist contacted to admit under observation on blood thinners. Patient evaluated at bedside. She reports that she had been in her usual health until last night when she suddenly had a deep back pain with difficulty taking a deep breath, reports today it was not improving prompting her to come to the ED, denies any abdominal pain or problemswith her ostomy, reports a little bit of a dry cough/clearing of her throat if she gets a tickle but no productive cough, no fevers or chills. Patient denies any swelling in her legs or any other problems since she left [facility] Home Medications ?Medication ?Instructions ?Recorded ?Last Taken ?Type amlodipine 5 mg tablet 5 mg PO DAILY 11/16/2411/16 History losartan 50 mg tablet 50 mg PO DAILY 11/16/2410/22 History pravastatin 40 mg tablet 40 mg PO QHS 11/16/24 History Allergy/AdvReac Type Severity Reaction Status Date / Time No Known Allergies Allergy Verified 11/16/24 14:07 Social History Smoking Status: Never smoker ROS ROS Narrative General: Denies fever/chills HENT: Denies headache, denies stuffy nose, denies sore throat EYES: Denies changes in vision Resp: Slight dry cough, difficulty taking a deep breath Cardiac: Denies chest pain GI: Denies abdominal pain, denies problem with ostomy, denies nausea/vomiting : Denies changes in urination Extremity: Denies swelling in her legs MSK: Denies weakness Neuro: Denies any numbness/tingling Heme: Denies any bleeding or bruising Skin: Denies rashes Psychiatric: No complaints voiced Vital Signs Vital Signs Vital Signs: 11/16/24 14:03 11/16/24 16:04 11/16/24 16:55 Temperature 97.5 F L 98.7 F Temperature Source Oral Pulse Rate 85 83 84 Respiratory Rate 14 19 H 25 H Blood Pressure 120/67 124/67 H 127/71 H Blood Pressure Mean 84 86 89 Pulse Ox 95 94 94 Oxygen Delivery Method Room Air Room Air Weight Weight: 89.2 kg Body Mass Index (BMI) 33.7 Physical Exam Narrative General: Alert, oriented, HEENT: Atraumatic, normocephalic Eyes: Anicteric, normal conjunctiva, extraocular movements grossly intact Neck: Supple Respiratory: Patient is slightly tachypneic as she has pain with taking a deep breath, patient diminished at the bases, too difficult for her to take a deep breath to have adequate auscultation of bases but no overt crackles, wheezes, rhonchi in the upper lung arteaga Cardiovascular: Regular rate and rhythm GI: Soft, nontender, nondistended Extremities: No edema Musculoskeletal: Moving all extremities Neuro: No overt focal neurological deficits Skin: No rashes appreciated Psych: Cooperative Results Lab / Micro Data 11/16/24 14:14 11/16/24 14:14 Labs: Laboratory Results - last 24 hr 11/16/24 14:14: WBC 9.0, RBC 3.82 L, Hgb 11.8 L, Hct 34.3 L, MCV 89.8, MCH 30.9,MCHC 34.4, RDW Std Deviation 42.4, RDW Coeff of Sea 12.9, Plt Count 433, MPV 9.3, Immature Gran % (Auto) 0.400, Neut % (Auto) 70.9 H, Lymph % (Auto) 19.5, Hoke % (Auto) 8.4, Eos % (Auto) 0.4, Baso % (Auto) 0.4, AbsoluteNeuts (auto) 6.4, Absolute Lymphs (auto) 1.75, Nucleated RBC % 0, Sodium 139, Potassium 3.9, Chloride 103, Carbon Dioxide 21.2, Anion Gap 15, BUN 12, Creatinine 0.69 L, Est GFR (MDRD) Non-Af 98, BUN/Creatinine Ratio 17.5, Glucose 94, Calcium 9.4, Total Bilirubin 0.44, AST 28, ALT 29, Alkaline Phosphatase 101, Troponin T High Sens <6, NT pro BNP II < 36, Total Protein 7.8, Albumin 3.5, Globulin 4.3 H, Albumin/Globulin Ratio 0.8 L, Lipase 22 Imaging Radiology Impression Chest CTA 11/16/24 14:52 IMPRESSION: 1. Lobar, segmental and subsegmental pulmonary emboli involving the lower lobes bilaterally, as well as a small segmental pulmonary embolus in the right middle lobe. 2. Right heart strain present with an increased RV/LV ratio. 3. Bibasilar consolidative airspace opacities, possibly due to pulmonary edema, pneumonia or pulmonary infarct. 4. Trace bilateral pleural effusions. Findings discussed with Dr. Ramirez at 1545 hours on 11/16/2024 Reading [facility] Assessment & Plan Assessment/Plan (1) Bilateral pulmonary embolism: (2) HTN (hypertension): (3) Hyperlipidemia: (4) Colostomy in place: PLAN: Plan # New bilateral pulmonary emboli - CTA was obtained which showed multiple bilateral pulmonary emboli with concernfor right heart strain and bibasilar consolidative opacities which were possiblydue to pulmonary edema, pneumonia, or pulmonary infarct as well as trace bilateral pleural effusions. -Patient placed on heparin drip in the ED, will continue -Troponin and BNP within normal limits, patient presently hemodynamically stablebut CT was concerned for possible right heart strain -Given patient's multiple clots with trace effusions and questionable pulmonary edema versus other etiology we will obtain echo -If patient remains stable may be able to DC tomorrow on oral anticoagulation. -May need to consider walking pulse ox prior to DC to verify patient does not desaturate on ambulation given CT findings -Incentive spirometer -Patient without fever, no productive cough, no elevated white blood cell countsdo not think patient has concomitant pneumonia, hold off on antibiotics unless any of these were to manifest and there was high suspicion # Recent abdominal surgery status post colostomy -Reportedly patient had a perforated diverticulum in [place] roughly 3 weeks agoand required colostomy #Hypertension -Given concern for right heart strain holding losartan and amlodipine, resume when able # Hyperlipidemia -Continue pravastatin #DVT ppx: SCDs Melania Parker MD Charges/Coding Visit Charges Inpatient E&M: 17943 Init Hosp L2 11/16/24 1708 Cosigner Signature (if applicable): CC: Dr. Corbin Vidal, DO; Dr. Melania Parker MD~ Signed [facility]03-27-2025 Radiology Diagnostic study note [facility] Imaging Services [address] [place], [place] [id number] CTA Chest W/WO Contrast MR#: [id number] Acct: [id number] Name: REINA MALLOY Rep #: [id number] : 1960 F 64 From: Felicia Plasencia MD PCP: Dr. Corbin Vidal DO Status: REG ER Study:CTA Chest W/WO Contrast Date of Exam: 11/16/24 Exam# [id number] Ordering Dr: Sadi Ramirez DO PROCEDURE: CTA CHEST W/WO CONTRAST 11/16/2024 REASON FOR EXAM: RIGHT SIDED PLEURITIC PAIN RECENT SURGERY R/O PE TECHNIQUE: CTA axial imaging of the chest with intravenous contrast. Coronal and Sagittal reconstruction series were provided. 3D, 3D post processing, 3D reconstructions, Maximum intensity projection (MIPs) Volume rendering and Shaded surface rendering was provided. One or more dose reduction techniques were used (e.g., Automated exposure control, adjustment of the mA and/or kV according to patient size, use of iterative reconstruction technique). COMPARISON: None. FINDINGS: Lungs/pleura: There are large consolidative airspace opacities in the lung basesbilaterally.Trace bilateral pleural effusions are present. Pulmonary arteries: Lobar, segmental and subsegmental PE are present in bilateral lower lobes. There is a segmental pulmonary embolus in the right middle lobe. Cardiovascular: The heart is normal in size.The RV/LV ratio is increased measuring 1.16.The aorta is unremarkable. Pericardium: No effusion. Mediastinum: Unremarkable. Lymph nodes: No lymph node enlargement by CT size criteria. Bones: No acute osseous abnormality. Soft tissues: Unremarkable. Upper abdomen: Hepatic steatosis is present. CT/CTA Chest W/WO Contrast IMPRESSION: 1. Lobar, segmental and subsegmental pulmonary emboli involving the lower lobes bilaterally, as well as a small segmental pulmonary embolus in the right middle lobe. 2. Right heart strain present with an increased RV/LV ratio. 3. Bibasilar consolidative airspace opacities, possibly due to pulmonary edema, pneumonia or pulmonary infarct. 4. Trace bilateral pleural effusions. Findings discussed with Dr. Ramirez at 1545 hours on 11/16/2024 Reading [facility] CC: Dr. Corbin Vidal DO; Dr. 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: [facility] Diagnosis Onset Date Resolution Status Admit Date Bilateral pulmonary embolism acute November 16, 2024 5:01pm Colostomy in place acute November 16, 2024 5:01pm Hyperlipidemia acute October 5:01pm HTN (hypertension) chronic November 16, 2024 5:01pm [facility] Work Phone: Evaluation note* Diagnosis Diverticulitis- Primary Diverticulitis of colon (without mention of hemorrhage) Attention to colostomy (HCC) Attention to colostomy documented in this encounter [facility] note* Diagnosis Attention to colostomy (HCC)- Primary Attention to colostomy Obesity, Class I, BMI 30-34.9 Obesity, unspecified Attention to colostomy (HCC) Attention to colostomy documented in this encounter [facility] note* Diagnosis Diverticulitis- Primary Diverticulitis of colon (without mention of hemorrhage) documented in this encounter [facility] note* Diagnosis Colon cancer screening- Primary Special screening for malignant neoplasms, colon documented in this encounter [facility] note* Diagnosis Preop examination- Primary Preoperative examination, unspecified Colon cancer screening Special screening for malignant neoplasms, colon Obesity, Class I, BMI 30-34.9 Obesity, unspecified Hypertension, unspecified type Hyperlipidemia, unspecified hyperlipidemia type History of DVT (deep vein thrombosis) Personal history of venous thrombosis and embolism * Assessment & Plan Note - Deyanira Huber APRN.CNP - 04/16/2025 8:58 AM EDT Associated Problem(s): HLD (hyperlipidemia) Statin, continue as prescribed * Assessment & Plan Note - Deyanira Huber APRN.CNP - 04/16/2025 8:58 AM EDT Associated Problem(s): HTN (hypertension) Controlled with amlodipine and losartan * Assessment & Plan Note - Deyanira Huber APRN.CNP - 04/16/2025 8:57 AM EDT Associated Problem(s): Obesity, Class I, BMI 30-34.9 BMI 34.3 * Assessment & Plan Note - Deyanira Huber APRN.CNP - 04/16/2025 8:57 AM EDT Associated Problem(s): Preop examination Patient has the following medical conditions which may affect adria-operative course addressed in assessment and plan today. [facility] Author Melania Parker [facility] Note Date/Time November 16, 2024 5:0 8pm [facility] Medical Records Department [address] [place] [address] H&P Exam - Hospitalist 11/16/24 1658 MR#: [id number] Acct: [id number] Name: REINA MALLOY Rep #:[id number] : 1960 64 From: Melania Parker MD PCP: Dr. Corbin Vidal, DO Status:REG ER Location: ED HPI - General General Date of Admission: 11/16/24 Date of Service: 11/16/24 Chief Complaint: Pleuritic pain, difficulty taking deep breaths HPI Narrative REINA MELLISSA, is a 64-year-old female with history of hypertension hyperlipidemia and recent perforated diverticulum in [place] requiring colostomy 3 weeks ago presented [facility] ED 11/16/2024 due to back pain. She was vitally stable and labs unremarkable aside from a hemoglobin of 11.8 however upon further discussion with the ED provider patient did report pain was worse with inspiration and felt deeper than a superficial back pain. CTA was obtainedwhich showed multiple bilateral pulmonary emboli with concern for right heart strain and bibasilar consolidative opacities which were possibly due to pulmonary edema, pneumonia, or pulmonary infarct as well as trace bilateral pleural effusions. BNP and troponin within normal limits however given this concerns and the multiple emboli hospitalist contacted to admit under observation on blood thinners. Patient evaluated at bedside. She reports that she had been in her usual health until last night when she suddenly had a deep back pain with difficulty taking a deep breath, reports today it was not improving prompting her to come to the ED, denies any abdominal pain or problemswith her ostomy, reports a little bit of a dry cough/clearing of her throat if she gets a tickle but no productive cough, no fevers or chills. Patient denies any swelling in her legs or any other problems since she left [facility] Home Medications ?Medication ?Instructions ?Recorded ?Last Taken ?Type amlodipine 5 mg tablet 5 mg PO DAILY 11/16/2411/16 History losartan 50 mg tablet 50 mg PO DAILY 11/16/2410/22 History pravastatin 40 mg tablet 40 mg PO QHS 11/16/24 History Allergy/AdvReac Type Severity Reaction Status Date / Time No Known Allergies Allergy Verified 11/16/24 14:07 Social History Smoking Status: Never smoker ROS ROS Narrative General: Denies fever/chills HENT: Denies headache, denies stuffy nose, denies sore throat EYES: Denies changes in vision Resp: Slight dry cough, difficulty taking a deep breath Cardiac: Denies chest pain GI: Denies abdominal pain, denies problem with ostomy, denies nausea/vomiting : Denies changes in urination Extremity: Denies swelling in her legs MSK: Denies weakness Neuro: Denies any numbness/tingling Heme: Denies any bleeding or bruising Skin: Denies rashes Psychiatric: No complaints voiced Vital Signs Vital Signs Vital Signs: 11/16/24 14:03 11/16/24 16:04 11/16/24 16:55 Temperature 97.5 F L 98.7 F Temperature Source Oral Pulse Rate 85 83 84 Respiratory Rate 14 19 H 25 H Blood Pressure 120/67 124/67 H 127/71 H Blood Pressure Mean 84 86 89 Pulse Ox 95 94 94 Oxygen Delivery Method Room Air Room Air Weight Weight: 89.2 kg Body Mass Index (BMI) 33.7 Physical Exam Narrative General: Alert, oriented, HEENT: Atraumatic, normocephalic Eyes: Anicteric, normal conjunctiva, extraocular movements grossly intact Neck: Supple Respiratory: Patient is slightly tachypneic as she has pain with taking a deep breath, patient diminished at the bases, too difficult for her to take a deep breath to have adequate auscultation of bases but no overt crackles, wheezes, rhonchi in the upper lung arteaga Cardiovascular: Regular rate and rhythm GI: Soft, nontender, nondistended Extremities: No edema Musculoskeletal: Moving all extremities Neuro: No overt focal neurological deficits Skin: No rashes appreciated Psych: Cooperative Results Lab / Micro Data 11/16/24 14:14 11/16/24 14:14 Labs: Laboratory Results - last 24 hr 11/16/24 14:14: WBC 9.0, RBC 3.82 L, Hgb 11.8 L, Hct 34.3 L, MCV 89.8, MCH 30.9,MCHC 34.4, RDW Std Deviation 42.4, RDW Coeff of Sea 12.9, Plt Count 433, MPV 9.3, Immature Gran % (Auto) 0.400, Neut % (Auto) 70.9 H, Lymph % (Auto) 19.5, Hoke % (Auto) 8.4, Eos % (Auto) 0.4, Baso % (Auto) 0.4, Absolute Neuts (auto) 6.4, Absolute Lymphs (auto) 1.75, Nucleated RBC % 0, Sodium 139, Potassium 3.9, Chloride 103, Carbon Dioxide 21.2, Anion Gap 15, BUN 12, Creatinine 0.69 L, Est GFR (MDRD) Non-Af 98, BUN/Creatinine Ratio 17.5, Glucose 94, Calcium 9.4, Total Bilirubin 0.44, AST 28, ALT 29, Alkaline Phosphatase 101, Troponin T High Sens <6, NT pro BNP II < 36, Total Protein 7.8, Albumin 3.5, Globulin 4.3 H, Albumin/Globulin Ratio 0.8 L, Lipase 22 Imaging Radiology Impression Chest CTA 11/16/24 14:52 IMPRESSION: 1. Lobar, segmental and subsegmental pulmonary emboli involving the lower lobes bilaterally, as well as a small segmental pulmonary embolus in the right middle lobe. 2. Right heart strain present with an increased RV/LV ratio. 3. Bibasilar consolidative airspace opacities, possibly due to pulmonary edema, pneumonia or pulmonary infarct. 4. Trace bilateral pleural effusions. Findings discussed with Dr. Ramirez at 1545 hours on 11/16/2024 Reading [facility] Assessment & Plan Assessment/Plan (1) Bilateral pulmonary embolism: (2) HTN (hypertension): (3) Hyperlipidemia: (4) Colostomy in place: PLAN: Plan # New bilateral pulmonary emboli - CTA was obtained which showed multiple bilateral pulmonary emboli with concernfor right heart strain and bibasilar consolidative opacities which were possiblydue to pulmonary edema, pneumonia, or pulmonary infarct as well as trace bilateral pleural effusions. -Patient placed on heparin drip in the ED, will continue -Troponin and BNP within normal limits, patient presently hemodynamically stablebut CT was concerned for possible right heart strain -Given patient's multiple clots with trace effusions and questionable pulmonary edema versus other etiology we will obtain echo -If patient remains stable may be able to DC tomorrow on oral anticoagulation. -May need to consider walking pulse ox prior to DC to verify patient does not desaturate on ambulation given CT findings -Incentive spirometer -Patient without fever, no productive cough, no elevated white blood cell countsdo not think patient has concomitant pneumonia, hold off on antibiotics unless any of these were to manifest and there was high suspicion # Recent abdominal surgery status post colostomy -Reportedly patient had a perforated diverticulum in [place] roughly 3 weeks agoand required colostomy #Hypertension -Given concern for right heart strain holding losartan and amlodipine, resume when able # Hyperlipidemia -Continue pravastatin #DVT ppx: SCDs Melania Parker MD Charges/Coding Visit Charges Inpatient E&M: 20638 Init Hosp L2 11/16/24 1708 <Electronically signed by Melania Parker MD> Cosigner Signature (if applicable): CC: Dr. Corbin Vidal, DO; Dr. Melania Parker MD~ Signed [facility] Work Phone: Reason for referral (narrative)No reason for referral information availableWCleveland Clinic Work Phone: Reason for visit Narrative* Outpatient Procedure (Routine) - Closed Specialty Diagnoses / Procedures Referred By Contac t Referred To Contact [facility] Diagnoses Colon cancer screening Procedures COLONOSCOPY SCREENING COLONOSCOPY FLX DX W/COLLJ SPEC WHEN PFRMD Anastacio Cisneros MD [address] [place] [address] Phone: tel: fax: [facility] [address] [place] [address] Referral ID Status Reason Start Date Expiration Date V isits Requested Visits Authorized [id number] Closed Auto-Generated Referral Financial Clearance Not Required 02/02/2025 02/02/2026 1 1 [facility] Chief Complaint and Reason for Visit Chief Complaint Admit Date BACK November 16, 2024 4:5 8pm NEW BILATERAL PE November 16, 2024 5:0 1pm Reason for Visit Admit Date Bilateral pulmonary embolism November 16, 2024 5:01pm Colostomy in place November 16, 2024 5:0 1pm Hyperlipidemia November 16, 2024 5:0 1pm HTN (hypertension) November 16, 2024 5:0 1pm Chief Complaint Admit Date BACK November 16, 2024 4:5 8pm ACUTE PE November 16, 2024 5:0 1pm Chief Complaint Admit Date BACK November 16, 2024 4:5 8pm NEW BILATERAL PE November 16, 2024 5:0 1pm NEW BILATERAL PE November 17, 2024 1:0 8pm OTHER PAIN December 29, 2024 9:23am Reason for Visit Admit Date Bilateral pulmonary embolism November 16, 2024 5:01pm Colostomy in place November 16, 2024 5:0 1pm HTN (hypertension) November 16, 2024 5:0 1pm Hyperlipidemia November 16, 2024 5:0 1pm Chief Complaint Admit Date BACK November 16, 2024 4:5 8pm NEW BILATERAL PE November 16, 2024 5:0 1pm NEW BILATERAL PE November 17, 2024 1:0 8pm OTHER PAIN December 29, 2024 9:23am OTHER PAIN December 29, 2024 4:53pm PE February 01, 2025 2:51 pm MED ONC February 01, 2025 3:32 pm Reason for Visit Admit Date Bilateral pulmonary embolism November 16, 2024 5:01pm Colostomy in place November 16, 2024 5:0 1pm HTN (hypertension) November 16, 2024 5:0 1pm Hyperlipidemia November 16, 2024 5:0 1pm Bilateral pulmonary embolism February 01, 2025 2:51pm Chief Complaint Admit Date BACK November 16, 2024 4:5 8pm NEW BILATERAL PE November 16, 2024 5:0 1pm NEW BILATERAL PE November 17, 2024 1:0 8pm OTHER PAIN December 29, 2024 9:23am OTHER PAIN December 29, 2024 4:53pm PE February 01, 2025 2:51 pm MED ONC February 01, 2025 3:32 pm 2 WEEKS LABS PRIOR February 15, 2025 12:3 7pm Reason for Visit Admit Date Bilateral pulmonary embolism November 16, 2024 5:01pm Colostomy in place November 16, 2024 5:0 1pm HTN (hypertension) November 16, 2024 5:0 1pm Hyperlipidemia November 16, 2024 5:0 1pm Bilateral pulmonary embolism February 01, 2025 2:51pm Bilateral pulmonary embolism February 15, 2025 12:37pm Advance Directives Advance Directive Response Recorded Date/ Time Living Will No November 16, 2024 2:19pm Do you have a Healthcare Power of Director Financial Planning? No November 16, 2024 2:19pm Advance Directives Yes August 25, 2016 12:19am Advance Directive Response Recorded Date/ Time Living Will No November 16, 2024 5:59pm Do you have a Healthcare Power of Director Financial Planning? No November 16, 2024 5:59pm Advance Directives Yes August 25, 2016 12:19am Advance Directive Response Recorded Date/ Time Living Will No November 16, 2024 5:59pm Do you have a Healthcare Power of Director Financial Planning? No November 16, 2024 5:59pm Do you have a Healthcare Power of Director Financial Planning? No December 29, 2024 9:46am Advance Directives Yes August 25, 2016 12:19am Summary Purpose Family History No Family History Records FoundNo Family History Records Found Additional Source Comments Care Teams (unrecognized sec tion and content) Team Status: Active Member Role Status Dates Dr. Corbin Vidal , DO Primary Care Provider Active Team Status: Active Member Role Status Dates Dr. Corbin Vidal , DO Primary Care Provider Active Start: November 16, 2024 Dr. Uriel Ramirez , DO Emergency Provider Active Start: November 16, 2024 Dr. Melania Parker MD Attending Provider Active Start: November 16, 2024 Team Status: Active Member Role Status Dates Dr. Corbin Vidal DO Primary Care Provider Active Start: November 16, 2024 Dr. Uriel Ramirez DO Emergency Provider Active Start: November 16, 2024 Dr. Melania Parker MD Admit Provider Active Star t: November 16, 2024 Dr. Melania Parker MD Attending Provider Active Start: November 16, 2024 Team Status: Inactive Member Role Status Dates Dr. Corbin Vidal DO Primary Care Provider Active Start: November 16, 2024 End: November 17, 2024 Dr. Uriel Ramirez DO Emergency Provider Active Start: November 16, 2024 End: November 17, 2024 Dr. Melania Parker MD Admit Provider Active Star t: November 16, 2024 End: November 17, 2024 Dr. Melania Parker MD Other Provider Active Star t: November 16, 2024 End: November 17, 2024 Dr. Faizan Mckenzie MD Attending Provider Active Start: November 16, 2024 End: November 17, 2024 Team Status: Active Member Role Status Dates Dr. Corbin Vidal DO Primary Care Provider Active Start: November 17, 2024 Dr. Luzma Morel MD Attending Provider Active Start: November 17, 2024 Team Status: Active Member Role Status Dates Dr. Corbin Vidal DO Primary Care Provider Active Start: November 17, 2024 Dr. Uriel Ramirez DO Emergency Provider Active Start: November 17, 2024 Dr. Melania Parker MD Admit Provider Active Star t: November 17, 2024 Dr. Melania Parker MD Other Provider Active Star t: November 17, 2024 Dr. Faizan Mckenzie MD Attending Provider Active Start: November 17, 2024 Dr. Faizan Mckenzie MD Other Provider Active Start: November 17, 2024 Team Status: Inactive Member Role Status Dates Dr. Corbin Vidal DO Primary Care Provider Active Start: December 29, 2024 End: December 29, 2024 Dr. Taylor Sanz DO Emergency Provider Active Start: December 29, 2024 End: December 29, 2024 Director [place] Relationship Specialty Start Date End Date Midwifery, [place] [address] [place] [id number] PCP - General 01/03/25 Anastacio Cisneros MD [address] [place], [place] [id number] General Surgery 01/03/25 Director [place] Relationship Specialty Start Date End Date Midwifery, [address] [address] PCP - General 01/03/25 Anastacio Cisneros MD [address] [place], [place] [id number] General Surgery 01/03/25 Director [place] Relationship Specialty Start Date End Date Midwifery, [address] [phone] PCP - General 01/03/25 Anastacio Cisneros MD [address] [place], [place] [id number] General Surgery 01/03/25 Director [place] Relationship Specialty Start Date End Date Harrison Moseley MD [address] [place] [address] PCP - General Gastroenterology 01/11/25 Anastacio Cisneros MD [address] [place], [place] [id number] General Surgery 01/03/25 Team Status: Inactive Member Role Status Dates Dr. Corbin Vidal DO Primary Care Provider Active Start: December 29, 2024 End: December 29, 2024 Dr. Taylor Sanz DO Attending Provider Active Start: December 29, 2024 End: December 29, 2024 Dr. Taylor Sanz , Emergency Provider Active Start: December 29, 2024 End: December 29, 2024 Team Status: Active Member Role Status Dates Dr. Corbin Vidal DO Primary Care Provider Active Start: December 29, 2024 Dr. Taylor Sanz DO Referring Provider Active Start: December 29, 2024 Dr. Taylor Sanz DO Emergency Provider Active Start: December 29, 2024 Dr. Stu Woo MD Attending Provider Active Start: December 29, 2024 Team Status: Inactive Member Role Status Dates Dr. Corbin Vidal DO Primary Care Provider Active Start: February 01, 2025 End: February 01, 2025 Dr. Jamie Castañeda MD Attending Provider Active S tart: February 01, 2025 End: February 01, 2025 Dr. Faizan Mckenzie MD Referring Provider Active Start: February 01, 2025 End: February 01, 2025 Team Status: Active Member Role Status Dates Dr. Corbin Vidal DO Primary Care Provider Active Start: February 01, 2025 Dr. Jamie Castañeda MD Attending Provider Active S tart: February 01, 2025 Dr. Jamie Castañeda MD Referring Provider Active S tart: February 01, 2025 Director [place] Relationship Specialty Start Date End Date Harrison Moseley MD [address] [place] [address] PCP - General Gastroenterology 01/11/25 Anastacio Cisneros MD [address] [place] [address] General Surgery 01/03/25 Team Status: Inactive Member Role Status Dates Dr. Corbin Vidal DO Primary Care Provider Active Start: February 15, 2025 End: February 15, 2025 Dr. Corbin Vidal DO Referring Provider Active S tart: February 15, 2025 End: February 15, 2025 Dr. Jamie Castañeda MD Attending Provider Active S tart: February 15, 2025 End: February 15, 2025 Director [place] Relationship Specialty Start Date End Date Harrison Moseley MD [address] [place] [address] PCP - General Gastroenterology 01/11/25 Anastacio Cisneros MD [address] [place] [address] General Surgery 01/03/25 Goals (unrecognized section and content) Goals may be documented in a n alternate section Source Comments (unrecognize d section and content) In the event this informatio n is protected by the Federal Confidentiality of Alcohol and Drug Abuse Patient Records regulations: The Federal rules restrict any use of the information to criminally investigate or prosecute any alcohol or drug abuse patient.[facility] the event this information is protected by the Federal Confidentiality of Alcohol and Drug Abuse Patient Records regulations: The Federal rules restrict any use of the information to criminally investigate or prosecute any alcohol or drug abuse patient.[facility] the event this information is protected by the Federal Confidentiality of Alcohol and Drug Abuse Patient Records regulations: The Federal rules restrict any use of the information to criminally investigate or prosecute any alcohol or drug abuse patient.[facility] the event this information is protected by the Federal Confidentiality of Alcohol and Drug Abuse Patient Records regulations: The Federal rules restrict any use of the information to criminally investigate or prosecute any alcohol or drug abuse patient.[facility] the event this information is protected by the Federal Confidentiality of Alcohol and Drug Abuse Patient Records regulations: The Federal rules restrict any use of the information to criminally investigate or prosecute any alcohol or drug abuse patient.[facility] the event this information is protected by the Federal Confidentiality of Alcohol and Drug Abuse Patient Records regulations: The Federal rules restrict any use of the information to criminally investigate or prosecute any alcohol or drug abuse patient.[facility] HospitalIn the event this information is protected by the Federal Confidentiality of Alcohol and Drug Abuse Patient Records regulations: The Federal rules restrict any use of the information to criminally investigate or prosecute any alcohol or drug abuse patient.[facility] HospitalIn the event this information is protected by the Federal Confidentiality of Alcohol and Drug Abuse Patient Records regulations: The Federal rules restrict any use of the information to criminally investigate or prosecute any alcohol or drug abuse patient.[facility] Reason for Visit (unrecogniz ed section and content) Reason Comments New Patient Colostomy dysfunctio n Reason Comments Procedure COLOSTOMY REVISION S IMPLE Reason Comments Post Op Reason Comments Procedure COLONOSCOPY INFORMATION SOURCE (unrecogn ized section and content) DATE CREATED AUTHOR 03/11/2025 [facility] DATE CREATED AUTHOR AUTHOR'S BRIGIDA SILVA 04/17/2025 [facility] FOR RECORDS PERTAINING TO PATIENTS WHO ARE OR HAVE BEEN ENROLLED IN A CHEMICAL DEPENDENCY/SUBSTANCEABUSE PROGRAM, SOME INFORMATION MAY BE OMITTED. This clinical summary was aggregated from multiple sources. Caution should be exercised in using it in the provision of clinical care. This summary normalizes information from multiple sources, and as a consequence, information in this document may materially change the coding, format and clinical context of patient data. In addition, data may be omitted in some cases. CLINICAL DECISIONS SHOULD BE BASED ON THE PRIMARY CLINICAL RECORDS. [facility] [employer] [facility] provides no warranty or guarantee [id number] the accuracy [phone] completeness of information in this [id number]
== END 2025-07-11 15:16 | disposition home or self-care (01) ==
PROVIDERS: Emergency Provider Emergency Medicine; PCP Nurse Practitioner Family; Visit Provider Emergency Medicine
DX: S82.142A Displaced bicondylar fracture of left tibia, initial encounter for closed fracture (principal); S80.02XA Contusion of left knee, initial encounter; V19.9XXA Pedal cyclist (driver) (passenger) injured in unspecified traffic accident, initial encounter
CPT/HCPCS: 73552; 73564; 73700; 99284